=== PATIENT | male | born 1950 | race Caucasian/White ===

== ENCOUNTER 2016-12-06 10:41 | Inpatient (IN) | payer MEDICARE, BC, MEDICAID ==
[2016-12-06] VITALS (10 sets, daily range): BP systolic 138–175; BP diastolic 84–104; BMI 37.8
[~2016-12-06] VITALS: Ht 193 cm; Wt 109.8 kg
[~2016-12-06 10:41] MED LIST: BAYER ASPIRIN325 MG PO; BETAPACE 80 MG80 MG PO; CARDURA4 MG PO; COZAAR100 MG PO; ELAVIL25 MG PO; GABAPENTIN100 MG PO; HYDRALAZINE HCL50 MG PO; HYDROCODON-ACE1 EAC7 PO; LANTUS INSULIN10 ML SC; LISINOPRIL10 MG PO; NEPHRO-VITE RX1 TAB PO; NORVASC10 MG PO; NORVASC5 MG PO; OMEPRAZOLE20 M1 PO; PLAVIX75 MG PO; ROCALTROL0.25 MCG PO; SODIUM BICARBO650 MG PO; SYNTHROID100 MCG PO; TRADJENTA5 MG PO; TUMS500 MG PO; ULTRAM50 MG PO
[2016-12-06 11:26] LABS: BASOPHILS 0.2 % (0.0-2.0); EOSINOPHILS 3.8 % (0-7); HEMATOCRIT 31.2 % (42.0-54.0); HEMOGLOBIN 10.2 g/dL (13.5-17.5); IMMATURE GRANULOCYTES 0.1 % (0-5); LYMPHOCYTES 8.9 % (15-50); MCH 31.6 pg (26.0-34.0); MCHC 32.7 g/dL (31.0-37.0); MCV 96.6 fL (80.0-100.0); MEAN PLATELET VOLUME 11.1 fL (7.4-10.4); MONOCYTES 7.7 % (2-11); NEUTROPHILS 79.3 % (40-80); PLATELET COUNT 191 10x3/uL (130-400); RBC 3.23 10x6/uL (4.20-6.10); WBC 8.8 10x3/uL (4.8-10.8)
[2016-12-06 11:52] LABS: ALBUMIN 3.7 g/dL (3.4-5.0); BILIRUBIN - TOTAL 0.41 mg/dL (0.2-1.3); CALCIUM 8.3 mg/dL (8.5-10.1); CARBON DIOXIDE 21.9 mmol/L (21.0-32.0); PROTEIN - SERUM 7.7 g/dL (6.4-8.2)
[2016-12-06 12:10] LABS: ANION GAP 22.2 mmol/L (8-16); POTASSIUM - SERUM 7.1 mmol/L (3.5-5.1); TROPONIN-I 0.017 ng/mL (0.000-0.060)
[2016-12-06 16:40] LABS: ANION GAP 22.6 mmol/L (8-16); CALCIUM 8.1 mg/dL (8.5-10.1); CARBON DIOXIDE 19.4 mmol/L (21.0-32.0); CREATININE - SERUM 13.3 mg/dL (0.6-1.3)
--- NOTE | 2016-12-06 18:08 | NUR ---
1445-RECIEED FROM ER-SOB--STATED DIDNOT GO TO DIALYSIS ON WEDNESDAY WAS NOT FEELING WELL-DIALYSIS SERVICES AWARE OF ADMIT-PT STATED DROVE SELF TO HOSPITAL-SECURITY NOTIFIED OF CAR AND LOCATION-SPOKE WITH PT 1515-DIALYSIS SET UP IN PROGRESS-BMP DRAWN ORDERED 1630-DIALYSIS IN PROGRESS-CONVERSING EASILY-[facility] 1730-DIALYSIS REMAINS IN PROGRESS- 1805-DIALYSIS COMPLETING-SR ON MONITOR-[facility]
--- NOTE | 2016-12-06 23:30 | NUR ---
1929- REPORT RECVD. CARE ASSUMED. INITIAL ASSMNT COMPLETED. SEE FLOWSHEET FOR ALL FINDINGS. AWAKW AND ALERT AND ORIENTED X4. RESP SHALLOW. LUNGS CTA WITH DIM BASES PER AUSC. SPO2 95% ON O2 AT 4 LPM NC. SR ON THE MONITOR. PULSES PALP. SCDS IN USE. AFEBRILE. LEFT AVF CDI POST BEDSIDE HD. MILD HTN NOTED. DENIES PAIN. AFEBRILE. ABD SOFT, BSA X4. ANURIC. BLADDER NON PALP. HOB UP. C/L IN REACH. CONT CURRENT POC. 2100- HS MEDS GIVEN. HS SNACK PROVIDED. VSS. DENIES NEEDS. C/L IN REACH. CONT CURRENT POC. 2329- REASSESSMENT COMPLETED. SEE FLOWSHEET FOR ALL FINDINGS. AWAKE AND ALERT AND ORIENTED X4. RESP SHALLOW. LUNGS CTA WITH DIM BASES PER AUSC. SPO2 95% ON O2 AT 4 LPM NC. SR ON THE MONITOR. PULSES PALP. SCDS IN USE. AFEBRILE. LEFT AVF CDI. ANURIC. DENIES PAIN. AFEBRILE. ABD SOFT, BSA X4. HOB UP. C/L IN REACH. CONT CURRENT POC.
[2016-12-07] VITALS (21 sets, daily range): BP systolic 130–196; BP diastolic 67–95; Ht 193 cm; Wt 109.8 kg
--- NOTE | 2016-12-07 01:30 | NUR ---
RESTING SIDE LYING WITH EYES CLOSED. NO NEEDS VOICED. HOB UP. C/L IN REACH. CONT CURRENT POC.
--- NOTE | 2016-12-07 03:30 | NUR ---
REASSESSMENT COMPLETED. SEE FLOWSHEET FOR ALL FINDINGS. AWAKE AND AOX4. RESP SHALLOW. LUNGS CTA WITH DIM BASES PER AUSC. SPO2 95% ON O2 AT 4 LPM NC. SR ON THE MONITOR. PULSES PALP. SCDS IN USE. AFEBRILE. LEFT AVF CDI. ANURIC. DENIES PAIN. AFEBRILE. ABD SOFT, BSA X4. HOB UP. C/L IN REACH. CONT CURRENT POC.
--- NOTE | 2016-12-07 05:03 | NUR ---
RESTING WITH EYES CLOSED. NO NEEDS VOICED. VSS. HOB UP. C/L IN REACH. CONT CURRENT POC.
[2016-12-07 06:57] LABS: BASOPHILS 0.4 % (0.0-2.0); EOSINOPHILS 4.4 % (0-7); HEMATOCRIT 28.9 % (42.0-54.0); HEMOGLOBIN 8.9 g/dL (13.5-17.5); IMMATURE GRANULOCYTES 0.2 % (0-5); MCH 30.2 pg (26.0-34.0); MCHC 30.8 g/dL (31.0-37.0); MEAN PLATELET VOLUME 11.5 fL (7.4-10.4); MONOCYTES 9.7 % (2-11); NEUTROPHILS 69.3 % (40-80); RBC 2.95 10x6/uL (4.20-6.10)
[2016-12-07 07:02] LABS: PLATELET COUNT 129 10x3/uL (130-400); WBC 5.7 10x3/uL (4.8-10.8)
[2016-12-07 07:37] LABS: CALCIUM 8.2 mg/dL (8.5-10.1); CREATININE - SERUM 11.1 mg/dL (0.6-1.3); PHOSPHOROUS 7.9 mg/dL (2.5-4.9)
[2016-12-07 07:41] LABS: ANION GAP 17.6 mmol/L (8-16); CARBON DIOXIDE 28.7 mmol/L (21.0-32.0); POTASSIUM - SERUM 6.3 mmol/L (3.5-5.1)
--- NOTE | 2016-12-07 14:22 | NUR ---
0700 PT AWAKE ALERT AND ORIENTED X4. ABLE TO OBEY COMMANDS AND ANSWER QUESTIONS WITH NO DEFICITS. DENIES PAIN AT THIS TIME. NORMAL SINUS ON MONITOR, S1 S2 NOTED. FISTULA PRESENT IN LEFT ARM, THRILL AND BRUIT PRESENT. PT SCHEDULED FOR DIALYSIS. VITAL SIGNS STABLE.
--- NOTE | 2016-12-07 14:25 | NUR ---
0900 PT SITTING UP IN BED EATING BREAKFAST INDEPENDENTLY. ABLE TO TAKE MORNING MEDS WITHOUT DIFFICULTY. NO FURTHER CHANGES.
--- NOTE | 2016-12-07 14:25 | NUR ---
1100 NO CHANGES IN STATUS FROM PREVIOUS ASSESSMENT. PT HAS NO COMPLAINTS
--- NOTE | 2016-12-07 14:27 | NUR ---
1300 PT GETTING SET UP FOR DIALYSIS. BP MEDS HELD. PT ATE LUNCH INDEPENDENTLY WITH NO ISSUE
--- NOTE | 2016-12-07 15:14 | NUR ---
1500 PT RESTING PEACEFULLY AT THIS TIME. VITAL SIGNS STABLE. NO FURTHER CHANGES.
--- NOTE | 2016-12-07 17:50 | NUR ---
1700 PT SITTING UP EATING DINNER. TRANSFER ORDERS IN COMPUTER. PT AND VITAL SIGNS STABLE. NO FURTHER CHANGES AT THIS TIME. WILL WAIT FOR ROOM ON FLOOR
--- NOTE | 2016-12-07 19:08 | NUR ---
REPORT RECIEVED, SHIFT ASSESSMENT COMPLETE, PT IS ALERT AND ORIENTED, ON RA WITH 97% O2 SAT. LUNGS CLEAR IN B/L UPPER LOBES, DIMINISHED IN B/L LOWER LOBES, S1S2, CM-NSR, PATENT RIGHT UPPER ARM PIV PATENT LEFT ARM FISTULA, BRUITT AND THRILL NOTED, ABDOMEN IS SOFT AND ROUND WITH ACTIVE BS, PT ANURIC, NO EDEMA NOTED, ALL PPP, VSS, WILL CON'T TO MONITOR
--- NOTE | 2016-12-07 21:38 | NUR ---
NEW TRANSFERE FROM ICU. RECEIVED IN BEDROOM. SITTING IN BED WITH STAFF AT HIS SIDE TAKING VITALS. CALM AND COOPERATIVE WITH CARE. IN GOOD SPIRITS. REQUEST SOMETHING TO EAT. DENIES PAIN AT THIS TIME. CALL LIGHT IN REACH
--- NOTE | 2016-12-07 22:48 | NUR ---
RESTING IN BED WITH EYES CLOSED. NO SIGNS OF DISTRESS. CALL LIGHT IN REACH
[2016-12-08] VITALS: BP 157/72
[2016-12-08 04:00] VITALS: BP 203/95
[2016-12-08 05:59] LABS: BASOPHILS 0.3 % (0.0-2.0); HEMATOCRIT 32.9 % (42.0-54.0); IMMATURE GRANULOCYTES 0.2 % (0-5); LYMPHOCYTES 18.8 % (15-50); MCH 31.3 pg (26.0-34.0); MCHC 32.5 g/dL (31.0-37.0); MCV 96.2 fL (80.0-100.0); MEAN PLATELET VOLUME 11.5 fL (7.4-10.4); MONOCYTES 10.3 % (2-11); NEUTROPHILS 66.4 % (40-80); RBC 3.42 10x6/uL (4.20-6.10); RDW 14.5 % (11.5-14.5); WBC 6.5 10x3/uL (4.8-10.8)
[2016-12-08 06:15] LABS: ANION GAP 14.3 mmol/L (8-16); CALCIUM 8.4 mg/dL (8.5-10.1); CARBON DIOXIDE 29.4 mmol/L (21.0-32.0); CREATININE - SERUM 9.3 mg/dL (0.6-1.3); PHOSPHOROUS 7.4 mg/dL (2.5-4.9); POTASSIUM - SERUM 4.7 mmol/L (3.5-5.1)
[2016-12-08 06:37] LABS: HEMOGLOBIN 10.7 g/dL (13.5-17.5); PLATELET COUNT 162 10x3/uL (130-400)
--- NOTE | 2016-12-08 07:00 | NUR ---
RECEIVED REPORT. ASSUMED CARE OF PATIENT. CALL LIGHT WITHIN REACH. ALERT/ORIENTED. STATING HE THINKS HE MAY GO HOME TODAY. STATES HE FEELS WELL AND WAS INFORMED BY [facility] NURSE THAT ALL HIS LAB LEVELS HAD RETURNED TO BASELINE. AWAITING FOR DR.MC JORDAN TO ROUND THIS AM. NO DISTRESS.
[2016-12-08 08:08] VITALS: BP 156/81
--- NOTE | 2016-12-08 08:15 | NUR ---
WRAPPED AND SECURED RIGHT ARM IV SITE SO PATIENT CAN SHOWER AT THIS TIME. NO DISTRESS.
[2016-12-08] MEDS ORDERED: SYNTHROID100 MCG PO (11:38)
[2016-12-08 11:41] VITALS: BP 159/92
--- NOTE | 2016-12-08 12:18 | NUR ---
EMAR IS NOT WORKING PROPERLY. 1500MG TUMS ADMINISTERED AT THIS TIME. EMAR SHUTS DOWN WHEN TRYING TO DOCUMENT MEDICATION ADMINISTERED. IT DEPARTMENT IS AWARE AND TRYING TO CORRECT THE PROBLEM.
--- NOTE | 2016-12-08 12:30 | NUR ---
22 GAUGE IV REMOVED FROM RIGHT WRIST. NO BLEEDING FROM SITE. CATHETER TIP INTACT. 2X2 GAUZE APPLIED AND SECURED WITH TAPE. TOLERATED IV REMOVAL WELL. NO DISTRESS.
--- NOTE | 2016-12-08 13:32 | NUR ---
DISCHARGE INSTRUCTIONS PROVIDED TO PATIENT AT THIS TIME. 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 PATIENT AMBULATED OFF UNIT WITH ALL PERSONAL BELONGINGS. PATIENT DROVE HIMSELF TO THE HOSPITAL AND HAS HIS CAR. NO RESTRICTIONS PLACED ON DRIVING UPON DISCHARGE. PATIENT LEFT UNIT IN NO DISTRESS.
--- NOTE | 2016-12-08 13:37 | NUR ---
Patient Name: LEO LEUNG Admission Status: ER Accout number: [id number] Admission Date: 12-06-2016 : 1950 Admission Diagnosis:SHORTNESS OF BREATH Attending: JACQUELYN Current LOS: 2 Anticipated DC Date: 12-08-2016 Planned Disposition: Home Primary Insurance: MEDICARE A & B Discharge Planning Comments: * Is the patient Alert and Oriented? Yes 0 * How many steps to enter\exit or inside your home? 5 0 * PCP DR. HANNA PEREZ 0 * Pharmacy [facility] 0 * Preadmission Environment Home Alone 0 * ADLs Independent 0 * Equipment Glucometer Rolling Walker 0 * Other Equipment NO MEDICAL EQUIPMENT PROVIDER PREFERENCE 0 * List name and contact numbers for known caregivers / representatives who currently or will assist patient after discharge: NONE 0 * Community resources currently utilized Other 0 * Please name any agencies selected above. OUTPATIENT DIALYSIS, [facility], [id number], PT DRIVES SELF 0 * Additional services required to return to the preadmission environment? No 0 * Can the patient safely return to the preadmission environment? Yes 0 * Has this patient been hospitalized within the prior 30 days at any hospital? Yes 0 CM MET WITH PT IN ROOM TO DISCUSS DISCHARGE PLANNING AND NEEDS. PT REPORTS LIVING AT HOME INDEPENDENTLY AND ALONE. PT HAS GLUCOMETER AND ROLLING WALKER WITH NO MEDICAL EQUIPMENT PROVIDER PREFERENCE. PT HAS NO OUTSIDE SERVICES ASSISTING IN THE HOME. CM DISCUSSED AVAILABILITY OF HOME HEALTH, REHAB SERVICES AND MEDICAL EQUIPMENT. PT DENIES DISCHARGE NEEDS, REPORTS HE IS DRIVING HIMSELF HOME TODAY. PT REPORTS HE WILL GO TO ALL SCHEDULED DIALYSIS TREATMENTS. IMPORTANT MESSAGE FROM MEDICARE PROVIDED AND EXPLAINED. Showroom Sales Assistant: Goyo Saleh
== END 2016-12-08 13:36 | disposition home or self-care (01) | DRG 640 ==
LOC: D.ER 10:41 → D.M2 13:44 → D.ICU 13:44 → D.M2 12-07 20:59
PROVIDERS: Family Medicine; Internal Medicine Nephrology; ADMIT Internal Medicine Nephrology
PROC: 5A1D60Z (ICD-10-PCS; principal; 2016-12-06)
DX: E87.5 Hyperkalemia (principal); N18.6 End stage renal disease; I12.0 Hypertensive chronic kidney disease with stage 5 chronic kidney disease or end stage renal disease; I69.954 Hemiplegia and hemiparesis following unspecified cerebrovascular disease affecting left non-dominant side; E11.22 Type 2 diabetes mellitus with diabetic chronic kidney disease; Z99.2 Dependence on renal dialysis; Z91.15 Patient's noncompliance with renal dialysis; E11.40 Type 2 diabetes mellitus with diabetic neuropathy, unspecified; I25.10 Atherosclerotic heart disease of native coronary artery without angina pectoris; E03.9 Hypothyroidism, unspecified; I48.91 Unspecified atrial fibrillation; E83.39 Other disorders of phosphorus metabolism; Z95.5 Presence of coronary angioplasty implant and graft; R19.7 Diarrhea, unspecified

== ENCOUNTER → 2017-03-08 11:03 | Outpatient (CLI) | payer MEDICARE, BC, MEDICAID ==
[2016-12-07 10:28] VITALS: BMI 37.7
== END | disposition home or self-care (01) ==
LOC: D.LABREF 11:03
PROVIDERS: Internal Medicine Nephrology
DX: R19.7 Diarrhea, unspecified (principal)

== ENCOUNTER 2017-06-03 11:22 | Day surgery (SDC) | payer MEDICARE, BC, MEDICAID ==
[~2017-06-03] VITALS: Ht 193 cm; Wt 113.6 kg
[2017-06-03 12:11] LABS: BASOPHILS 0.6 % (0-2); EOSINOPHILS 5.3 % (0-7); HEMATOCRIT 32.4 % (42.0-54.0); IMMATURE GRANULOCYTES 0.1 % (0-5); LYMPHOCYTES 18.1 % (15-50); MCH 34.2 pg (26.0-34.0); MCV 100.6 fL (80.0-100.0); MEAN PLATELET VOLUME 11.2 fL (7.4-10.4); MONOCYTES 10.4 % (2-11); NEUTROPHILS 65.5 % (40-80); PLATELET COUNT 194 10x3/uL (130-400); RBC 3.22 10x6/uL (4.20-6.10); RDW 14.9 % (11.5-14.5); WBC 6.8 10x3/uL (4.8-10.8)
[2017-06-03 12:26] LABS: ANION GAP 20.4 mmol/L (8-16); CALCIUM 7.6 mg/dL (8.5-10.1); CARBON DIOXIDE 26.3 mmol/L (21.0-32.0); CREATININE - SERUM 9.2 mg/dL (0.6-1.3); POTASSIUM - SERUM 4.7 mmol/L (3.5-5.1)
[2017-06-03 12:36] LABS: APTT 32.7 SECONDS (22.8-39.4); INR 1.12 (0.85-1.17); PROTIME 14.2 SECONDS (11.6-15.0)
[2017-06-03 12:45] VITALS: BP 154/80; Ht 193 cm; Wt 113.6 kg
--- NOTE | 2017-06-03 15:52 | NUR ---
1545 IV DC WITH CATHER TIP INTACT W/O REDNESS
--- NOTE | 2017-06-07 15:50 | OP ---
PATIENT NAME: LEO LEUNG MEDICAL RECORD: [id number] :52 LOCATION:[facility] ADMISSION DATE: SURGEON: YOANA COPELAND DO DATE OF OPERATION: 06/03/2017 PROCEDURE: EGD with biopsies. INDICATIONS FOR PROCEDURE: Heartburn and diarrhea. SCOPE: [employer] video gastroscope. MEDICATIONS: Propofol 150 mg IV per anesthesia. ESTIMATED BLOOD LOSS: Minimal. COMPLICATIONS: None. FINDINGS: Informed consent was given. The patient was made comfortable with the above medication. After reaching an adequate level of sedation by slow IV push, the patient was placed on his left side. The endoscope was then advanced under direct visualization through the mouth to the second portion of duodenum. The upper, middle, and lower thirds of the esophagus appeared normal. 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 A single biopsy was taken at the squamocolumnar junction to confirm this diagnosis or rule out. The endoscope was then advanced beyond the GE junction into the stomach and retroflexed to view the cardia and fundus which appeared normal. In the stomach, the rugae were enlarged, but did not appear abnormal. The endoscope was advanced down to the antrum and prepyloric region, which also appeared normal. It was advanced beyond the pylorus into the duodenum where there was some erythema and granularity consistent duodenitis. The scope was then withdrawn back into the stomach and random biopsies were taken to submit for histology and to rule out H. pylori. The endoscope was then withdrawn from the patient. The patient tolerated the procedure well and there were no complications. IMPRESSIONS: 1. Reflux esophagitis grade B. 2. 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 3. Erythema and granularity in the duodenum consistent with duodenitis. PLAN AND RECOMMENDATIONS: 1. Discharge home when recovery parameters are met. 2. Follow up biopsy specimen results. 3. Continue current diet and current medications. 4. If biopsies indicate presence of H. pylori, treatment will be given. 5. If biopsies indicate Nicholson esophagus is present, surveillance endoscopies will be arranged. 6. Proceed with colonoscopy as scheduled for biopsies of the colon and collection of stool to rule out infectious cause of diarrhea. TRANSINT:[id number] Voice Confirmation ID: [id number] DOCUMENT ID: [id number] OPERATIVE REPORT [id number] LEO LEUNG YOAAN COPELAND DO at 1550 CC: [id number] DICTATION DATE: 06/03/17 1452 LINE AND FRAME POLER: 06/03/17 2321 [facility] 06/03/17 [id number] [place] [address]
== END 2017-06-03 15:57 | disposition home or self-care (01) ==
LOC: D.OPS 11:22
PROVIDERS: Anesthesiology
DX: K21.0 Gastro-esophageal reflux disease with esophagitis (principal); R19.7 Diarrhea, unspecified; F17.200 Nicotine dependence, unspecified, uncomplicated; I25.10 Atherosclerotic heart disease of native coronary artery without angina pectoris; E03.9 Hypothyroidism, unspecified; E11.22 Type 2 diabetes mellitus with diabetic chronic kidney disease; I12.0 Hypertensive chronic kidney disease with stage 5 chronic kidney disease or end stage renal disease; N18.6 End stage renal disease; Z99.2 Dependence on renal dialysis; Z95.5 Presence of coronary angioplasty implant and graft; Z01.812 Encounter for preprocedural laboratory examination

== ENCOUNTER 2017-06-10 10:13 | Day surgery (SDC) | payer MEDICARE, BC, MEDICAID | END 2017-06-10 15:40 | disposition home or self-care (01) | LOC: D.OPS 10:13 | DX: D12.4 Benign neoplasm of descending colon (principal); K63.5 Polyp of colon; K57.30 Diverticulosis of large intestine without perforation or abscess without bleeding; F17.200 Nicotine dependence, unspecified, uncomplicated; I25.10 Atherosclerotic heart disease of native coronary artery without angina pectoris; E03.9 Hypothyroidism, unspecified; Z01.812 Encounter for preprocedural laboratory examination; J44.9 Chronic obstructive pulmonary disease, unspecified; N18.6 End stage renal disease; Z99.2 Dependence on renal dialysis ==

== ENCOUNTER 2017-11-17 11:38 | Outpatient (CLI) | payer MEDICARE, BC, MEDICAID ==
[~2017-11-17] VITALS: Ht 193 cm; Wt 116.6 kg
--- NOTE | ~2017-11-17 | OP ---
PATIENT NAME: LEO LEUNG MEDICAL RECORD: [id number] :52 LOCATION:[facility] ADMISSION DATE:11/17/17 SURGEON: VIRY NOLAN MD DATE OF OPERATION: 11/18/2017 PROCEDURES: 1. PTCA stent LAD. 2. Left heart catheterization. 3. Selective coronary angiography. 4. Left ventriculogram. 5. Intravascular ultrasound. INDICATION: Unstable angina. PROCEDURE IN DETAIL: After informed consent was obtained about the risks, benefits as well as alternative therapies, the patient elected to proceed with angiogram and angioplasty. The right femoral area was prepped and draped in normal sterile fashion. The right femoral artery was cannulated via modified Seldinger technique with placement of 6-Hungarian sheath. All catheters exchanged through this sheath. FINDINGS: The left ventriculogram was performed in standard 30-degree ARCOS view, reveals decreased, ejection fraction of 30% to 35%. SELECTIVE CORONARY ANGIOGRAPHY: 1. Left main is with no significant angiographic disease. 2. Left anterior descending has a long area of 80% to 90% stenosis in the mid distal vessel. 3. Left circumflex has mild irregularities, but no flow-limiting stenosis. Intravascular ultrasound of the left circumflex reveals no significant stenosis of the circumflex. 4. Right coronary is severely diffusely diseased, multiple areas of heavy calcification and tortuosity and a subtotal stenosis. This is not amenable to transcatheter revascularization. PTCA STENT OF THE LAD: The stent used was a 2.5 x 26 and 2.25 x 18 both Integrity stents. Result was 0% residual stenosis. OVERALL IMPRESSION: Successful percutaneous transluminal coronary angioplasty stent of the left anterior descending going from 80% to 90% initial stenosis to 0% residual stenosis, very significant disease of the diffusely diseased RCA that has to be treated medically. TRANSINT:[id number] Voice Confirmation ID: [id number] DOCUMENT ID: [id number] VIRY NOLAN MD at 1148 CC: [id number] DICTATION DATE: 11/18/17 1322 COMMUNICABLE DISEASE SPECIALIST: 11/18/17 1331 DIS IN 11/18/17 [facility] [address] [place] [address]
--- NOTE | ~2017-11-17 | DS ---
PATIENT:LEO PEREZ :52 MEDICAL RECORD: [id number] DISCHARGE SUMMARY ADMISSION DATE: 11/17/17 DISCHARGE DATE: 11/18/17 DISCHARGE DIAGNOSES: 1. Unstable angina. 2. Coronary artery disease. 3. Hypertension. 4. Hyperlipidemia. HOSPITAL COURSE: Mr. Perez presents with unstable anginal symptomatology, found to have 2-vessel disease to the LAD and RCA. The RCA is not amenable to transcatheter revascularization due to the diffuse severe nature of the disease. The LAD was amenable, underwent successful PTCA stent of the LAD. Discharged home with the addition of Plavix and aspirin to his medical regimen. He will follow up with [facility] in 1 month. TRANSINT:[id number] Voice Confirmation ID: [id number] DOCUMENT ID: [id number] VIRY NOLAN MD at 1148 CC: [id number] DICTATION DATE: 11/18/17 1320 TONG CARRIER: 11/18/17 1513 DIS IN 11/18/17 [facility] [address] [place] [address]
--- NOTE | ~2017-11-17 | HEMODYNAMI ---
PATIENT:LEO LEUNG MEDICAL RECORD: [id number] : 52 LOCATION[facility] [facility] [id number] ADMISSION DATE: 11/17/17 Generatedon:11/18/201713:24 Patient name: LEO LEUNG Patient #: [id number] SSN: : Date of study: 11/18/2017 Page: Of Hemodynamic Procedure Report Patient Data Patient Demographics Procedure consent was obtained First Name: LEO Gender: Male Last Name: XOCHITL : 1950 [facility] Initial: D Age: 67 year(s) Patient #: [id number] Race: Additional ID: [id number] Contact details Address: [address] [place] [address] ROAD State: [place] City: [place] Zip code: [facility] Past Medical History Allergies Allergen Reaction Date Comments Reported Other allergy 12/24/2015 ultram Other allergy 07/04/2016 Tramadol Admission Admission Data Admission Date: 11/17/2017 Admission Time: 16:52 Room #: .2124 Procedure Procedure Types Cath Procedure Diagnostic Procedure [facility] w/Coronaries FFR/IVUS Intra-Coronary IVUS Initial PCI Procedure Coronary Stent Coronary Stent Initial Miscellaneous Procedures Moderate Sedation up to 15 minutes Procedure Description Procedure Date Procedure Date: 11/18/2017 Procedure Start Time: 13:02 Procedure End Time: 13:24 Procedure Staff Name Function Jose D Mojica MD Performing Physician Nancy Cotton RT Monitor Mauro Melara RT Scrub Johann Tse RN Nurse Procedure Data Cath Procedure Fluoroscopy Diagnostic fluoroscopy Total fluoroscopy Time: 4.7 time: 4.7 min min Diagnostic fluoroscopy Total fluoroscopy dose: dose: 1644 mGy 1644 mGy Contrast Material Contrast Material Type Amount (ml) Isovue 300 113 Entry Location Entry Primary Successful Side Size Upsize Upsize Entry Closure Succes sful Closure Location (Fr) 1 (Fr) 2 (Fr) Remarks Device Remarks Femoral Right 5 Fr 6 Fr Exoseal artery Short Estimated blood loss: 10 ml Diagnostic catheters Device Type Used For End Catheter Placement MULTIPACK Pigtail 5 Fr LV Angiography catheter MULTIPACK JL 4.0 5Fr Left Coronary catheter Angiography MULTIPACK 3DRC 5Fr Right Coronary catheter Angiography Procedure Complications No complications Procedure Medications Medication Administration Route Dosage 0.9% NaCl I.V. 100 ml/hr Oxygen NC 2 l/min Heparin Flush Bag added to field 2 bags (1000units/500ml NS) Lidocaine 2% added to field 20 Versed I.V. 2 mg Fentanyl I.V. 100 mcg Fentanyl I.V. 50 mcg Versed I.V. 1 mg Heparin Bolus I.V. 4000 units Integrilin (Bolus I.V. 10.2 ml 2mg/ml) Integrilin (Bolus wasted 9.8 ml 2mg/ml) Plavix P.O. 600 mg Hemodynamics Rest Heart Rate: 63 (bpm) Snapshots Pre Cath Intra NCS Post Cath Vital Signs Time Heart Resp SPO2 etCO2 NIBP (mmHg) Rhythm Pain Sedation Rate (ipm) (%) (mmHg) Status Level (bpm) 12:53:23 61 14 98 0 162/90(130) NSR 0 (11) 10(A) , No pain 12:58:11 62 13 98 0 153/88(131) NSR 0 (11) 10(A) , No pain 13:02:56 59 17 96 0 116/67(93) NSR 0 (11) 10(A) , No pain 13:08:20 71 14 90 0 118/78(103) NSR 0 (11) 10(A) , No pain 13:13:04 64 17 97 0 126/66(101) NSR 0 (11) 10(A) , No pain 13:17:49 62 15 98 0 123/71(96) NSR 0 (11) 10(A) , No pain 13:22:34 65 10 97 0 122/71(94) NSR 0 (11) 10(A) , No pain Medications Time Medication Route Dose Verified Delivered Reason Notes Effectiveness by by 12:57:04 0.9% NaCl I.V. 100 Johann Johann Per physician ml/hr Dedrick Tse RN RN 12:57:18 Oxygen NC 2 Johann Johann Per physician l/min Dedrick Tse RN RN 12:57:29 Heparin Flush added 2 Johann Johann used for Bag to bags Lorigan Lorigan procedure (1000units/500ml field RN RN NS) 12:57:40 Lidocaine 2% added 20ml Johann Johann for local to vial Dedrick Tse anesthetic RN RN 12:58:20 Versed I.V. 2 mg Johann Johann for sedation Dedrick Tse RN RN 12:58:29 Fentanyl I.V. 100 Johann Johann for sedation mcg Dedrick Tse RN RN 13:01:40 Fentanyl I.V. 50 Johann Johann for sedation mcg Dedrick Tse RN RN 13:01:47 Versed I.V. 1 mg Johann Johann for sedation Dedrick Tse RN RN 13:11:06 Heparin Bolus I.V. 4000 Johann Johann for units Dedrick Tse anticoagulation RN RN 13:11:28 Integrilin I.V. 10.2 Johann Johann for (Bolus 2mg/ml) ml Dedrick Tse antiplatelet RN RN therapy 13:11:45 Integrilin wasted 9.8 Johann Johann to sharp's (Bolus 2mg/ml) ml Dedrick Tse RN RN 13:19:17 Plavix P.O. 600 Johann Johann for mg Dedrick Tse antiplatelet RN RN therapy Procedure Log Time Note 12:26:42 Mauro Melara RT(R) (CV) sent for patient. Start room use. 12:43:50 Time tracking: Regular hours 12:43:53 Plan of Care:Hemodynamics will remain stable., Cardiac rhythm will remain stable., Comfort level will be maintained., Respiratory function will remain adequate., Patient/ family verbilizes understanding of procedure., Procedure tolerated without complication., Recovers from procedure without complications.. 12:46:47 Patient received from PCU to CCL 1 Alert and oriented. Tansferred to table in Supine position. 12:46:48 Warm blankets applied, and yani hugger turned on for patient comfort. 12:46:48 Correct patient and procedure confirmed by team. 12:46:49 Signed procedure consent form obtained from patient. 12:46:50 ECG and BP/O2 sat monitors applied to patient. 12:46:51 Full Disclosure recording started 12:52:24 Vital chart was started 12:52:33 Rhythm: sinus rhythm 12:52:41 H&P Date Dictated: 11/17/2017 Within 30 days and on chart., H&P Addendum completed by physician on day of procedure. (MUST COMPLETE FOR ALL OUTPATIENTS). 12:52:43 Pre-procedure instructions explained to patient. 12:52:43 Pre-op teaching completed and patient verbalized understanding. 12:52:45 Family in waiting room. 12:52:46 Patient NPO since Midnight. 12:52:54 Is the patient allergic to Iodine/contrast media? No. 12:52:57 Is patient on blood thinner?No 12:53:43 Patient diabetic? No. 12:53:45 Previous problem with sedation/anesthesia? No ? 12:53:46 Snore? Yes 12:53:47 Sleep apnea? Yes 12:53:48 Deviated septum? No 12:53:48 Opens mouth fully? Yes 12:53:49 Sticks out tongue? Yes 12:53:51 Airway obstruction? No ? 12:53:52 Dentures? Yes in 12:53:54 Pre procedure: right dorsailis pedis pulse 2+ Normal; easily identifiable; not easily obliterated 12:54:05 Patient pain scale 0/10 ?. 12:54:12 IV patent on arrival in right wrist with 0.9% NaCl at O. 12:54:16 Lab results completed and on chart. 12:54:20 Right groin area was prepped with chlora-prep and draped in sterile fashion 12:54:21 Alarms reviewed by R. N. 12:54:21 Sharps counted by scrub and verified by R.N. 12:54:24 Use device set Femoral Dx 12:54:25 ACIST Syringe (27439) opened to sterile field. 12:54:26 Bag Decanter (2002S) opened to sterile field. 12:54:26 Medline Cath Pack ([id number]) opened to sterile field. 12:54:26 SHEATH 5FR Mcdavid (FTH239) opened to sterile field. 12:54:28 DIAGNOSTIC WIRE .035 260cm J wire (884827) opened to sterile field. 12:54:29 ACIST Hand Control (66577) opened to sterile field. 12:54:30 ACIST Manifold (12416) opened to sterile field. 12:54:30 DIAGNOSTIC Multipack 5Fr catheter set ([id number]) opened to sterile field. 12:54:30 Tegaderm 4 x 4 (1626W) opened to sterile field. 12:54:31 PERCUTANEOUS ENTRY 19GA needle opened to sterile field. 12:57:04 0.9% NaCl 100 ml/hr I.V. was administered by Johann Tse RN; Per physician; 12:57:18 Oxygen 2 l/min NC was administered by Johann sTe RN; Per physician; 12:57:29 Heparin Flush Bag (1000units/500ml NS) 2 bags added to field was administered by Johann Tse RN; used for procedure; 12:57:40 Lidocaine 2% 20ml vial added to field was administered by Johann Tse RN; for local anesthetic; 12:57:59 Final Timeout: patient, procedure, and site verified with staff and physician. All members of the team are in agreement. 12:58:00 Right groin site verified by team. 12:58:02 Physical assessment completed. ASA score P 2 - A patient with mild systemic disease as per Jose D Mojica MD. 12:58:05 Sedation plan: IV Moderate Sedation Medication:Versed, Fentanyl 12:58:08 Baseline sample Acquired. 12:58:20 Versed 2 mg I.V. was administered by Johann Tse RN; for sedation; 12:58:29 Fentanyl 100 mcg I.V. was administered by Johann Tse RN; for sedation; 13:01:40 Fentanyl 50 mcg I.V. was administered by Johann Tse RN; for sedation; 13:01:47 Versed 1 mg I.V. was administered by Johann Tse RN; for sedation; 13:02:12 Procedure started. 13:02:13 Zero performed for pressure channel P1 13:02:18 Local anesthetic to right femoral artery with Lidocaine 2% by Jose D Mojica MD.INITIAL ACCESS ONLY 13:02:30 A 5 Fr sheath was inserted into the Right Femoral artery 13:02:52 A MULTIPACK Pigtail 5 Fr catheter was advanced over the wire and used for LV Angiography. 13:03:35 LV gram done using ARCOS 13:03:39 EF : 35 % 13:03:40 LV hemodynamics recorded. 13:03:42 Injector settings: Ml/sec: 10, Volume: 20, 13:03:44 Catheter removed. 13:04:17 A MULTIPACK JL 4.0 5Fr catheter was advanced over the wire and used for Left Coronary Angiography. 13:04:56 Catheter removed. 13:05:29 A MULTIPACK 3DRC 5Fr catheter was advanced over the wire and used for Right Coronary Angiography. 13:06:35 Catheter removed. 13:07:17 [place] IVUS Catheter (09886V) opened to sterile field. 13:07:20 Use device set TAUTH PCI 13:07:24 INFLATOR Merit BasixCompak (OM5714) opened to sterile field. 13:07:24 SHEATH 6FR Mcdavid (WZY319) opened to sterile field. 13:07:30 CHOICE PT Extra Support 182cm wire ([id number]) opened to sterile field. 13:07:35 GUIDE 6FR XBLAD 4.0 catheter ([id number]) opened to sterile field. 13:08:19 Sheath upsized to a 6 Fr Short. 13:09:14 6 Fr XBLAD 4.0 guide catheter was inserted over the wire 13:09:27 Choice PT ES wire advanced. 13:09:47 IVUS catheter advanced over wire. 13:11:06 Heparin Bolus 4000 units I.V. was administered by Johann Tse RN; for anticoagulation; 13:11:27 IVUS pass to Circ lesion performed. 13:11:28 Integrilin (Bolus 2mg/ml) 10.2 ml I.V. was administered by Johann Tse RN; for antiplatelet therapy; 13:11:34 Wire redirected to LAD. 13:11:45 Integrilin (Bolus 2mg/ml) 9.8 ml wasted was administered by Johann Tse RN; to sharp's; 13:14:42 Inflation Number: 1 A INTEGRITY RX 2.5 x 26 stent ([id number]) was prepped and advanced across the Dist LAD. The stent was deployed at 15 DEANA for 0:10 (min:sec). 13:15:06 Stent catheter was removed intact over wire. 13:16:17 Inflation Number: 2 A INTEGRITY RX 2.25 x 18 stent ([id number]) was prepped and advanced across the Dist LAD. The stent was deployed at 13 DEANA for 0:09 (min:sec). 13:16:32 Stent catheter was removed intact over wire. 13:16:33 Wire removed. 13:16:35 Guide catheter removed. 13:16:49 Sheath removed intact; hemostasis achieved with Exoseal to the Right Femoral artery. 13:16:51 Procedure ended.(Physican Out) 13:17:48 Fluoroscopy time 04.70 minutes. 13:17:52 Fluoroscopy dose: 1644 mGy 13:17:52 Flurop Dose total: 1644 13:17:56 Contrast amount:Isovue 300 113ml. 13:17:57 Sharps counted by scrub and verified by R.N. 13:17:59 Insertion/operative site no bleeding no hematoma. 13:18:03 Post-op/insertion site Right Femoral artery dressed using a 4 x 4 and Tegaderm. 13:18:06 Post right femoral artery:stable, clean and dry 13:18:08 Post Procedure Pulses reassessed and unchanged 13:18:11 Post-procedure physical assessment completed. ASA score P 2 - A patient with mild systemic disease as per Jose D Mojica MD. 13:18:17 Post procedure rhythm: unchanged. 13:18:19 Estimated blood loss: 10 ml 13:18:21 Post procedure instruction explained to patient.Patient verbalizes understanding. 13:18:21 Patient needs reinforcement of post procedure teaching. 13:18:37 Procedure type changed to Cath procedure, Diagnostic procedure, LHC, LHC w/Coronaries, FFR/IVUS, Intra-Coronary IVUS Initial, PCI procedure, Coronary Stent, Coronary Stent Initial, Miscellaneous Procedures, Moderate Sedation up to 15 minutes 13:19:09 Procedure Complication : No complications 13:19:12 See physician's report for complete and final results. 13:19:17 Plavix 600 mg P.O. was administered by Johann Tse RN; for antiplatelet therapy; 13:20:24 EXOSEAL 6Fr (EX600) opened to sterile field. 13:21:13 Procedure and supply charges have been captured, reviewed, submitted and are correct. 13:24:00 Vital chart was stopped 13:24:02 Report given to PCU. 13:24:05 Patient transfered to PCU with Stretcher. 13:24:13 Procedure ended. 13:24:13 Full Disclosure recording stopped 13:24:16 End room use (Document Last) Intervention Summary Intervention Notes Time ActionType Lesion and Equipment Action# Pressure Duration Attributes Used 13:14:42 Place stent Dist LAD INTEGRITY RX 1 15 00:10 2.5 x 26 stent ([id number]) 13:16:17 Place stent Dist LAD INTEGRITY RX 2 13 00:09 2.25 x 18 stent ([id number]) Device Usage Item Name Manufacture Quantity Catalog Number Hospital Part Current Mini mal Lot# / Charge Number Stock Stock Serial# Code ACIST Acist 1 10874 702318 527583 227034 20 Syringe Medical (34877) Systems Inc Bag Decanter Microtek 1 2001S 007028 10731 008462 5 (2001S) Medical Inc. Medline Cath Cardinal 1 [id number] 765368 08190 596529 5 Pack Health ([id number]) SHEATH 5FR Terumo 1 NQD164 778874 397909 181006 40 Mcdavid (SQD607) DIAGNOSTIC St Chalino 1 707335 362627 176496 363536 30 WIRE .035 260cm J wire (522056) ACIST Hand Acist 1 86982 655426 967520 566904 5 Control Medical (41572) Systems Inc ACIST Acist 1 95474 177377 214117 301054 5 Manifold Medical (79718) Systems Inc DIAGNOSTIC Cardinal 1 NG5701 206891 43084 347170 30 MultipRPost 5Fr catheter set (NO0673) Tegaderm 4 x 3M 1 1626W 736830 120416 676253 5 4 (1626W) PERCUTANEOUS Cook Medical 1 G54365 884183 605264 5 ENTRY 19GA needle MULTIPACK Cardinal 1 803248 5 Pigtail 5 Fr Health catheter MULTIPACK JL Cardinal 1 830590 5 4.0 5Fr Health catheter MULTIPACK Cardinal 1 068356 5 3DRC 5Fr Health catheter Burke Burke 1 34944H 689068 409507 603782 8 [place] IVUS Catheter (04872M) INFLATOR Merit 1 YU4501 477292 338741 044494 15 Zerista Medical BasixCompak (FV3241) SHEATH 6FR Terumo 1 MWF248 420647 540842 328150 40 Mcdavid (IBQ352) CHOICE PT [place] 1 [id number] 965102 020222 860603 5 Extra Scientific Support 182cm wire (3424989X8) GUIDE 6FR Cardinal 1 43077449 996987 577418 975175 3 XBLAD 4.0 Health catheter (35054514) INTEGRITY RX Medtronic 1 [id number] 245793 906499 024926 5 [id number] 2.5 x 26 stent ([id number]) INTEGRITY RX Medtronic 1 [id number] 411055 129104 428827 5 [id number] 2.25 x 18 stent ([id number]) EXOSEAL 6Fr Cardinal 1 EX600 734561 604060 428859 10 (EX600) Health Signature Audit [place] Stage Time Signature Unsigned Intra-Procedure 11/18/2017 Nancy 1:24:31 PM Counts RT(R) Signatures Monitor : Nancy Signature : Counts RT Date : Time : [address] [address]
--- NOTE | ~2017-11-17 | CN ---
PATIENT NAME:LEO PEREZ MEDICAL RECORD: [id number] : 52 LOCATION:. D.2124 ADMIT DATE: 11/17/17 ACCOUNT: [id number] CONSULTING PHYSICIAN: VIRY NOLAN MD REFERRING PHYSICIAN: VIRY NOLAN MD DATE OF CONSULTATION: 11/17/2017 Cardiology Consult DIAGNOSES: 1. Angina. 2. Shortness of breath, dyspnea on exertion. 3. Coronary artery disease. 4. Hypertension. 5. Hyperlipidemia. 6. End-stage renal failure, on dialysis. HISTORY OF PRESENT ILLNESS: Mr. Perez had an episode of chest pain today with dialysis, but is associated with hypotension, near the end of dialysis. He has been having problems with hypotension, near the end of dialysis recently; however, he continues to have this, this is the first time he has had chest pain, does have a history of cardiac stents, last being a year ago. His EKG is normal. Troponin is normal. PHYSICAL EXAMINATION: GENERAL APPEARANCE: Well-nourished, well-developed, appears stated age. Level of distress, comfortable. PSYCHIATRIC: Mental status, alert, normal affect. Orientation, oriented to time, place and person. EYES: Lids and conjunctiva, noninjected. No discharge, no pallor. ENT: Lips, teeth, gums, normal dentition. Oropharynx, no cyanosis, no pallor. NECK: Carotid arteries, bilateral normal upstroke, no bruits, no thrills. JUGULAR VEINS: No jugular venous pressure or distention. CERVICAL LYMPH NODES: Nontender, nonenlarged. THYROID: Not enlarged. Nontender. No nodules. LUNGS: Respiratory effort, unlabored. CHEST: Normal curvature. No thoracic deformity. No chest wall tenderness. Percussion, resonant. Auscultation, clear. No wheezes, no rales, no rhonchi. CARDIOVASCULAR: Precordial exam, nondisplaced. No heaves or pericardial thrills. Rate and rhythm, regular. Heart sounds, normal S1, normal S2. No S3, no gallop, no rub. Systolic murmur, not heard. Diastolic murmur, not heard. EXTREMITIES: No cyanosis, no edema. Peripheral pulses, full and equal in all extremities, except as noted. No bruits appreciated. ABDOMEN: Soft, nondistended. Normal aorta. No bruit. Nontender. No masses. Liver, nontender, no hepatomegaly. Spleen, nontender, no splenomegaly. MUSCULOSKELETAL: No joint tenderness. No joint swelling. No erythema. NEUROLOGICAL: Normal gait, normal strength, normal tone. SKIN: Warm and dry. OVERALL IMPRESSION: At this time, most likely secondary to the hypotension from and physiological demand from the dialysis. We will get another troponin. If this is normal, we can discharge him with follow up with Dr. Roberts within the next 2 weeks. TRANSINT:[id number] Voice Confirmation ID: [id number] DOCUMENT ID: [id number] CONSULT REPORT [id number] LEO PEREZ, VIRY CASTELLON at 1322 CC: [id number] DICTATION DATE: 11/17/17 1328 PYROTECHNICS PRESS TENDER: 11/17/17 1424 ADM IN [facility] [address] [place] [address]
[2017-11-17 12:03] LABS: BASOPHILS 0.3 % (0-2); EOSINOPHILS 5.2 % (0-7); HEMATOCRIT 36.3 % (42.0-54.0); HEMOGLOBIN 12.3 g/dL (13.5-17.5); IMMATURE GRANULOCYTES 0.2 % (0-5); LYMPHOCYTES 24.5 % (15-50); MCH 34.5 pg (26.0-34.0); MCHC 33.9 g/dL (31.0-37.0); MCV 101.7 fL (80.0-100.0); MEAN PLATELET VOLUME 11.1 fL (7.4-10.4); MONOCYTES 8.7 % (2-11); NEUTROPHILS 61.1 % (40-80); PLATELET COUNT 194 10x3/uL (130-400); RBC 3.57 10x6/uL (4.20-6.10); RDW 14.1 % (11.5-14.5)
[2017-11-17 12:18] LABS: ALBUMIN 3.9 g/dL (3.4-5.0); ALKALINE PHOSPHATASE 91 U/L (46-116); ALT (SGPT) 18 U/L (10-68); BILIRUBIN - TOTAL 0.36 mg/dL (0.2-1.3); CALC OSMOLALITY 282 mosm/kg (275-300); CALCIUM 8.6 mg/dL (8.5-10.1); CARBON DIOXIDE 27.9 mmol/L (21.0-32.0); CHLORIDE - SERUM 97 mmol/L (98-107); CREATININE - SERUM 6.6 mg/dL (0.6-1.3); GLUCOSE 120 mg/dL (74-106); POTASSIUM - SERUM 4.3 mmol/L (3.5-5.1); PROTEIN - SERUM 8.8 g/dL (6.4-8.2); SODIUM 138 mmol/L (136-145); UREA NITROGEN 30 mg/dL (7-18); eGFR NON AFRICAN AMERICAN 9 mL/min (90-120)
[2017-11-17 12:26] LABS: CHOL - HDL RATIO 4.5 ratio (2.3-4.9); CHOLESTEROL, TOTAL 165 mg/dL (0-200); CKMB 2.3 U/L (0.0-3.6); CREATINE KINASE 116 UL (21-232); HDL CHOLESTEROL 37 mg/dL (32-96); LDL CHOLESTEROL 103 mg/dL (0-100); LDL-HDL RATIO 2.8 ratio (1.5-3.5); TRIGLYCERIDE 125 mg/dL (30-200)
[2017-11-17 12:30] LABS: TROPONIN-I < 0.017 ng/mL (0.000-0.060)
[2017-11-17 19:00] VITALS: BP 145/77
[2017-11-17] MEDS ORDERED: HYDROCODON-ACE1 EAC7 PO (20:49)
[2017-11-18 02:21] VITALS: Ht 193 cm; Wt 116.6 kg
[2017-11-18 04:00] VITALS: BP 140/81
[2017-11-18 07:44] VITALS: BP 141/83
[2017-11-18 12:13] VITALS: BP 145/85
[2017-11-18] MEDS ORDERED: PLAVIX75 MG PO (14:15)
== END 2017-11-18 18:00 | disposition home or self-care (01) ==
LOC: OBSVTIME → D.OPS 11:38 → D.ER 11:38 → D.EDHOLD 16:52 → OBSVTIME 16:52 → D.M2 16:52 → D.EDHOLD 16:52 → D.M2 18:38 → D.EDHOLD 18:38 → EDSTATUS 11-18 12:15 → D.CLR 11-18 13:40 → D.M2 11-18 13:40 → D.CLR 11-18 18:00 → D.OPS 11-18 18:00
PROVIDERS: Emergency Medicine
DX: I25.110 Atherosclerotic heart disease of native coronary artery with unstable angina pectoris (principal); I12.0 Hypertensive chronic kidney disease with stage 5 chronic kidney disease or end stage renal disease; N18.6 End stage renal disease; Z99.2 Dependence on renal dialysis; E78.5 Hyperlipidemia, unspecified; Z01.812 Encounter for preprocedural laboratory examination

== ENCOUNTER 2017-11-19 08:16 | Emergency (ER) | payer MEDICARE, BC, MEDICAID ==
[2017-11-19 08:46] LABS: BASOPHILS 0.1 % (0-2); EOSINOPHILS 5.5 % (0-7); HEMATOCRIT 35.4 % (42.0-54.0); IMMATURE GRANULOCYTES 0.1 % (0-5); MCH 34.5 pg (26.0-34.0); MCHC 33.9 g/dL (31.0-37.0); MCV 101.7 fL (80.0-100.0); MEAN PLATELET VOLUME 11.4 fL (7.4-10.4); MONOCYTES 7.3 % (2-11); PLATELET COUNT 173 10x3/uL (130-400); RBC 3.48 10x6/uL (4.20-6.10); RDW 14.1 % (11.5-14.5); WBC 7.2 10x3/uL (4.8-10.8)
[2017-11-19 08:59] LABS: ALBUMIN 3.6 g/dL (3.4-5.0); ALKALINE PHOSPHATASE 79 U/L (46-116); BILIRUBIN - TOTAL 0.36 mg/dL (0.2-1.3); CALCIUM 8.1 mg/dL (8.5-10.1); CARBON DIOXIDE 24.7 mmol/L (21.0-32.0); CHLORIDE - SERUM 97 mmol/L (98-107); GLUCOSE 140 mg/dL (74-106); PROTEIN - SERUM 7.8 g/dL (6.4-8.2); SODIUM 135 mmol/L (136-145)
[2017-11-19 09:00] LABS: ALT (SGPT) 26 U/L (10-68); CALC OSMOLALITY 284 mosm/kg (275-300); CREATININE - SERUM 9.4 mg/dL (0.6-1.3); UREA NITROGEN 48 mg/dL (7-18); eGFR NON AFRICAN AMERICAN 6 mL/min (90-120)
[2017-11-19 09:10] LABS: CHOL - HDL RATIO 5.5 ratio (2.3-4.9); CHOLESTEROL, TOTAL 153 mg/dL (0-200); CKMB 13.4 U/L (0.0-3.6); CREATINE KINASE 230 UL (21-232); HDL CHOLESTEROL 28 mg/dL (32-96); LDL CHOLESTEROL 105 mg/dL (0-100); LDL-HDL RATIO 3.8 ratio (1.5-3.5); TRIGLYCERIDE 104 mg/dL (30-200)
[2017-11-19 09:15] LABS: TROPONIN-I 11.625 ng/mL (0.000-0.060)
== END 2017-11-19 09:42 | disposition home or self-care (01) ==
LOC: D.ER 08:16
PROVIDERS: Emergency Medicine
DX: R07.9 Chest pain, unspecified (principal)

== ENCOUNTER → 2017-12-28 09:38 | Outpatient (CLI) | payer MEDICARE, BC, MEDICAID ==
[~2017-12-28 09:38] MED LIST changes: +ENTRESTO 24 MG1 EACH PO; +LEVOXYL100 MCG PO; +RENA-VITE TABL0.8 MG PO
== END | disposition home or self-care (01) ==
LOC: D.RAD 09:38
DX: R06.02 Shortness of breath (principal)

== ENCOUNTER 2018-02-21 09:41 | Emergency (ER) | payer MEDICARE, BC, MEDICAID ==
[~2018-02-21 09:41] MED LIST changes: -ENTRESTO 24 MG1 EACH PO; -LEVOXYL100 MCG PO; -RENA-VITE TABL0.8 MG PO
[2018-02-21 10:36] LABS: BASOPHILS 0.4 % (0-2); EOSINOPHILS 4.9 % (0-7); HEMOGLOBIN 9.2 g/dL (13.5-17.5); IMMATURE GRANULOCYTES 0.2 % (0-5); LYMPHOCYTES 18.2 % (15-50); MCH 34.1 pg (26.0-34.0); MCHC 34.1 g/dL (31.0-37.0); MEAN PLATELET VOLUME 10.9 fL (7.4-10.4); MONOCYTES 9.2 % (2-11); NEUTROPHILS 67.1 % (40-80); PLATELET COUNT 165 10x3/uL (130-400); RDW 13.8 % (11.5-14.5); WBC 5.1 10x3/uL (4.8-10.8)
[2018-02-21 10:47] LABS: ALBUMIN 3.1 g/dL (3.4-5.0); ALKALINE PHOSPHATASE 70 U/L (46-116); ALT (SGPT) 13 U/L (10-68); CALC OSMOLALITY 285 mosm/kg (275-300); CARBON DIOXIDE 30.7 mmol/L (21.0-32.0); CHLORIDE - SERUM 100 mmol/L (98-107); CREATININE - SERUM 7.2 mg/dL (0.6-1.3); GLUCOSE 119 mg/dL (74-106); POTASSIUM - SERUM 3.9 mmol/L (3.5-5.1); PROTEIN - SERUM 7.1 g/dL (6.4-8.2); SODIUM 138 mmol/L (136-145); UREA NITROGEN 39 mg/dL (7-18); eGFR NON AFRICAN AMERICAN 8 mL/min (90-120)
[2018-02-21 10:51] LABS: CREATINE KINASE 62 UL (21-232); TROPONIN-I < 0.017 ng/mL (0.000-0.060)
== END 2018-02-21 11:24 | disposition home or self-care (01) ==
LOC: D.ER 09:41
PROVIDERS: Emergency Medicine
DX: R00.1 Bradycardia, unspecified (principal); I12.9 Hypertensive chronic kidney disease with stage 1 through stage 4 chronic kidney disease, or unspecified chronic kidney disease; N18.9 Chronic kidney disease, unspecified; J44.9 Chronic obstructive pulmonary disease, unspecified

== ENCOUNTER 2018-02-25 12:31 | Inpatient (IN) | payer MEDICARE, BC, MEDICAID ==
[2018-02-25] VITALS (8 sets, daily range): BP systolic 116–156; BP diastolic 56–91; BMI 31.0
[~2018-02-25] VITALS: Ht 193 cm; Wt 114.5 kg
--- NOTE | ~2018-02-25 | CN ---
PATIENT NAME:LEO PEREZ MEDICAL RECORD: [id number] : 52 LOCATION:D. D.2112 ADMIT DATE: 02/25/18 ACCOUNT: [id number] CONSULTING PHYSICIAN: VIRY NOLAN MD REFERRING PHYSICIAN: RHETT HAZEL MD DATE OF CONSULTATION: 02/25/2018 Cardiology Consultation DIAGNOSES: 1. Angina. 2. Abnormal ECG. 3. Coronary artery disease. 4. Previous percutaneous transluminal coronary angioplasty stent. 5. Anemia. 6. Gastrointestinal bleed. 7. End-stage renal failure, on dialysis. HISTORY OF PRESENT ILLNESS: Mr. Perez presents with chest discomfort after dialysis. His EKG has definite ST-T changes laterally and anteriorly. He is status post PTCA stent of the LAD in October. He was doing well until a week ago after a colonoscopy and endoscopy. He began having black tarry stools and he has not felt well, since then his hemoglobin is 6.2. PHYSICAL EXAMINATION: GENERAL APPEARANCE: Well-nourished, well-developed, appears stated age. Level of distress, comfortable. PSYCHIATRIC: Mental status, alert, normal affect. Orientation, oriented to time, place and person. EYES: Lids and conjunctiva, noninjected. No discharge, no pallor. ENT: Lips, teeth, gums, normal dentition. Oropharynx, no cyanosis, no pallor. NECK: Carotid arteries, bilateral normal upstroke, no bruits, no thrills. JUGULAR VEINS: No jugular venous pressure or distention. CERVICAL LYMPH NODES: Nontender, nonenlarged. THYROID: Not enlarged. Nontender. No nodules. LUNGS: Respiratory effort, unlabored. CHEST: Normal curvature. No thoracic deformity. No chest wall tenderness. Percussion, resonant. Auscultation, clear. No wheezes, no rales, no rhonchi. CARDIOVASCULAR: Precordial exam, nondisplaced. No heaves or pericardial thrills. Rate and rhythm, regular. Heart sounds, normal S1, normal S2. No S3, no gallop, no rub. Systolic murmur, not heard. Diastolic murmur, not heard. EXTREMITIES: No cyanosis, no edema. Peripheral pulses, full and equal in all extremities, except as noted. No bruits appreciated. ABDOMEN: Soft, nondistended. Normal aorta. No bruit. Nontender. No masses. Liver, nontender, no hepatomegaly. Spleen, nontender, no splenomegaly. MUSCULOSKELETAL: No joint tenderness. No joint swelling. No erythema. NEUROLOGICAL: Normal gait, normal strength, normal tone. SKIN: Warm and dry. OVERALL IMPRESSION: Anginal symptomatology, but in conjunction with the anemia. At this time, we do not need to perform cardiac catheterization, only replace blood. From a standpoint of dual antiplatelet therapy, we can discontinue the aspirin as well as the Plavix as he received bare metal stents in October. We will restart the aspirin when stable from GI and bleeding standpoint. CONSULT REPORT [id number] LEO PEREZ TRANSINT:[id number] Voice Confirmation ID: [id number] DOCUMENT ID: [id number] VIRY NOLAN MD at 1403 CC: [id number] DICTATION DATE: 02/25/18 1512 RUBBER MOLDER: 02/25/18 1542 ADM IN [facility] [address] [place] [address]
[2018-02-25 12:51] LABS: BASOPHILS 0.4 % (0-2); EOSINOPHILS 3.1 % (0-7); IMMATURE GRANULOCYTES 0.2 % (0-5); LYMPHOCYTES 23.5 % (15-50); MCHC 35.8 g/dL (31.0-37.0); MCV 100.6 fL (80.0-100.0); MEAN PLATELET VOLUME 10.4 fL (7.4-10.4); MONOCYTES 10.1 % (2-11); NEUTROPHILS 62.7 % (40-80); PLATELET COUNT 172 10x3/uL (130-400); WBC 5.5 10x3/uL (4.8-10.8)
[2018-02-25 12:54] LABS: HEMATOCRIT 17.6 % (42.0-54.0); HEMOGLOBIN 6.3 g/dL (13.5-17.5); RBC 1.75 10x6/uL (4.20-6.10)
[2018-02-25 13:14] LABS: ALBUMIN 2.9 g/dL (3.4-5.0); ALKALINE PHOSPHATASE 54 U/L (46-116); ALT (SGPT) 11 U/L (10-68); BILIRUBIN - TOTAL 0.21 mg/dL (0.2-1.3); CALC OSMOLALITY 285 mosm/kg (275-300); CALCIUM 7.9 mg/dL (8.5-10.1); CARBON DIOXIDE 30.1 mmol/L (21.0-32.0); CHLORIDE - SERUM 98 mmol/L (98-107); CREATININE - SERUM 4.4 mg/dL (0.6-1.3); GLUCOSE 136 mg/dL (74-106); POTASSIUM - SERUM 3.3 mmol/L (3.5-5.1); PROTEIN - SERUM 6.3 g/dL (6.4-8.2); SODIUM 138 mmol/L (136-145); UREA NITROGEN 34 mg/dL (7-18); eGFR NON AFRICAN AMERICAN 14 mL/min (90-120)
[2018-02-25 13:29] LABS: CHOL - HDL RATIO 4.8 ratio (2.3-4.9); CHOLESTEROL, TOTAL 116 mg/dL (0-200); CKMB 1.6 U/L (0.0-3.6); CREATINE KINASE 65 UL (21-232); HDL CHOLESTEROL 24 mg/dL (32-96); LDL CHOLESTEROL 51 mg/dL (0-100); LDL-HDL RATIO 2.1 ratio (1.5-3.5); MAGNESIUM - SERUM 1.7 mg/dL (1.8-2.4); TRIGLYCERIDE 209 mg/dL (30-200); TROPONIN-I 0.045 ng/mL (0.000-0.060)
[2018-02-25 13:34] LABS: PRO BNP 35885 pg/mL (0-125)
[2018-02-25 15:34] LABS: TROPONIN-I 0.036 ng/mL (0.000-0.060)
[2018-02-25] MEDS ORDERED: COZAAR100 MG PO (17:58)
[2018-02-25] MEDS ORDERED: LEVOXYL112 MC1 PO (18:00)
[2018-02-25] MEDS ORDERED: ENTRESTO 24 MG1 EACH PO (18:05)
[2018-02-25] MEDS ORDERED: RENA-VITE TABL0.8 MG PO (18:08)
[2018-02-25 21:54] LABS: HEMOGLOBIN 6.7 g/dL (13.5-17.5)
[2018-02-25 21:55] LABS: HEMATOCRIT 19.8 % (42.0-54.0)
[2018-02-25 22:14] LABS: CKMB 1.5 U/L (0.0-3.6); CREATINE KINASE 58 UL (21-232); TROPONIN-I 0.059 ng/mL (0.000-0.060)
[2018-02-26] VITALS (13 sets, daily range): BP systolic 123–163; BP diastolic 54–88; BMI 31.2
[2018-02-26 03:14] LABS: BASOPHILS 0.3 % (0-2); EOSINOPHILS 3.3 % (0-7); HEMATOCRIT 22.6 % (42.0-54.0); HEMOGLOBIN 7.6 g/dL (13.5-17.5); IMMATURE GRANULOCYTES 0.2 % (0-5); LYMPHOCYTES 27.6 % (15-50); MCH 32.8 pg (26.0-34.0); MCHC 33.6 g/dL (31.0-37.0); MCV 97.4 fL (80.0-100.0); MEAN PLATELET VOLUME 11.1 fL (7.4-10.4); MONOCYTES 7.3 % (2-11); NEUTROPHILS 61.3 % (40-80); PLATELET COUNT 171 10x3/uL (130-400); RBC 2.32 10x6/uL (4.20-6.10); RDW 16.3 % (11.5-14.5); WBC 9.1 10x3/uL (4.8-10.8)
[2018-02-26 03:31] LABS: INR 1.1 (0.85-1.17); PROTIME 13.8 SECONDS (11.6-15.0)
[2018-02-26 03:43] LABS: ALKALINE PHOSPHATASE 55 U/L (46-116); BILIRUBIN - TOTAL 0.28 mg/dL (0.2-1.3); CALCIUM 7.8 mg/dL (8.5-10.1); CHLORIDE - SERUM 98 mmol/L (98-107); CKMB 1.5 U/L (0.0-3.6); CREATINE KINASE 66 UL (21-232); GLUCOSE 106 mg/dL (74-106); PROTEIN - SERUM 6.1 g/dL (6.4-8.2); SODIUM 138 mmol/L (136-145)
[2018-02-26 03:45] LABS: ALT (SGPT) 14 U/L (10-68); CALC OSMOLALITY 289 mosm/kg (275-300); TROPONIN-I 0.083 ng/mL (0.000-0.060); UREA NITROGEN 51 mg/dL (7-18); eGFR NON AFRICAN AMERICAN 10 mL/min (90-120)
[2018-02-26 12:36] LABS: HEMATOCRIT 21.8 % (42.0-54.0); HEMOGLOBIN 7.6 g/dL (13.5-17.5)
[2018-02-26 23:05] LABS: HEMATOCRIT 21.9 % (42.0-54.0); HEMOGLOBIN 7.9 g/dL (13.5-17.5)
[2018-02-27] VITALS (10 sets, daily range): BP systolic 137–177; BP diastolic 65–93
[2018-02-27 04:56] LABS: BASOPHILS 0.2 % (0-2); EOSINOPHILS 4.4 % (0-7); HEMATOCRIT 25.5 % (42.0-54.0); HEMOGLOBIN 8.8 g/dL (13.5-17.5); IMMATURE GRANULOCYTES 0.2 % (0-5); LYMPHOCYTES 21.4 % (15-50); MCH 32.2 pg (26.0-34.0); MCHC 34.5 g/dL (31.0-37.0); MEAN PLATELET VOLUME 10.6 fL (7.4-10.4); NEUTROPHILS 65.8 % (40-80); PLATELET COUNT 168 10x3/uL (130-400); RBC 2.73 10x6/uL (4.20-6.10); RDW 16.4 % (11.5-14.5); WBC 8.1 10x3/uL (4.8-10.8)
[2018-02-27 05:01] LABS: MCV 93.4 fL (80.0-100.0)
[2018-02-27 05:13] LABS: ANION GAP 17.6 mmol/L (8-16); CARBON DIOXIDE 25.6 mmol/L (21.0-32.0); POTASSIUM - SERUM 4.2 mmol/L (3.5-5.1)
[2018-02-27 05:14] LABS: CREATININE - SERUM 8.1 mg/dL (0.6-1.3)
[2018-02-28 06:50] LABS: BASOPHILS 0.1 % (0-2); EOSINOPHILS 3.1 % (0-7); HEMATOCRIT 22.6 % (42.0-54.0); HEMOGLOBIN 7.8 g/dL (13.5-17.5); IMMATURE GRANULOCYTES 0.2 % (0-5); LYMPHOCYTES 7.6 % (15-50); MCH 32.4 pg (26.0-34.0); MCHC 34.5 g/dL (31.0-37.0); MCV 93.8 fL (80.0-100.0); MEAN PLATELET VOLUME 10.2 fL (7.4-10.4); MONOCYTES 7.1 % (2-11); NEUTROPHILS 81.9 % (40-80); PLATELET COUNT 173 10x3/uL (130-400); RBC 2.41 10x6/uL (4.20-6.10); WBC 9.4 10x3/uL (4.8-10.8)
[2018-02-28 07:18] LABS: ALBUMIN 2.8 g/dL (3.4-5.0); BILIRUBIN - TOTAL 0.43 mg/dL (0.2-1.3); CALCIUM 7.9 mg/dL (8.5-10.1); CARBON DIOXIDE 24.7 mmol/L (21.0-32.0); PHOSPHOROUS 4.5 mg/dL (2.5-4.9); POTASSIUM - SERUM 4.7 mmol/L (3.5-5.1); PROTEIN - SERUM 6.3 g/dL (6.4-8.2)
[2018-02-28 07:25] LABS: CREATININE - SERUM 10.3 mg/dL (0.6-1.3)
[2018-02-28 08:53] VITALS: BP 157/96
[2018-02-28 11:45] VITALS: BP 175/89
[2018-02-28 20:00] VITALS: BP 153/80
[2018-03-01] VITALS: BP 147/68
[2018-03-01 04:00] VITALS: BP 140/66
[2018-03-01 05:29] LABS: BASOPHILS 0.2 % (0-2); EOSINOPHILS 3.9 % (0-7); HEMATOCRIT 20.2 % (42.0-54.0); IMMATURE GRANULOCYTES 0.2 % (0-5); LYMPHOCYTES 20.5 % (15-50); MCH 32.4 pg (26.0-34.0); MCHC 35.1 g/dL (31.0-37.0); MCV 92.2 fL (80.0-100.0); MEAN PLATELET VOLUME 11.2 fL (7.4-10.4); MONOCYTES 9.5 % (2-11); NEUTROPHILS 65.7 % (40-80); PLATELET COUNT 180 10x3/uL (130-400); RBC 2.19 10x6/uL (4.20-6.10); RDW 16.7 % (11.5-14.5)
[2018-03-01 05:35] LABS: WBC 6.2 10x3/uL (4.8-10.8)
[2018-03-01 05:37] LABS: HEMOGLOBIN 7.1 g/dL (13.5-17.5)
[2018-03-01 05:48] LABS: ANION GAP 15.3 mmol/L (8-16); CALCIUM 7.5 mg/dL (8.5-10.1); CARBON DIOXIDE 28.3 mmol/L (21.0-32.0); CREATININE - SERUM 8.2 mg/dL (0.6-1.3)
[2018-03-01 05:55] LABS: POTASSIUM - SERUM 3.6 mmol/L (3.5-5.1)
[2018-03-01 07:59] VITALS: BP 125/59
[2018-03-01 08:06] LABS: % SATURATION 22 % (15-55); IRON 35 ug/dl (35-150); TOTAL IRON BIND CAPACITY 157 ug/dl (260-445); UNSAT IRON BIND CAPACITY 122 ug/dl (150-375)
[2018-03-01 08:24] LABS: INR 1.2 (0.85-1.17); PROTIME 14.8 SECONDS (11.6-15.0)
[2018-03-01 11:19] LABS: HEPATITIS C ANTIBODY <0.1 (0.0-0.9)
[2018-03-01 11:48] VITALS: BP 102/49
[2018-03-01 15:46] VITALS: BP 115/53
[2018-03-01 19:29] LABS: HEMATOCRIT 19.4 % (42.0-54.0); HEMOGLOBIN 6.8 g/dL (13.5-17.5)
[2018-03-01 20:28] VITALS: BP 107/56
[2018-03-02 01:30] VITALS: BP 121/65
[2018-03-02 07:44] VITALS: BP 137/81
[2018-03-02 10:15] LABS: HEMATOCRIT 21.3 % (42.0-54.0)
[2018-03-02 10:27] LABS: HEMOGLOBIN 7.3 g/dL (13.5-17.5)
[2018-03-02 19:25] LABS: HEMATOCRIT 24.7 % (42.0-54.0); HEMOGLOBIN 8.4 g/dL (13.5-17.5)
[2018-03-02 20:00] VITALS: BP 128/67
[2018-03-03 00:54] VITALS: BP 135/83
[2018-03-03 04:00] VITALS: BP 151/67
[2018-03-03 06:39] LABS: BASOPHILS 0.2 % (0-2); HEMATOCRIT 26.9 % (42.0-54.0); HEMOGLOBIN 9.2 g/dL (13.5-17.5); IMMATURE GRANULOCYTES 0.2 % (0-5); LYMPHOCYTES 13.8 % (15-50); MCH 30.6 pg (26.0-34.0); MCHC 34.2 g/dL (31.0-37.0); MCV 89.4 fL (80.0-100.0); MEAN PLATELET VOLUME 10.3 fL (7.4-10.4); MONOCYTES 10.6 % (2-11); NEUTROPHILS 70.2 % (40-80); RBC 3.01 10x6/uL (4.20-6.10); RDW 17.6 % (11.5-14.5); WBC 6.2 10x3/uL (4.8-10.8)
[2018-03-03 06:49] LABS: ANION GAP 14.7 mmol/L (8-16); CALCIUM 8.1 mg/dL (8.5-10.1); CARBON DIOXIDE 28.4 mmol/L (21.0-32.0); CREATININE - SERUM 7.6 mg/dL (0.6-1.3); PHOSPHOROUS 4.8 mg/dL (2.5-4.9); POTASSIUM - SERUM 4.1 mmol/L (3.5-5.1)
[2018-03-03 06:54] LABS: PLATELET COUNT 127 10x3/uL (130-400)
[2018-03-03 08:59] VITALS: BP 171/82
[2018-03-03 12:13] VITALS: BP 179/99
[2018-03-03 14:31] LABS: HEMATOCRIT 25.8 % (42.0-54.0); HEMOGLOBIN 8.7 g/dL (13.5-17.5)
[2018-03-03 15:43] VITALS: BP 156/68
[2018-03-03 21:08] VITALS: BP 156/98
[2018-03-03 22:49] LABS: HEMATOCRIT 25.1 % (42.0-54.0); HEMOGLOBIN 8.7 g/dL (13.5-17.5)
[2018-03-04 01:39] VITALS: BP 141/86
[2018-03-04 05:49] LABS: BASOPHILS 0.3 % (0-2); EOSINOPHILS 5.7 % (0-7); HEMATOCRIT 26.9 % (42.0-54.0); IMMATURE GRANULOCYTES 0.1 % (0-5); LYMPHOCYTES 13.6 % (15-50); MCH 30.2 pg (26.0-34.0); MCHC 33.5 g/dL (31.0-37.0); MCV 90.3 fL (80.0-100.0); MEAN PLATELET VOLUME 11.3 fL (7.4-10.4); MONOCYTES 8.9 % (2-11); NEUTROPHILS 71.4 % (40-80); PLATELET COUNT 150 10x3/uL (130-400); RBC 2.98 10x6/uL (4.20-6.10); RDW 17.1 % (11.5-14.5)
[2018-03-04 06:09] LABS: ANION GAP 19.7 mmol/L (8-16); CALCIUM 8.1 mg/dL (8.5-10.1); CARBON DIOXIDE 23.8 mmol/L (21.0-32.0); PHOSPHOROUS 5.4 mg/dL (2.5-4.9); POTASSIUM - SERUM 4.5 mmol/L (3.5-5.1)
[2018-03-04 06:14] VITALS: BP 125/83
[2018-03-04 08:51] VITALS: BP 173/99
[2018-03-04 16:22] VITALS: BP 150/53
[2018-03-04 22:02] VITALS: BP 160/85
[2018-03-05 01:02] VITALS: BP 157/89
[2018-03-05 05:39] VITALS: BP 164/96
[2018-03-05 07:03] LABS: BASOPHILS 0.2 % (0-2); EOSINOPHILS 5.1 % (0-7); HEMATOCRIT 24.9 % (42.0-54.0); HEMOGLOBIN 8.5 g/dL (13.5-17.5); IMMATURE GRANULOCYTES 0.2 % (0-5); LYMPHOCYTES 14.7 % (15-50); MCH 30.6 pg (26.0-34.0); MCHC 34.1 g/dL (31.0-37.0); MCV 89.6 fL (80.0-100.0); MEAN PLATELET VOLUME 11.4 fL (7.4-10.4); MONOCYTES 10.1 % (2-11); NEUTROPHILS 69.7 % (40-80); PLATELET COUNT 128 10x3/uL (130-400); RBC 2.78 10x6/uL (4.20-6.10); RDW 16.9 % (11.5-14.5); WBC 6.5 10x3/uL (4.8-10.8)
[2018-03-05 07:39] LABS: ANION GAP 21.6 mmol/L (8-16); CARBON DIOXIDE 21.7 mmol/L (21.0-32.0); CREATININE - SERUM 11.1 mg/dL (0.6-1.3); POTASSIUM - SERUM 4.3 mmol/L (3.5-5.1)
[2018-03-05 08:13] VITALS: BP 156/81
[2018-03-05 12:46] VITALS: BP 152/75
[2018-03-05 21:25] VITALS: BP 155/83
[2018-03-06 01:43] VITALS: BP 143/80
[2018-03-06 05:38] VITALS: BP 139/75
[2018-03-06 06:58] LABS: BASOPHILS 0.3 % (0-2); EOSINOPHILS 4.8 % (0-7); HEMATOCRIT 20.8 % (42.0-54.0); IMMATURE GRANULOCYTES 0.3 % (0-5); LYMPHOCYTES 14.2 % (15-50); MCH 30.9 pg (26.0-34.0); MCHC 34.1 g/dL (31.0-37.0); MCV 90.4 fL (80.0-100.0); MEAN PLATELET VOLUME 11.1 fL (7.4-10.4); MONOCYTES 7.6 % (2-11); NEUTROPHILS 72.8 % (40-80); PLATELET COUNT 134 10x3/uL (130-400); RDW 17.2 % (11.5-14.5); WBC 6.8 10x3/uL (4.8-10.8)
[2018-03-06 07:09] LABS: HEMOGLOBIN 7.1 g/dL (13.5-17.5)
[2018-03-06 07:24] LABS: ANION GAP 22.2 mmol/L (8-16); CARBON DIOXIDE 21.7 mmol/L (21.0-32.0); POTASSIUM - SERUM 4.9 mmol/L (3.5-5.1)
[2018-03-06 08:45] VITALS: BP 157/87
[2018-03-06 12:41] VITALS: BP 142/80
[2018-03-06 16:00] VITALS: BP 162/84
[2018-03-06 20:30] VITALS: BP 169/90
[2018-03-07 00:30] VITALS: BP 175/90
[2018-03-07 04:30] VITALS: BP 171/82
[2018-03-07 06:13] LABS: BASOPHILS 0.3 % (0-2); EOSINOPHILS 3.5 % (0-7); HEMATOCRIT 23.7 % (42.0-54.0); HEMOGLOBIN 8.1 g/dL (13.5-17.5); IMMATURE GRANULOCYTES 0.1 % (0-5); LYMPHOCYTES 14.5 % (15-50); MCH 30.2 pg (26.0-34.0); MCHC 34.2 g/dL (31.0-37.0); MEAN PLATELET VOLUME 11.7 fL (7.4-10.4); MONOCYTES 11.1 % (2-11); NEUTROPHILS 70.5 % (40-80); PLATELET COUNT 155 10x3/uL (130-400); RBC 2.68 10x6/uL (4.20-6.10); RDW 17.1 % (11.5-14.5); WBC 7.9 10x3/uL (4.8-10.8)
[2018-03-07 06:16] LABS: MCV 88.4 fL (80.0-100.0)
[2018-03-07 06:48] LABS: CALCIUM 8.1 mg/dL (8.5-10.1); CARBON DIOXIDE 24.5 mmol/L (21.0-32.0); POTASSIUM - SERUM 4.5 mmol/L (3.5-5.1)
[2018-03-07 07:59] VITALS: BP 165/84
[2018-03-07 11:38] VITALS: Ht 193 cm; Wt 114.5 kg
[2018-03-07 15:32] VITALS: BP 145/75
[2018-03-07 20:00] VITALS: BP 137/82
[2018-03-08 04:00] VITALS: BP 167/92
[2018-03-08 04:25] LABS: BASOPHILS 0.2 % (0-2); EOSINOPHILS 4.5 % (0-7); HEMATOCRIT 22.8 % (42.0-54.0); HEMOGLOBIN 7.7 g/dL (13.5-17.5); IMMATURE GRANULOCYTES 0.2 % (0-5); MCH 30.3 pg (26.0-34.0); MCHC 33.8 g/dL (31.0-37.0); MCV 89.8 fL (80.0-100.0); MEAN PLATELET VOLUME 11.2 fL (7.4-10.4); MONOCYTES 9.9 % (2-11); NEUTROPHILS 63.2 % (40-80); PLATELET COUNT 144 10x3/uL (130-400); RBC 2.54 10x6/uL (4.20-6.10); RDW 17.2 % (11.5-14.5); WBC 6.3 10x3/uL (4.8-10.8)
[2018-03-08 04:40] LABS: ANION GAP 21.8 mmol/L (8-16); CALCIUM 7.6 mg/dL (8.5-10.1); CARBON DIOXIDE 23.9 mmol/L (21.0-32.0); CREATININE - SERUM 12.9 mg/dL (0.6-1.3); PHOSPHOROUS 5.7 mg/dL (2.5-4.9); POTASSIUM - SERUM 4.7 mmol/L (3.5-5.1)
[2018-03-08 08:08] VITALS: BP 164/86
[2018-03-08 15:18] VITALS: BP 138/79
[2018-03-08 16:10] LABS: HEMATOCRIT 23.6 % (42.0-54.0); HEMOGLOBIN 8.1 g/dL (13.5-17.5)
[2018-03-08 21:05] VITALS: BP 159/82
[2018-03-09 00:45] LABS: HEMATOCRIT 23.5 % (42.0-54.0); HEMOGLOBIN 7.9 g/dL (13.5-17.5)
[2018-03-09 04:00] VITALS: BP 155/85
[2018-03-09] MEDS ORDERED: PEPCID40 MG PO (07:28)
[2018-03-09] MEDS ORDERED: CARAFATE1 G PO (07:31)
[2018-03-09] MEDS ORDERED: PHOSLO667 MG PO (07:32)
[2018-03-09 07:51] VITALS: BP 189/90
== END 2018-03-09 09:41 | disposition home or self-care (01) | DRG 377 ==
LOC: D.ER 12:31 → D.M2 14:14 → D.SDCHOLD 03-01 16:28 → D.M2 03-01 16:28
PROVIDERS: Emergency Medicine; Family Medicine; Internal Medicine; Internal Medicine Gastroenterology; Internal Medicine Nephrology
PROC: 3E0G8GC Introduction of Other Therapeutic Substance into Upper GI, Via Natural or Artificial Opening Endoscopic (ICD-10-PCS; 2018-02-26)
PROC: 3E0G8TZ Introduction of Destructive Agent into Upper GI, Via Natural or Artificial Opening Endoscopic (ICD-10-PCS; 2018-02-26)
PROC: 0W3P8ZZ Control Bleeding in Gastrointestinal Tract, Via Natural or Artificial Opening Endoscopic (ICD-10-PCS; principal; 2018-02-26 08:30)
PROC: 0W3P8ZZ Control Bleeding in Gastrointestinal Tract, Via Natural or Artificial Opening Endoscopic (ICD-10-PCS; 2018-03-02)
PROC: 3E0G8GC Introduction of Other Therapeutic Substance into Upper GI, Via Natural or Artificial Opening Endoscopic (ICD-10-PCS; 2018-03-02)
PROC: 3E0G8TZ Introduction of Destructive Agent into Upper GI, Via Natural or Artificial Opening Endoscopic (ICD-10-PCS; 2018-03-02)
PROC: 3E0G8TZ Introduction of Destructive Agent into Upper GI, Via Natural or Artificial Opening Endoscopic (ICD-10-PCS; 2018-03-02)
PROC: 3E0G8GC Introduction of Other Therapeutic Substance into Upper GI, Via Natural or Artificial Opening Endoscopic (ICD-10-PCS; 2018-03-06)
PROC: 0W3P8ZZ Control Bleeding in Gastrointestinal Tract, Via Natural or Artificial Opening Endoscopic (ICD-10-PCS; 2018-03-06)
PROC: 3E0G8TZ Introduction of Destructive Agent into Upper GI, Via Natural or Artificial Opening Endoscopic (ICD-10-PCS; 2018-03-06)
DX: K31.82 Dieulafoy lesion (hemorrhagic) of stomach and duodenum (principal); N18.6 End stage renal disease; I50.23 Acute on chronic systolic (congestive) heart failure; D62 Acute posthemorrhagic anemia; I13.2 Hypertensive heart and chronic kidney disease with heart failure and with stage 5 chronic kidney disease, or end stage renal disease; I69.954 Hemiplegia and hemiparesis following unspecified cerebrovascular disease affecting left non-dominant side; K44.9 Diaphragmatic hernia without obstruction or gangrene; K22.70 Barrett's esophagus without dysplasia; K29.70 Gastritis, unspecified, without bleeding; K29.80 Duodenitis without bleeding; K57.90 Diverticulosis of intestine, part unspecified, without perforation or abscess without bleeding; D63.1 Anemia in chronic kidney disease; E03.9 Hypothyroidism, unspecified; Z99.2 Dependence on renal dialysis; J44.9 Chronic obstructive pulmonary disease, unspecified; E78.5 Hyperlipidemia, unspecified; I25.10 Atherosclerotic heart disease of native coronary artery without angina pectoris; Z86.010 Personal history of colon polyps; Z95.5 Presence of coronary angioplasty implant and graft

== ENCOUNTER 2018-03-16 10:25 | Outpatient (CLI) | payer MEDICARE, BC, MEDICAID ==
[~2018-03-16] VITALS: Ht 193 cm; Wt 113.6 kg
[~2018-03-16 10:25] MED LIST changes: +CARAFATE1 G PO; +ENTRESTO 24 MG1 EACH PO; +LEVOXYL112 MC1 PO; +PEPCID40 MG PO; +PHOSLO667 MG PO; +RENA-VITE TABL0.8 MG PO
[2018-03-16 13:51] VITALS: BP 147/74; Ht 193 cm; Wt 113.6 kg
== END 2018-03-16 16:20 | disposition home or self-care (01) ==
LOC: D.OPS 10:25 → D.LABREF 10:25 → D.OPS 16:20
DX: D64.9 Anemia, unspecified (principal)

== ENCOUNTER 2018-03-21 11:17 | Day surgery (SDC) | payer MEDICARE, BC, MEDICAID ==
[~2018-03-21] VITALS: Ht 193 cm; Wt 113.6 kg
[2018-03-21 12:36] LABS: BASOPHILS 0.4 % (0-2); EOSINOPHILS 5.6 % (0-7); HEMATOCRIT 24.1 % (42.0-54.0); HEMOGLOBIN 7.8 g/dL (13.5-17.5); LYMPHOCYTES 24.9 % (15-50); MCH 31.8 pg (26.0-34.0); MCHC 32.4 g/dL (31.0-37.0); MCV 98.4 fL (80.0-100.0); MEAN PLATELET VOLUME 11.1 fL (7.4-10.4); MONOCYTES 8.3 % (2-11); NEUTROPHILS 60.8 % (40-80); PLATELET COUNT 160 10x3/uL (130-400); RBC 2.45 10x6/uL (4.20-6.10); WBC 5.3 10x3/uL (4.8-10.8)
[2018-03-21 12:45] LABS: ANION GAP 9.3 mmol/L (8-16); CALCIUM 7.8 mg/dL (8.5-10.1); CARBON DIOXIDE 33.1 mmol/L (21.0-32.0); CREATININE - SERUM 4.8 mg/dL (0.6-1.3); POTASSIUM - SERUM 3.4 mmol/L (3.5-5.1)
[2018-03-21 12:54] LABS: INR 1.13 (0.85-1.17); PROTIME 14.1 SECONDS (11.6-15.0)
[2018-03-21] MEDS ORDERED: PLAVIX75 MG PO (13:13)
[2018-03-21] MEDS ORDERED: BAYER CHEWABLE81 MG PO (13:14)
[2018-03-21 13:21] VITALS: BP 148/81; Ht 193 cm; Wt 113.6 kg
== END 2018-03-21 17:38 | disposition home or self-care (01) ==
LOC: D.OPS 11:17
PROVIDERS: Anesthesiology
DX: D50.0 Iron deficiency anemia secondary to blood loss (chronic) (principal); K92.1 Melena; K31.9 Disease of stomach and duodenum, unspecified; I25.10 Atherosclerotic heart disease of native coronary artery without angina pectoris; I12.0 Hypertensive chronic kidney disease with stage 5 chronic kidney disease or end stage renal disease; E11.22 Type 2 diabetes mellitus with diabetic chronic kidney disease; N18.6 End stage renal disease; Z01.812 Encounter for preprocedural laboratory examination

== ENCOUNTER 2018-03-28 05:55 | Inpatient (IN) | payer MEDICARE, BC, MEDICAID ==
[~2018-03-28] VITALS: Ht 193 cm; Wt 108.8 kg
[2018-03-28] VITALS (15 sets, daily range): BP systolic 153–179; BP diastolic 82–116
--- NOTE | ~2018-03-28 | OP ---
PATIENT NAME: LEO LEUNG MEDICAL RECORD: [id number] :52 LOCATION:[facility] D.2310 ADMISSION DATE:03/28/18 SURGEON: SPEEDY LLAMAS MD DATE OF OPERATION: 04/05/2018 PREOPERATIVE DIAGNOSIS: Bleeding Dieulafoy's lesion. POSTOPERATIVE DIAGNOSIS: Bleeding Dieulafoy's lesion. PROCEDURE: Please see Dr. Vergara's note. This includes exploratory laparotomy, gastrotomy with oversewing of the Dieulafoy's lesion. This is an classroom assistant's note. I assisted Dr. Vergara with the procedure. DESCRIPTION OF PROCEDURE: I entered the operating theater once the laparotomy incision had been made and Dr. Vergara was taking down some of the lesser omental vessels. My portion of the operation included some dissection with the suction device as well as with my hand, retraction of tissues, application of clips. Some blunt mobilization of the EG junction. Tying down the sutures, some assistance was performance with the gastrotomy. Retraction of the stomach while Dr. Vergara oversewed the lesions internally. Assistance with placement of the TA 60 stapling device. I then scrubbed out as Dr. Vergara was closing the laparotomy incision. TRANSINT:[id number] Voice Confirmation ID: [id number] DOCUMENT ID: [id number] SPEEDY LLAMAS MD at 1840 CC: WILBERT VERGARA and HECTOR GAVIRIA [id number] DICTATION DATE: 04/05/18 1609 MUSCULOSKELETAL PHYSICIAN: 04/05/18 2103 ADM IN [facility] [address] [place] [address]
--- NOTE | ~2018-03-28 | HEMODYNAMI ---
PATIENT:LEO LEUNG MEDICAL RECORD: [id number] : 52 LOCATION:[facility] D.E09[facility]# [id number] ADMISSION DATE: 03/28/18 Generatedon:03/29/201812:06 Patient name: LEO LEUNG Patient #: [id number] SSN: : Date of study: 03/29/2018 Page: Of Hemodynamic Procedure Report Patient Data Patient Demographics Procedure consent was obtained First Name: LEO Gender: Male Last Name: XOCHITL : 1950 [facility] Initial: D Age: 67 year(s) Patient #: [id number] Race: Additional ID: [id number] Contact details Address: [address] [place] [address] State: [place] City: [place] Zip code: [facility] Past Medical History Allergies Allergen Reaction Date Comments Reported Other allergy 12/24/2015 ultram Other allergy 07/04/2016 Tramadol Admission Admission Data Admission Date: 03/28/2018 Admission Time: 8:21 Room #: D.E09 Height (in.): 76 BSA: 2.44 (m2) Height (cm.): 193.04 BMI: 30.43 (kg/m2) Weight (lbs.): 250 Weight (kg.): 113.4 Procedure Procedure Types Cath Procedure Peripheral Cath Diagnostic Procedure Cath Peripheral Abd/Extremity Visceral/Mesenteric Mesenteric Arteriogram (Abd Artery) Procedure Description Procedure Date Procedure Date: 03/29/2018 Procedure Start Time: 9:32 Procedure Staff Name Function Feng Hook MD Performing Physician Audrey Rangel RT Quality Assurance Supervisor Chassis Mariangel Casas RN Nurse José Luis Huerta RT Scrub Procedure Data Cath Procedure Fluoroscopy Diagnostic fluoroscopy Total fluoroscopy Time: 34 time: 34 min min Diagnostic fluoroscopy Total fluoroscopy dose: dose: 7338 mGy 7338 mGy Contrast Material Contrast Material Type Amount (ml) Isovue 300 183 Diagnostic catheters Device Type Used For End Catheter Placement Merit Impress 5Fr SIM 1 Catheter ([id number]) Angiodynamics SOS OMNI 2 NON B 5FR 65CM catheter ([id number]) Merit ULTRA BOLUS FLUSH 5Fr 65CM catheter ([id number]) Procedure Medications Medication Administration Route Dosage Fentanyl I.V. 50 mcg Versed I.V. 1 mg Heparin Flush Bag added to field 3 bags (1000units/500ml NS) Lidocaine 1% added to field 20 Versed I.V. 1 mg Fentanyl I.V. 50 mcg Fentanyl I.V. 50 mcg Hemodynamics Rest BSA: 2.44 (m2) O2 Consumption: Estimated: 286.55 (ml/min) O2 Consumption indexed : Estimated:117.44 (ml/min/m) Heart Rate: 73 (bpm) Snapshots Pre Cath Intra NCS Post Cath Vital Signs Time Heart Resp SPO2 etCO2 NIBP (mmHg) Rhythm Pain Sedation Rate (ipm) (%) (mmHg) Status Level (bpm) 8:39:55 73 15 99 10.5 Measuring NSR 0 (11) 10(A) , No pain 8:41:13 73 21 100 19.5 209/127(183) NSR 0 (11) 10(A) , No pain 8:46:12 72 13 100 9.7 214/125(184) NSR 0 (11) 10(A) , No pain 8:51:11 72 17 100 24.7 200/124(180) NSR 0 (11) 10(A) , No pain 8:55:56 72 16 98 0 Aborted NSR 0 (11) 10(A) , No pain 8:59:47 72 20 98 0 Aborted NSR 0 (11) 10(A) , No pain 9:03:28 72 16 99 26.2 Aborted NSR 0 (11) 10(A) , No pain 9:07:28 72 18 99 24.7 No Cuff NSR 0 (11) 10(A) , No pain 9:11:27 70 17 99 24.7 No Cuff NSR 0 (11) 10(A) , No pain 9:15:07 71 17 99 24 Aborted NSR 0 (11) 10(A) , No pain 9:19:00 71 20 99 25.5 Aborted NSR 0 (11) 10(A) , No pain 9:22:31 71 17 99 21.7 Aborted NSR 0 (11) 10(A) , No pain 9:26:31 72 17 99 24 No Cuff NSR 0 (11) 10(A) , No pain 9:30:02 72 22 99 24.7 Aborted NSR 0 (11) 10(A) , No pain 9:32:17 71 17 98 24.7 204/115(150) NSR 0 (11) 10(A) , No pain 9:36:43 73 18 96 24 195/114(163) NSR 0 (11) 10(A) , No pain 9:41:05 69 17 98 24 191/113(139) NSR 0 (11) 10(A) , No pain 9:46:05 71 15 97 0 Measuring NSR 0 (11) 10(A) , No pain 9:46:25 71 17 97 24 186/109(154) NSR 0 (11) 10(A) , No pain 9:50:45 70 15 98 0 190/99(158) NSR 0 (11) 8(A) , No pain 9:55:07 71 16 97 6 190/104(153) NSR 0 (11) 8(A) , No pain 9:59:29 69 13 99 19.5 187/94(167) NSR 0 (11) 8(A) , No pain 10:03:50 69 17 98 23.2 184/99(145) NSR 0 (11) 8(A) , No pain 10:08:08 71 18 97 20.2 180/112(152) NSR 0 (11) 8(A) , No pain 10:12:26 69 19 98 15 186/111(142) NSR 0 (11) 8(A) , No pain 10:16:46 67 14 99 12.7 183/110(154) NSR 0 (11) 8(A) , No pain 10:21:06 69 16 98 9.7 192/101(160) NSR 0 (11) 8(A) , No pain 10:25:28 69 17 96 0 191/95(150) NSR 0 (11) 8(A) , No pain 10:29:48 68 16 98 0 187/108(159) NSR 0 (11) 8(A) , No pain 10:34:11 65 12 98 0 189/92(163) NSR 0 (11) 8(A) , No pain 10:38:30 69 17 98 23.2 183/101(152) NSR 0 (11) 8(A) , No pain 10:42:49 66 17 98 24 184/109(155) NSR 0 (11) 8(A) , No pain 10:47:07 67 11 98 24.7 191/105(164) NSR 0 (11) 8(A) , No pain 10:51:29 66 17 96 24 180/114(147) NSR 0 (11) 8(A) , No pain 10:55:45 70 18 97 20.2 184/109(153) NSR 0 (11) 8(A) , No pain 11:00:05 67 18 98 21.7 179/106(142) NSR 0 (11) 8(A) , No pain 11:04:21 64 18 99 18.7 182/102(161) NSR 0 (11) 8(A) , No pain 11:08:39 66 16 99 24 187/104(157) NSR 0 (11) 8(A) , No pain 11:12:53 67 20 98 31.5 187/108(162) NSR 0 (11) 8(A) , No pain 11:17:13 65 12 100 0 182/106(140) NSR 0 (11) 8(A) , No pain 11:21:31 68 17 99 25.5 192/118(144) NSR 0 (11) 8(A) , No pain 11:25:54 68 17 98 3.7 190/104(145) NSR 0 (11) 8(A) , No pain 11:30:16 68 15 97 23.2 191/106(153) NSR 0 (11) 8(A) , No pain 11:34:38 70 18 94 20.2 187/110(155) NSR 0 (11) 8(A) , No pain 11:38:58 67 11 100 24.7 199/107(140) NSR 0 (11) 8(A) , No pain 11:43:22 68 17 98 0 193/109(164) NSR 0 (11) 8(A) , No pain 11:47:44 69 21 97 20.2 190/115(162) NSR 0 (11) 8(A) , No pain 11:52:05 69 2 0 192/110(158) NSR 0 (11) 8(A) , No pain 11:56:04 0 No Cuff NSR 0 (11) 8(A) , No pain Medications Time Medication Route Dose Verified Delivered Reason Notes Effec tiveness by by 9:32:37 Lidocaine 1% added 20ml Feng Toney used for to vial Monster Hook procedure field MD CASTELLON 9:33:31 Fentanyl I.V. 50 Feng August for mcg Monster Casas RN sedation 9:33:42 Versed I.V. 1 mg Feng August for Monster Casas RN sedation 9:37:24 Heparin Flush added 3 Feng Toney used for Bag to bags Monster Hook procedure (1000units/500ml field MD CASTELLON NS) 9:48:02 Versed I.V. 1 mg Feng Toney for Monster Hook sedation MD CASTELLON 9:48:09 Fentanyl I.V. 50 Feng Toney for mcg Monster Hook sedation MD CASTELLON 10:54:39 Fentanyl I.V. 50 Feng Toney for mcg Monster Hook sedation MD CASTELLON Procedure Log Time Note 8:16:59 Patient Height : 76 inches 8:17:04 Patient Weight : 250 lbs 8:17:31 Use device set IR Diagnostic 8:18:34 TUBING Contrast Injection High Pressure ([id number]) opened to sterile field. 8:18:35 SHEATH 5FR [place] (KTG080) opened to sterile field. 8:18:36 BENTSON 145cm wire (O91163) opened to sterile field. 8:18:37 Micropuncture VSI 4FR kit opened to sterile field. 8:18:38 Tegaderm 4 x 4 (1626W) opened to sterile field. 8:18:39 Sterile Angiographic Pack opened to sterile field. 8:18:40 Bag Decanter (2001S) opened to sterile field. 8:18:41 ACIST Manifold (18524) opened to sterile field. 8:18:42 ACIST Hand Control (67666) opened to sterile field. 8:18:43 ACIST Syringe (72637) opened to sterile field. 8:18:53 - 8:25:51 Time tracking: Regular hours (M-F 7:00 - 5:00) 8:26:06 Plan of Care:Hemodynamics will remain stable., Cardiac rhythm will remain stable., Comfort level will be maintained., Respiratory function will remain adequate., Patient/ family verbilizes understanding of procedure., Procedure tolerated without complication., Recovers from procedure without complications.. 8:26:17 Patient received from ED to IR Alert and oriented. Tansferred to table in Supine position. 8:26:19 Correct patient and procedure confirmed by team. 8:26:21 Signed procedure consent form obtained from patient. 8:26:26 H&P Date Dictated: 03/29/2018 Within 30 days and on chart.. 8:26:28 Pre-procedure instructions explained to patient. 8:26:29 Pre-op teaching completed and patient verbalized understanding. 8:26:32 Family unavailable. 8:26:35 Patient NPO since Midnight. 8:27:09 patient allergies: Ultram 8:27:13 Is the patient allergic to Iodine/contrast media? No. 8:27:17 Is patient on blood thinner?Yes, but has been off of plavix and asa for 1 month 8:27:45 Patient diabetic? No. 8:27:47 - 8:27:50 ----Pre-sedation anethsthesia assessment.---- 8:27:53 Previous problem with sedation/anesthesia? No ? 8:27:55 Snore? Yes 8:27:57 Sleep apnea? No 8:27:59 Deviated septum? No 8:28:01 Opens mouth fully? Yes 8:28:03 Sticks out tongue? Yes 8:28:10 Airway obstruction? Yes copd 8:28:16 Dentures? Yes ? 8:28:49 IV patent on arrival in right wrist with D5/.45%NaCl at KVO. 8:28:57 Right groin area was prepped with chlora-prep and draped in sterile fashion 8:28:59 - 8:38:04 ECG and BP/O2 sat monitors applied to patient. 8:38:05 Vital chart was started 8:38:07 Baseline sample Acquired. 8:38:08 Full Disclosure recording started 8:38:11 - 8:38:31 A LearnBIG 5Fr SIM 1 Catheter ([id number]) was advanced over the wire and used for . 9:30:11 Physician arrived 9:30:20 --------ALL STOP TIME OUT------ 9:30:21 Final Timeout: patient, procedure, and site verified with staff and physician. All members of the team are in agreement. 9:31:38 Procedure started. 9:32:37 Lidocaine 1% 20ml vial added to field was administered by Feng bill MD; used for procedure; 9:32:55 Local anesthetic to right femoral artery with Lidocaine 1% by Feng Hook MD.INITIAL ACCESS ONLY 9:33:29 Arterial access obtained using ultrasound guidance. 9:33:31 Fentanyl 50 mcg I.V. was administered by Mariangel Casas RN; for sedation ; 9:33:42 Versed 1 mg I.V. was administered by Mariangel Casas RN; for sedation; 9:37:24 Heparin Flush Bag (1000units/500ml NS) 3 bags added to field was administered by Feng Hook MD; used for procedure; 9:43:38 A Angiodynamics SOS OMNI 2 NON B 5FR 65CM catheter ([id number]) was advanced over the wire and used for . 9:46:29 A GdeSlon ULTRA BOLUS FLUSH 5Fr 65CM catheter ([id number]) was advanced over the wire and used for . 9:48:02 Versed 1 mg I.V. was administered by Feng Hook MD; for sedation; 9:48:09 Fentanyl 50 mcg I.V. was administered by Feng Hook MD; for sedation; 9:48:47 Angiography was performed. 9:52:59 TORQUE DEVICE PLASTIC .038 ( TD01) opened to sterile field. 9:53:00 GLIDE WIRE ANGLE 180cm (AN7101) opened to sterile field. 9:55:44 BENTSON 260 wire (K53008) opened to sterile field. 9:59:05 INFLATOR BasixTOUCH (XE4137) opened to sterile field. 9:59:37 Inflate balloon Inflation number: 1 A Evercross 4 x 2 x 135 Balloon ([id number]) was prepped and advanced across the Undefined1, then inflated 10:23:25 RENEGADE HI-REYNOLD microcatheter ([id number]) opened to sterile field. 10:23:26 TRANSEND STEERABLE wire ([id number]) opened to sterile field. 10:23:27 COPILOT Valve Control (7218009) opened to sterile field. 10:44:27 GLIDE WIRE GT DOUBLE ANGLE .018 ([id number]) opened to sterile field. 10:54:39 Fentanyl 50 mcg I.V. was administered by Feng Hook MD; for sedation; 11:05:02 EXOSEAL 5Fr (EX500) opened to sterile field. 11:06:14 Procedure ended.(Physican Out) 11:10:17 Fluoroscopy time 34.00 minutes. 11:10:24 Fluoroscopy dose: 7338 mGy 11:10:24 Flurop Dose total: 7338 11:10:31 Contrast amount:Isovue 300 183ml. 11:10:33 Procedure and supply charges have been captured, reviewed, submitted an d are correct. 11:12:59 Report given to ED. 11:55:34 Vital chart was stopped 12:02:09 End room use (Document Last) 12:02:26 Patient transfered to Other with Stretcher. Intervention Summary Intervention Notes Time ActionType Lesion and Equipment Used Action# Pressure Duration Attributes 9:59:37 Inflate Undefined1 Evercross 4 x 2 1 0 00:00 balloon x 135 Balloon ([id number]) Device Usage Item Name Manufacture Quantity Catalog Number Hospital Part Current Minimal Lot# / Charge Number Stock Stock Serial# Code TUBING Contrast [facility] Medical 1 [id number] 346668 227074 5 Injection High Pressure ([id number]) SHEATH 5FR Terumo 1 HAU829 190472 001918 178304 40 [place] (CVK828) BENTSON 145cm Cook Medical 1 S62552 587529 814414 5 1770305 wire (O92444) Micropuncture VSI VASCULAR 1 7266V 645784 889263 5 VSI 4FR kit SOLUTIONS Tegaderm 4 x 4 3M 1 1626W 234484 233691 833613 5 (1626W) Sterile Cardinal 1 [id number] 924921 833177 5 Angiographic Health Pack Bag Decanter Microtek 1 2001S 797556 99265 448313 5 (2002S) Medical Inc. ACIST Manifold Acist Medical 1 88053 867557 549522 185401 5 (71422) Systems Inc ACIST Hand Acist Medical 1 13068 269355 037300 443271 5 Control (19699) Systems Inc ACIST Syringe Acist Medical 1 79531 720021 692612 844998 20 (10979) Systems Inc Merit Impress [facility] Medical 1 [id number] 039911 176042 694394 5 5Fr SIM 1 Catheter ([id number]) Angiodynamics Angiodynamics 1 [id number] 689425 25161 592744 5 SOS OMNI 2 NON B 5FR 65CM catheter (17278570) Merit ULTRA [facility] Medical 1 [id number] 040577 382064 5 BOLUS FLUSH 5Fr 65CM catheter ([id number]) TORQUE DEVICE [place] 1 TD01 475154 816279 386661 5 PLASTIC .038 ( Scientific TD01) GLIDE WIRE Terumo 1 FM6228 193206 606682 413731 5 ANGLE 180cm (KQ6616) BENTSON 260 Cook Medical 1 D95795 984914 572792 855665 5 wire (F56094) INFLATOR Merit Medical 1 RS6923 888039 234045 988863 5 BasixTOUCH (OS5658) Evercross 4 x 2 Medtronic 1 [id number] 368386 361843 558137 5 x 135 Balloon ([id number]) RENEGADE HI-REYNOLD [place]ensley 1 [id number] 025130 661029 5 microcatheter Scientific ([id number]) TRANSEND Hensley 1 [id number] 848817 330731 5 STEERABLE wire Scientific ([id number]) COPILOT Valve Briceno 1 4514946 225086 060795 881640 5 Control Vascular (4705124) GLIDE WIRE GT Terumo 1 [id number] 137620 892574 5 DOUBLE ANGLE .018 (RG*[id number]) EXOSEAL 5Fr Cardinal 1 EX500 596022 774791 325810 10 [id number] (EX500) Health Signature Audit [place] [facility] Time Signature Unsigned Intra-Procedure 03/29/2018 Audrey Rangel 12:06:04 PM RT(R) [facility] [address] [place] [address]
--- NOTE | ~2018-03-28 | OP ---
PATIENT NAME: LEO PEREZ MEDICAL RECORD: [id number] :52 LOCATION:D.M2 D.2111 ADMISSION DATE:03/28/18 SURGEON: WILBERT VERGARA MD DATE OF OPERATION: 04/05/2018 REFERRING PHYSICIAN: Speedy Natarajan MD PREOPERATIVE DIAGNOSIS: Chronic upper GI bleeding due to benign Dieulafoy vascular malformation in the gastric cardia. ADDITIONAL DIAGNOSES: End-stage renal disease, on chronic hemodialysis. Also hypertension, coronary artery disease, diabetes. POSTOPERATIVE DIAGNOSIS: Chronic upper GI bleeding due to benign Dieulafoy vascular malformation in the gastric cardia. OPERATIONS PERFORMED: EGD without biopsy followed by an open laparotomy with mobilization of the upper half of the stomach, gastric body, fundus, cardia, GE junction, and distal esophagus with open gastrotomy and oversewing of Dieulafoy lesion at the same time as removal of endoscopic clips placed by GI previously to stop bleeding. Also insertion of an 18-Pashto Leonela gastrostomy tube. SURGEON: Wilbert Vergara MD ANESTHESIA: General endotracheal per Dr. Rai and associated CRNAs. PREOPERATIVE NOTE: Mr. Perez is a 67-year-old white male patient well known to me from previous dialysis access procedures. He has now a problem with chronic upper GI bleeding and has required range of 20 or more units of blood in the last month. He has been shown to have benign Dieulafoy-type arterial malformations in the submucosa and the cardia of the stomach, very close to the GE junction. Attempts to stop the bleeding endoscopically have been unsuccessful. Interventional radiology was unable to visualize the lesion, so the patient has been referred for surgery. In the past, the optimal treatment for these lesions, that is prior to effective endoscopic techniques, the standard treatment was wedge resection and less frequently used and probably less effective treatment was oversewing of the lesion. The patient is to go to the operating room today. Hopefully, he will be able to have the lesion excised or oversewn assuming it could be located. PROCEDURE: With the patient under general anesthesia in supine position and with an epidural catheter in place, he was prepped and draped in sterile manner. I passed the Olympus gastroscope easily through the mouth and pharynx into the upper esophagus and advanced it through the esophagus to the stomach. There were no abnormalities of the esophagus seen. Within the stomach, there were clumps of old blood, although there was no active bleeding visible at this time. I did see at least 2 of the previously placed endoscopic clips and indeed these were very very close to the gastroesophageal junction. They appeared to be on the anterior wall and closer to the lesser curvature. The stomach was suctioned and then the scope was removed. The patient's abdomen was then prepped and draped in a sterile manner. A midline upper abdominal incision was made. Hemostasis was obtained with electrocautery. The left lobe of the liver was mobilized and a Bookwalter retractor was used for exposure. Sharp and blunt as well as Harmonic scalpel dissection was then used to mobilize OPERATIVE REPORT [id number] LEO PEREZ D the distal esophagus and define the anatomy of the esophageal hiatus. The esophagus was fully mobilized and retracted as needed and encircled with a Teachey drain. The cardia and fundus of the stomach were fully mobilized, dividing the vessels along the lesser and greater curvature. The stomach was mobilized from the splenocolic ligament. During this process, bleeding from larger arteries, possibly even the splenic artery, were controlled with suture ligatures of silk. Some fibrillar hydrostatic material was used to help him control oozing in this area. When fully mobilized, the stomach was opened on its anterior wall with electrocautery and retractor was utilized through this gastrotomy as needed. Contents of the stomach, mostly old clot, were removed and 4 of the previously placed clips were then easily seen in a row, extending radially out from the esophagogastric junction. I did not feel I could excise this lesion back close to the GE junction without risking more significant complications. I felt that it should be quite reasonable to try to oversew the vessel in line with these clips. The clips were removed one at a time as [id number] sutures of 2-0 silk were placed. During this process, there was no bleeding. I do think that I could feel some induration within the wall of the stomach along this line and I think that might correspond to thrombosed submucosal artery. The area was irrigated with saline and no active bleeding going on and no other lesions seen. The gastrotomy was closed with TA-60 stapling device with green santy and the stomach was decompressed with an orogastric tube passed by the anesthesiologist. He was unable to insert a nasogastric tube due to obstruction and bleeding from the nasal passages. I elected to insert a gastrostomy tube to assure adequate postop decompression. I chose an 18-gauge Bard silicone tube and placed it in through a stab incision in the left upper quadrant of the abdomen. It was placed into the stomach through 2 concentric pursestring sutures of 3-0 Vicryl. The balloon was inflated and the tube was pulled up against the anterior abdominal wall, where it was sutured with additional 3-0 Vicryl sutures. The abdominal incision was then closed with running looped PDS and skin was closed with santy and sterile dressings applied. The patient was left intubated on assisted mechanical ventilation and taken to the ICU. Plan is for the patient to be managed on the ventilator in ICU overnight. Hopefully, he will be extubated in the morning and perhaps even able to be transferred back to the floor tomorrow or the next day. We will use his epidural catheter for postoperative pain management and this will be managed by anesthesiology. Pulmonary medicine was consulted for ventilator management and general pulmonary care. Blood lost in the operation of about 150 cc was not specifically replaced, but the patient was given 2 units of packed red blood cells intraoperatively as his initial hematocrit prior to surgery was only 23. CBC is pending now postop. No drain was utilized. All sponges, instruments, and needles were accounted for. The rim of the gastrotomy, which was removed at the time of staple closure, was sent to pathology for H&E. No other tissue was sent for surgical pathology. PLAN: The patient will probably be in the hospital for 4-10 days and hopefully will be able to be discharged to home on his same renal diet and medications by that time. TRANSINT:[id number] Voice Confirmation ID: [id number] DOCUMENT ID: [id number] OPERATIVE REPORT [id number] LEO PEREZ JAMES MD at 0847 CC: SPEEDY NATARAJAN MD [id number] DICTATION DATE: 04/05/18 172 OFFICE NURSE: 04/05/18 1834 DIS IN 04/12/18 [facility] [address] [place] [address]
--- NOTE | ~2018-03-28 | CN ---
PATIENT NAME:LEO PEREZ MEDICAL RECORD: [id number] : 52 LOCATION:D. D.2111 ADMIT DATE: 03/28/18 ACCOUNT: [id number] CONSULTING PHYSICIAN: KIMMY MARI MD REFERRING PHYSICIAN: HECTOR GAVIRIA MD DATE OF CONSULTATION: 04/06/2018 REQUESTING PHYSICIAN: Dr. Bloom. REASON FOR CONSULTATION: Vent management. HISTORY OF PRESENT ILLNESS: Mr. Perez is a 68-year-old gentleman, now he is orally intubated and sedated. History was obtained from reviewing the patient's note. The patient underwent EGD under general anesthesia and there was a bleeding ulcer with Dieulafoy AVM in the cardia that was oversewed and specimens were taken for the biopsy. The patient was left on the ventilator last night. REVIEW OF SYSTEMS: As in history of present illness. PAST MEDICAL HISTORY: 1. COPD. 2. Recurrent gastrointestinal bleed. 3. End-stage renal disease. 4. Hypertension. 5. Coronary artery disease. 6. Atrial fibrillation. 7. History of pneumonia. PAST SURGICAL HISTORY: 1. Herniorrhaphy. 2. HemoSplit placement. 3. Peritoneal dialysis placement. ALLERGIES: He is allergic to TRAMADOL. PRESENT MEDICATIONS: On [employer] is reviewed. PERSONAL AND SOCIAL HISTORY: The detail is not obtainable. FAMILY HISTORY: Significant for cancers. PHYSICAL EXAMINATION: GENERAL: Now, the patient is orally intubated and sedated. VITAL SIGNS: The blood pressure is 113/71, pulse is 59, respirations 15, temperature 98.4, and SPO2 is 96% on assist control mechanical ventilation, 60% oxygen. HEENT: Conjunctivae are pink. Sclerae are not icteric. NECK: Supple, no JVD. CHEST: There is crackle. No wheezing. HEART: Rhythm regular, normal sound, no murmur. ABDOMEN: Soft. Bowel sounds are muffled. RECTAL: Deferred. EXTREMITIES: No cyanosis, no clubbing. There is 1+ pedal edema. CENTRAL NERVOUS SYSTEM: The patient is orally intubated and sedated, but the patient responding to verbal stimuli. CONSULT REPORT [id number] LEO PEREZ LABORATORY DATA: CBC: WBC 9.4, hemoglobin is 28.5, the platelet count 126. Chemistry: Sodium is 132, potassium 5.4, BUN is 67, creatinine 12.3. ABG: The pH is 7.34, pCO2 of 36.3, the pO2 is 75. IMPRESSION: 1. Acute respiratory failure post-procedure. 2. Anemia secondary to upper GI bleed. 3. Status post EGD, oversewing of bleeding ulcer. 4. COPD without exacerbation. 5. Fatbr-fc-xuhibmx anemia secondary to GI bleed and end-stage renal disease. RECOMMENDATION: 1. We will continue mechanical ventilation. I will add adjust the setting. We will start trying weaning him tomorrow. 2. Continue Protonix, continue empiric antibiotic. 3. Albuterol ipratropium nebulizer. 4. Hemodialysis per nephrology. 5. Blood transfusion with the hemodialysis. Follow up labs and chest radiograph. Thank you for involving me in the care of Mr. Perez. TRANSINT:[id number] Voice Confirmation ID: [id number] DOCUMENT ID: [id number] KIMMY MARI MD at 1110 CC: [id number] DICTATION DATE: 04/06/18 1541 ELECTRIC SPOT WELDER: 04/06/18 1618 DIS IN 04/12/18 [facility] [address] [place] [address]
[~2018-03-28 05:55] MED LIST changes: +BAYER CHEWABLE81 MG PO
[2018-03-28 07:09] LABS: BASOPHILS 0.4 % (0-2); EOSINOPHILS 3.3 % (0-7); HEMATOCRIT 23.5 % (42.0-54.0); LYMPHOCYTES 16.2 % (15-50); MCH 31.9 pg (26.0-34.0); MCHC 31.5 g/dL (31.0-37.0); MCV 101.3 fL (80.0-100.0); MEAN PLATELET VOLUME 11.7 fL (7.4-10.4); MONOCYTES 6.7 % (2-11); NEUTROPHILS 73.4 % (40-80); PLATELET COUNT 160 10x3/uL (130-400); RBC 2.32 10x6/uL (4.20-6.10); RDW 19.8 % (11.5-14.5); WBC 5.7 10x3/uL (4.8-10.8)
[2018-03-28 07:13] LABS: APTT 33.9 SECONDS (22.8-39.4); INR 1.31 (0.85-1.17); PROTIME 15.8 SECONDS (11.6-15.0)
[2018-03-28 07:14] LABS: HEMOGLOBIN 7.4 g/dL (13.5-17.5)
[2018-03-28 07:18] LABS: ANION GAP 18.1 mmol/L (8-16); BILIRUBIN - TOTAL 0.34 mg/dL (0.2-1.3); CALCIUM 8.3 mg/dL (8.5-10.1); CARBON DIOXIDE 26.4 mmol/L (21.0-32.0); CREATININE - SERUM 10.6 mg/dL (0.6-1.3); POTASSIUM - SERUM 4.5 mmol/L (3.5-5.1); PROTEIN - SERUM 6.1 g/dL (6.4-8.2)
[2018-03-29] VITALS (9 sets, daily range): BP systolic 135–182; BP diastolic 74–100; BMI 30.4; BMI 30.5
[2018-03-29 06:06] LABS: BASOPHILS 0.6 % (0-2); EOSINOPHILS 2.7 % (0-7); HEMATOCRIT 26.5 % (42.0-54.0); HEMOGLOBIN 8.6 g/dL (13.5-17.5); IMMATURE GRANULOCYTES 0.2 % (0-5); LYMPHOCYTES 15.4 % (15-50); MCH 31.9 pg (26.0-34.0); MCHC 32.5 g/dL (31.0-37.0); MEAN PLATELET VOLUME 11.4 fL (7.4-10.4); MONOCYTES 9.2 % (2-11); NEUTROPHILS 71.9 % (40-80); PLATELET COUNT 158 10x3/uL (130-400); WBC 6.4 10x3/uL (4.8-10.8)
[2018-03-29 06:08] LABS: MCV 98.1 fL (80.0-100.0)
[2018-03-29 06:18] LABS: APTT 34.4 SECONDS (22.8-39.4); INR 1.32 (0.85-1.17)
[2018-03-29 06:51] LABS: ANION GAP 20.3 mmol/L (8-16); CALCIUM 8.3 mg/dL (8.5-10.1); CARBON DIOXIDE 24.6 mmol/L (21.0-32.0); CREATININE - SERUM 11.9 mg/dL (0.6-1.3); POTASSIUM - SERUM 4.9 mmol/L (3.5-5.1)
[2018-03-30] VITALS: BP 158/84
[2018-03-30 04:00] VITALS: BP 157/87
[2018-03-30 07:05] LABS: BASOPHILS 0.4 % (0-2); EOSINOPHILS 2.7 % (0-7); HEMATOCRIT 26.3 % (42.0-54.0); HEMOGLOBIN 8.8 g/dL (13.5-17.5); IMMATURE GRANULOCYTES 0.2 % (0-5); LYMPHOCYTES 16.8 % (15-50); MCH 32.1 pg (26.0-34.0); MCHC 33.5 g/dL (31.0-37.0); MEAN PLATELET VOLUME 11.8 fL (7.4-10.4); NEUTROPHILS 70.9 % (40-80); PLATELET COUNT 138 10x3/uL (130-400); RBC 2.74 10x6/uL (4.20-6.10); RDW 21.1 % (11.5-14.5); WBC 5.5 10x3/uL (4.8-10.8)
[2018-03-30 07:22] LABS: ANION GAP 17.2 mmol/L (8-16); CALCIUM 8.5 mg/dL (8.5-10.1); CREATININE - SERUM 10.3 mg/dL (0.6-1.3); PHOSPHOROUS 5.3 mg/dL (2.5-4.9); POTASSIUM - SERUM 4.2 mmol/L (3.5-5.1)
[2018-03-30 09:06] VITALS: BP 158/83
[2018-03-30 13:26] VITALS: BP 147/78
[2018-03-30 17:31] VITALS: BP 156/89
[2018-03-30 21:05] VITALS: BP 148/66
[2018-03-31 01:36] VITALS: BP 134/70
[2018-03-31 06:09] VITALS: BP 140/74
[2018-03-31 06:29] LABS: BASOPHILS 0.2 % (0-2); EOSINOPHILS 3.4 % (0-7); HEMATOCRIT 27.3 % (42.0-54.0); HEMOGLOBIN 8.7 g/dL (13.5-17.5); IMMATURE GRANULOCYTES 0.2 % (0-5); LYMPHOCYTES 17.8 % (15-50); MCH 31.9 pg (26.0-34.0); MCHC 31.9 g/dL (31.0-37.0); MEAN PLATELET VOLUME 11.7 fL (7.4-10.4); MONOCYTES 10.6 % (2-11); NEUTROPHILS 67.8 % (40-80); PLATELET COUNT 137 10x3/uL (130-400); RBC 2.73 10x6/uL (4.20-6.10); RDW 20.9 % (11.5-14.5); WBC 5.9 10x3/uL (4.8-10.8)
[2018-03-31 07:00] LABS: ANION GAP 18.7 mmol/L (8-16); CALCIUM 7.9 mg/dL (8.5-10.1); CARBON DIOXIDE 24.5 mmol/L (21.0-32.0); CREATININE - SERUM 11.8 mg/dL (0.6-1.3); POTASSIUM - SERUM 4.2 mmol/L (3.5-5.1)
[2018-03-31 09:08] VITALS: BP 160/88
[2018-03-31 16:46] VITALS: BP 143/99
[2018-03-31 20:41] VITALS: BP 134/69
[2018-04-01 00:31] VITALS: BP 136/69
[2018-04-01 06:04] VITALS: BP 149/79
[2018-04-01 06:49] LABS: BASOPHILS 0.4 % (0-2); EOSINOPHILS 4.8 % (0-7); HEMATOCRIT 26.3 % (42.0-54.0); HEMOGLOBIN 8.7 g/dL (13.5-17.5); IMMATURE GRANULOCYTES 0.2 % (0-5); LYMPHOCYTES 24.7 % (15-50); MCH 32.5 pg (26.0-34.0); MCHC 33.1 g/dL (31.0-37.0); MCV 98.1 fL (80.0-100.0); MEAN PLATELET VOLUME 11.8 fL (7.4-10.4); MONOCYTES 7.7 % (2-11); NEUTROPHILS 62.2 % (40-80); PLATELET COUNT 114 10x3/uL (130-400); RBC 2.68 10x6/uL (4.20-6.10); WBC 5.4 10x3/uL (4.8-10.8)
[2018-04-01 07:16] LABS: ANION GAP 14.8 mmol/L (8-16); CALCIUM 7.7 mg/dL (8.5-10.1); PHOSPHOROUS 5.1 mg/dL (2.5-4.9); POTASSIUM - SERUM 3.8 mmol/L (3.5-5.1)
[2018-04-01 07:23] LABS: CREATININE - SERUM 8.6 mg/dL (0.6-1.3)
[2018-04-01 07:53] VITALS: BP 131/72
[2018-04-01 11:00] VITALS: BP 153/86
[2018-04-01 16:14] VITALS: BP 134/60
[2018-04-01 20:35] VITALS: BP 135/62
[2018-04-02 00:21] VITALS: BP 127/74
[2018-04-02 05:07] VITALS: BP 138/67
[2018-04-02 06:05] LABS: BASOPHILS 0.4 % (0-2); EOSINOPHILS 5.7 % (0-7); HEMATOCRIT 24.8 % (42.0-54.0); HEMOGLOBIN 8.2 g/dL (13.5-17.5); IMMATURE GRANULOCYTES 0.2 % (0-5); LYMPHOCYTES 13.8 % (15-50); MCH 32.3 pg (26.0-34.0); MCHC 33.1 g/dL (31.0-37.0); MCV 97.6 fL (80.0-100.0); MEAN PLATELET VOLUME 12.1 fL (7.4-10.4); MONOCYTES 10.1 % (2-11); NEUTROPHILS 69.8 % (40-80); PLATELET COUNT 111 10x3/uL (130-400); RBC 2.54 10x6/uL (4.20-6.10); RDW 19.5 % (11.5-14.5); WBC 5.4 10x3/uL (4.8-10.8)
[2018-04-02 06:32] LABS: ANION GAP 16.4 mmol/L (8-16); CALCIUM 7.8 mg/dL (8.5-10.1); CARBON DIOXIDE 24.7 mmol/L (21.0-32.0); CREATININE - SERUM 10.3 mg/dL (0.6-1.3); PHOSPHOROUS 5.4 mg/dL (2.5-4.9); POTASSIUM - SERUM 4.1 mmol/L (3.5-5.1)
[2018-04-02 08:45] VITALS: BP 150/78
[2018-04-02 15:54] VITALS: BP 140/80
[2018-04-02 21:43] VITALS: BP 132/65
[2018-04-03 03:03] VITALS: BP 138/62
[2018-04-03 06:01] VITALS: BP 154/66
[2018-04-03 07:31] LABS: BASOPHILS 0.2 % (0-2); EOSINOPHILS 4.7 % (0-7); HEMATOCRIT 23.7 % (42.0-54.0); HEMOGLOBIN 7.7 g/dL (13.5-17.5); IMMATURE GRANULOCYTES 0.2 % (0-5); LYMPHOCYTES 17.2 % (15-50); MCH 31.7 pg (26.0-34.0); MCHC 32.5 g/dL (31.0-37.0); MCV 97.5 fL (80.0-100.0); MEAN PLATELET VOLUME 11.8 fL (7.4-10.4); MONOCYTES 11.3 % (2-11); NEUTROPHILS 66.4 % (40-80); PLATELET COUNT 105 10x3/uL (130-400); RBC 2.43 10x6/uL (4.20-6.10); RDW 19.1 % (11.5-14.5); WBC 5.1 10x3/uL (4.8-10.8)
[2018-04-03 07:48] LABS: ANION GAP 11.8 mmol/L (8-16); CALCIUM 8.1 mg/dL (8.5-10.1); CARBON DIOXIDE 26.6 mmol/L (21.0-32.0); CREATININE - SERUM 8.1 mg/dL (0.6-1.3); PHOSPHOROUS 4.5 mg/dL (2.5-4.9); POTASSIUM - SERUM 4.4 mmol/L (3.5-5.1)
[2018-04-03 08:13] VITALS: BP 153/81
[2018-04-03 11:53] VITALS: BP 146/87
[2018-04-03 15:37] VITALS: BP 142/77
[2018-04-03 20:30] VITALS: BP 145/75
[2018-04-04 00:30] VITALS: BP 145/83
[2018-04-04 04:30] VITALS: BP 128/65
[2018-04-04 09:13] VITALS: BP 113/62
[2018-04-04 12:02] VITALS: BP 147/68
[2018-04-04 15:42] VITALS: BP 136/70
[2018-04-04 17:21] VITALS: Ht 193 cm; Wt 108.8 kg
[2018-04-05] VITALS (18 sets, daily range): BP systolic 101–177; BP diastolic 66–113
[2018-04-05 05:58] LABS: BASOPHILS 0.2 % (0-2); EOSINOPHILS 3.5 % (0-7); HEMATOCRIT 23.3 % (42.0-54.0); HEMOGLOBIN 7.6 g/dL (13.5-17.5); IMMATURE GRANULOCYTES 0.2 % (0-5); LYMPHOCYTES 16.2 % (15-50); MCH 32.2 pg (26.0-34.0); MCHC 32.6 g/dL (31.0-37.0); MCV 98.7 fL (80.0-100.0); MEAN PLATELET VOLUME 11.7 fL (7.4-10.4); NEUTROPHILS 68.9 % (40-80); PLATELET COUNT 110 10x3/uL (130-400); RBC 2.36 10x6/uL (4.20-6.10)
[2018-04-05 06:04] LABS: INR 1.17 (0.85-1.17); PROTIME 14.5 SECONDS (11.6-15.0)
[2018-04-05 06:24] LABS: ANION GAP 14.3 mmol/L (8-16); CALCIUM 8.1 mg/dL (8.5-10.1); CARBON DIOXIDE 25.8 mmol/L (21.0-32.0); POTASSIUM - SERUM 4.1 mmol/L (3.5-5.1)
[2018-04-05 06:26] LABS: CREATININE - SERUM 11.2 mg/dL (0.6-1.3)
[2018-04-05 17:16] LABS: BASOPHILS 0.3 % (0-2); EOSINOPHILS 1.5 % (0-7); IMMATURE GRANULOCYTES 0.3 % (0-5); MCHC 33.1 g/dL (31.0-37.0); MEAN PLATELET VOLUME 12.1 fL (7.4-10.4); MONOCYTES 6.2 % (2-11); NEUTROPHILS 84.7 % (40-80); PLATELET COUNT 124 10x3/uL (130-400); RDW 18.2 % (11.5-14.5); WBC 7.3 10x3/uL (4.8-10.8)
[2018-04-05 17:17] LABS: HEMATOCRIT 28.4 % (42.0-54.0); HEMOGLOBIN 9.4 g/dL (13.5-17.5); MCV 96.6 fL (80.0-100.0); RBC 2.94 10x6/uL (4.20-6.10)
[2018-04-05 17:31] LABS: INR 1.2 (0.85-1.17); PROTIME 14.8 SECONDS (11.6-15.0)
[2018-04-05 18:09] LABS: ANION GAP 17.4 mmol/L (8-16); CALCIUM 7.3 mg/dL (8.5-10.1); CARBON DIOXIDE 22.4 mmol/L (21.0-32.0); CREATININE - SERUM 11.3 mg/dL (0.6-1.3)
[2018-04-05 18:18] LABS: POTASSIUM - SERUM 4.8 mmol/L (3.5-5.1)
[2018-04-06] VITALS (25 sets, daily range): BP systolic 87–145; BP diastolic 53–80
[2018-04-06 05:08] LABS: BASOPHILS 0 % (0-2); EOSINOPHILS 0.1 % (0-7); HEMATOCRIT 28.5 % (42.0-54.0); HEMOGLOBIN 9.6 g/dL (13.5-17.5); IMMATURE GRANULOCYTES 0.3 % (0-5); LYMPHOCYTES 5.3 % (15-50); MCH 32.2 pg (26.0-34.0); MCHC 33.7 g/dL (31.0-37.0); MCV 95.6 fL (80.0-100.0); MEAN PLATELET VOLUME 11.9 fL (7.4-10.4); NEUTROPHILS 90.3 % (40-80); PLATELET COUNT 126 10x3/uL (130-400); RBC 2.98 10x6/uL (4.20-6.10); RDW 18.6 % (11.5-14.5)
[2018-04-06 05:09] LABS: WBC 9.4 10x3/uL (4.8-10.8)
[2018-04-06 05:22] LABS: ALBUMIN 2.5 g/dL (3.4-5.0); ANION GAP 18.5 mmol/L (8-16); BILIRUBIN - TOTAL 0.54 mg/dL (0.2-1.3); CALCIUM 7.3 mg/dL (8.5-10.1); CARBON DIOXIDE 20.9 mmol/L (21.0-32.0); CREATININE - SERUM 12.3 mg/dL (0.6-1.3); POTASSIUM - SERUM 5.4 mmol/L (3.5-5.1); PROTEIN - SERUM 5.5 g/dL (6.4-8.2)
[2018-04-07] VITALS (24 sets, daily range): BP systolic 101–141; BP diastolic 61–84
[2018-04-07 05:04] LABS: BASOPHILS 0.1 % (0-2); EOSINOPHILS 0.6 % (0-7); HEMOGLOBIN 9.5 g/dL (13.5-17.5); IMMATURE GRANULOCYTES 0.2 % (0-5); LYMPHOCYTES 7.6 % (15-50); MCH 32.1 pg (26.0-34.0); MCHC 33.9 g/dL (31.0-37.0); MCV 94.6 fL (80.0-100.0); MEAN PLATELET VOLUME 12.3 fL (7.4-10.4); NEUTROPHILS 81.5 % (40-80); PLATELET COUNT 119 10x3/uL (130-400); RBC 2.96 10x6/uL (4.20-6.10); RDW 19.2 % (11.5-14.5); WBC 8.4 10x3/uL (4.8-10.8)
[2018-04-07 05:27] LABS: ANION GAP 13.5 mmol/L (8-16); CALCIUM 7.4 mg/dL (8.5-10.1); CARBON DIOXIDE 25.9 mmol/L (21.0-32.0); CREATININE - SERUM 10.3 mg/dL (0.6-1.3); PHOSPHOROUS 6.9 mg/dL (2.5-4.9)
[2018-04-07 05:40] LABS: POTASSIUM - SERUM 4.4 mmol/L (3.5-5.1)
[2018-04-08] VITALS (17 sets, daily range): BP systolic 138–177; BP diastolic 76–112
[2018-04-08 03:45] LABS: BASOPHILS 0 % (0-2); EOSINOPHILS 0.5 % (0-7); HEMATOCRIT 27.2 % (42.0-54.0); HEMOGLOBIN 9.1 g/dL (13.5-17.5); IMMATURE GRANULOCYTES 0.2 % (0-5); LYMPHOCYTES 8.2 % (15-50); MCH 31.8 pg (26.0-34.0); MCHC 33.5 g/dL (31.0-37.0); MCV 95.1 fL (80.0-100.0); MEAN PLATELET VOLUME 11.3 fL (7.4-10.4); MONOCYTES 6.6 % (2-11); NEUTROPHILS 84.5 % (40-80); PLATELET COUNT 135 10x3/uL (130-400); RBC 2.86 10x6/uL (4.20-6.10); RDW 18.1 % (11.5-14.5); WBC 9.8 10x3/uL (4.8-10.8)
[2018-04-08 04:00] LABS: ANION GAP 17.5 mmol/L (8-16); CALCIUM 7.6 mg/dL (8.5-10.1); CARBON DIOXIDE 22.7 mmol/L (21.0-32.0); PHOSPHOROUS 7.6 mg/dL (2.5-4.9); POTASSIUM - SERUM 4.2 mmol/L (3.5-5.1)
[2018-04-09] VITALS (23 sets, daily range): BP systolic 129–178; BP diastolic 64–113
[2018-04-09 04:29] LABS: BASOPHILS 0.2 % (0-2); EOSINOPHILS 2.2 % (0-7); HEMATOCRIT 28.2 % (42.0-54.0); HEMOGLOBIN 9.5 g/dL (13.5-17.5); IMMATURE GRANULOCYTES 0.2 % (0-5); LYMPHOCYTES 3.4 % (15-50); MCH 32.3 pg (26.0-34.0); MCHC 33.7 g/dL (31.0-37.0); MCV 95.9 fL (80.0-100.0); MEAN PLATELET VOLUME 11.3 fL (7.4-10.4); MONOCYTES 11.3 % (2-11); NEUTROPHILS 82.7 % (40-80); PLATELET COUNT 154 10x3/uL (130-400); RBC 2.94 10x6/uL (4.20-6.10); RDW 17.8 % (11.5-14.5); WBC 10.7 10x3/uL (4.8-10.8)
[2018-04-09 04:42] LABS: ANION GAP 12.3 mmol/L (8-16); CALCIUM 8.1 mg/dL (8.5-10.1); CARBON DIOXIDE 27.4 mmol/L (21.0-32.0); CREATININE - SERUM 10.1 mg/dL (0.6-1.3); MAGNESIUM - SERUM 2.1 mg/dL (1.8-2.4); PHOSPHOROUS 5.9 mg/dL (2.5-4.9); POTASSIUM - SERUM 3.7 mmol/L (3.5-5.1)
[2018-04-10] VITALS (24 sets, daily range): BP systolic 128–170; BP diastolic 60–101
[2018-04-10 04:52] LABS: BASOPHILS 0.1 % (0-2); EOSINOPHILS 3.8 % (0-7); HEMATOCRIT 26.9 % (42.0-54.0); HEMOGLOBIN 9.2 g/dL (13.5-17.5); IMMATURE GRANULOCYTES 0.1 % (0-5); LYMPHOCYTES 4.3 % (15-50); MCH 32.6 pg (26.0-34.0); MCHC 34.2 g/dL (31.0-37.0); MCV 95.4 fL (80.0-100.0); MEAN PLATELET VOLUME 10.4 fL (7.4-10.4); MONOCYTES 12.8 % (2-11); NEUTROPHILS 78.9 % (40-80); PLATELET COUNT 144 10x3/uL (130-400); RBC 2.82 10x6/uL (4.20-6.10); RDW 17.3 % (11.5-14.5); WBC 9.7 10x3/uL (4.8-10.8)
[2018-04-10 05:05] LABS: ANION GAP 17.1 mmol/L (8-16); CARBON DIOXIDE 24.5 mmol/L (21.0-32.0); POTASSIUM - SERUM 3.6 mmol/L (3.5-5.1)
[2018-04-11] VITALS (16 sets, daily range): BP systolic 138–176; BP diastolic 78–101
[2018-04-11 06:11] LABS: BASOPHILS 0.1 % (0-2); EOSINOPHILS 4.4 % (0-7); HEMATOCRIT 25.8 % (42.0-54.0); HEMOGLOBIN 8.6 g/dL (13.5-17.5); IMMATURE GRANULOCYTES 0.2 % (0-5); LYMPHOCYTES 6.1 % (15-50); MCH 31.7 pg (26.0-34.0); MCHC 33.3 g/dL (31.0-37.0); MCV 95.2 fL (80.0-100.0); MONOCYTES 11.2 % (2-11); PLATELET COUNT 152 10x3/uL (130-400); RBC 2.71 10x6/uL (4.20-6.10); RDW 17.1 % (11.5-14.5); WBC 9.5 10x3/uL (4.8-10.8)
[2018-04-11 06:30] LABS: ANION GAP 18.6 mmol/L (8-16); CALCIUM 8.2 mg/dL (8.5-10.1); CARBON DIOXIDE 23.3 mmol/L (21.0-32.0); CREATININE - SERUM 12.1 mg/dL (0.6-1.3); POTASSIUM - SERUM 3.9 mmol/L (3.5-5.1)
[2018-04-12] VITALS: BP 155/82
[2018-04-12 04:00] VITALS: BP 165/89
[2018-04-12 06:14] LABS: BASOPHILS 0.1 % (0-2); HEMATOCRIT 26.9 % (42.0-54.0); IMMATURE GRANULOCYTES 0.2 % (0-5); LYMPHOCYTES 7.8 % (15-50); MCH 31.4 pg (26.0-34.0); MCHC 33.5 g/dL (31.0-37.0); MCV 93.7 fL (80.0-100.0); MEAN PLATELET VOLUME 10.9 fL (7.4-10.4); MONOCYTES 5.6 % (2-11); NEUTROPHILS 82.3 % (40-80); RBC 2.87 10x6/uL (4.20-6.10); WBC 9.9 10x3/uL (4.8-10.8)
[2018-04-12 06:25] LABS: ANION GAP 21.1 mmol/L (8-16); CALCIUM 8.6 mg/dL (8.5-10.1); CREATININE - SERUM 10.6 mg/dL (0.6-1.3); PHOSPHOROUS 4.6 mg/dL (2.5-4.9); POTASSIUM - SERUM 4.1 mmol/L (3.5-5.1)
[2018-04-12 06:44] LABS: PLATELET COUNT 185 10x3/uL (130-400)
[2018-04-12 06:45] LABS: THYROID STIMULATING HORMONE 18.39 uIU/mL (0.36-3.74)
[2018-04-12 08:21] VITALS: BP 168/88
[2018-04-12 11:47] VITALS: BP 138/67
[2018-04-12] MEDS ORDERED: LEVAQUIN750 MG PO (12:43)
== END 2018-04-12 16:34 | disposition home or self-care (01) | DRG 326 ==
LOC: D.ER 05:55 → D.EDHOLD 08:21 → D.M2 08:21 → D.ICU 08:21 → D.M2 03-29 15:57 → D.ICU 04-05 13:49 → D.M2 04-11 22:52
PROVIDERS: Family Medicine; Internal Medicine Nephrology; Internal Medicine Pulmonary Disease; Radiology Diagnostic Radiology; Surgery
PROC: 5A1D70Z Performance of Urinary Filtration, Intermittent, Less than 6 Hours Per Day (ICD-10-PCS; 2018-03-29)
PROC: B4151ZZ Fluoroscopy of Inferior Mesenteric Artery using Low Osmolar Contrast (ICD-10-PCS; principal; 2018-03-29 08:25)
PROC: 0DQ60ZZ Repair Stomach, Open Approach (ICD-10-PCS; 2018-04-05)
PROC: 0DH60UZ Insertion of Feeding Device into Stomach, Open Approach (ICD-10-PCS; 2018-04-05)
PROC: B4141ZZ Fluoroscopy of Superior Mesenteric Artery using Low Osmolar Contrast (ICD-10-PCS; 2018-04-05)
PROC: 0DJ08ZZ Inspection of Upper Intestinal Tract, Via Natural or Artificial Opening Endoscopic (ICD-10-PCS; 2018-04-05)
PROC: 0DC60ZZ Extirpation of Matter from Stomach, Open Approach (ICD-10-PCS; 2018-04-05 13:15)
PROC: 0DP Gastrointestinal System, Removal (ICD-10-PCS; 2018-04-05 13:15)
DX: K31.82 Dieulafoy lesion (hemorrhagic) of stomach and duodenum (principal); N18.6 End stage renal disease; J96.00 Acute respiratory failure, unspecified whether with hypoxia or hypercapnia; I13.2 Hypertensive heart and chronic kidney disease with heart failure and with stage 5 chronic kidney disease, or end stage renal disease; E87.1 Hypo-osmolality and hyponatremia; E11.22 Type 2 diabetes mellitus with diabetic chronic kidney disease; E11.65 Type 2 diabetes mellitus with hyperglycemia; I25.10 Atherosclerotic heart disease of native coronary artery without angina pectoris; D63.1 Anemia in chronic kidney disease; I48.91 Unspecified atrial fibrillation; Z86.73 Personal history of transient ischemic attack (TIA), and cerebral infarction without residual deficits; I50.9 Heart failure, unspecified; Z99.2 Dependence on renal dialysis; E83.39 Other disorders of phosphorus metabolism; E03.9 Hypothyroidism, unspecified

== ENCOUNTER → 2018-07-14 09:30 | Outpatient (CLI) | payer MEDICARE, BC, MEDICAID ==
[2018-04-04 17:21] VITALS: BMI 30.5
[~2018-07-14 09:30] MED LIST changes: +LEVAQUIN750 MG PO
== END | disposition home or self-care (01) ==
LOC: D.RT 09:30
DX: J44.1 Chronic obstructive pulmonary disease with (acute) exacerbation (principal)

== ENCOUNTER 2019-01-16 11:26 | Emergency (ER) | payer MEDICARE, BC, MEDICAID ==
[~2019-01-16] VITALS: Ht 193 cm; Wt 111.8 kg
--- NOTE | ~2019-01-16 | CN ---
PATIENT NAME:LEO PEREZ MEDICAL RECORD: [id number] : 52 LOCATION:D.ER ADMIT DATE: ACCOUNT: [id number] CONSULTING PHYSICIAN: VIRY NOLAN MD REFERRING PHYSICIAN: MINERVA TITUS MD DATE OF CONSULTATION: 01/16/2019 DIAGNOSES: 1. Angina. 2. Coronary artery disease. 3. Previous percutaneous transluminal coronary angioplasty stent. 4. End-stage renal failure, on dialysis. 5. Hypertension. 6. Hyperlipidemia. HISTORY OF PRESENT ILLNESS: Mr. Perez has been having episodes of chest discomfort since Wednesday. He has taken nitro. That have resolved them. He presents to the Emergency Room due to continued episodes of pain. His EKG is with no acute ST-T abnormalities. He is pain free now. PHYSICAL EXAMINATION: GENERAL APPEARANCE: Well-nourished, well-developed, appears stated age. Level of distress, comfortable. PSYCHIATRIC: Mental status, alert, normal affect. Orientation, oriented to time, place and person. EYES: Lids and conjunctiva, noninjected. No discharge, no pallor. ENT: Lips, teeth, gums, normal dentition. Oropharynx, no cyanosis, no pallor. NECK: Carotid arteries, bilateral normal upstroke, no bruits, no thrills. JUGULAR VEINS: No jugular venous pressure or distention. CERVICAL LYMPH NODES: Nontender, nonenlarged. THYROID: Not enlarged. Nontender. No nodules. LUNGS: Respiratory effort, unlabored. CHEST: Normal curvature. No thoracic deformity. No chest wall tenderness. Percussion, resonant. Auscultation, clear. No wheezes, no rales, no rhonchi. CARDIOVASCULAR: Precordial exam, nondisplaced. No heaves or pericardial thrills. Rate and rhythm, regular. Heart sounds, normal S1, normal S2. No S3, no gallop, no rub. Systolic murmur, not heard. Diastolic murmur, not heard. EXTREMITIES: No cyanosis, no edema. Peripheral pulses, full and equal in all extremities, except as noted. No bruits appreciated. ABDOMEN: Soft, nondistended. Normal aorta. No bruit. Nontender. No masses. Liver, nontender, no hepatomegaly. Spleen, nontender, no splenomegaly. MUSCULOSKELETAL: No joint tenderness. No joint swelling. No erythema. NEUROLOGICAL: Normal gait, normal strength, normal tone. SKIN: Warm and dry. OVERALL IMPRESSION: Most likely he does have recurrent hemodynamically significant coronary artery disease. He has got issues that he needs to attend to today, but he is willing to come back tomorrow for cardiac catheterization. Further care depends upon the findings of the catheterization. TRANSINT:[id number] Voice Confirmation ID: [id number] DOCUMENT ID: [id number] CONSULT REPORT [id number] LEO PEREZ JEFFREY MD CC: [id number] DICTATION DATE: 01/16/19 1328 [place] PACKING: 01/16/19 1431 [facility] [address] [place] [place] [id number]
[2019-01-16 11:30] VITALS: Ht 193 cm; Wt 111.8 kg
[2019-01-16] MEDS ORDERED: ASPIRIN325 MG PO (11:35)
[2019-01-16] MEDS ORDERED: ATARAX 25 MG TA25 MG PO (11:36)
[2019-01-16] MEDS ORDERED: FEXOFENADINE H180 MG PO (11:36)
[2019-01-16] MEDS ORDERED: NEPHRO-VITE RX1 TAB PO (11:36)
[2019-01-16] MEDS ORDERED: ENTRESTO 49 MG1 EACH PO (11:40)
[2019-01-16] MEDS ORDERED: PHOSLO667 MG PO (11:41)
[2019-01-16] MEDS ORDERED: ZOLOFT100 MG PO (11:41)
[2019-01-16 12:11] LABS: BASOPHILS 0.3 % (0-2); EOSINOPHILS 1.1 % (0-7); HEMATOCRIT 32.4 % (42.0-54.0); IMMATURE GRANULOCYTES 0.3 % (0-5); LYMPHOCYTES 14.6 % (15-50); MCH 35.3 pg (26.0-34.0); MCV 103.8 fL (80.0-100.0); MEAN PLATELET VOLUME 11.7 fL (7.4-10.4); MONOCYTES 9.7 % (2-11); RBC 3.12 10x6/uL (4.20-6.10); RDW 16.6 % (11.5-14.5); WBC 7.5 10x3/uL (4.8-10.8)
[2019-01-16 12:12] LABS: PLATELET COUNT 138 10x3/uL (130-400)
[2019-01-16 12:26] LABS: ALBUMIN 3.2 g/dL (3.4-5.0); ALKALINE PHOSPHATASE 69 U/L (46-116); ALT (SGPT) 20 U/L (10-68); BILIRUBIN - TOTAL 0.72 mg/dL (0.2-1.3); CALC OSMOLALITY 284 mosm/kg (275-300); CALCIUM 8.8 mg/dL (8.5-10.1); CARBON DIOXIDE 31.3 mmol/L (21.0-32.0); CHLORIDE - SERUM 99 mmol/L (98-107); CREATININE - SERUM 4.6 mg/dL (0.6-1.3); GLUCOSE 159 mg/dL (74-106); POTASSIUM - SERUM 3.4 mmol/L (3.5-5.1); PROTEIN - SERUM 7.5 g/dL (6.4-8.2); SODIUM 139 mmol/L (136-145); UREA NITROGEN 23 mg/dL (7-18); eGFR NON AFRICAN AMERICAN 14 mL/min (90-120)
[2019-01-16 12:40] LABS: CKMB 1.3 U/L (0.0-3.6); CREATINE KINASE 32 UL (21-232); TROPONIN-I 0.021 ng/mL (0.000-0.060)
[2019-01-16 19:27] VITALS: BP 165/99
[2019-01-17] MEDS ORDERED: NITROSTAT0.4 MG SL (08:07)
[2019-01-17] MEDS ORDERED: HYDROCODON-ACE1 EAC7 PO (08:08)
[2019-01-17] MEDS ORDERED: PLAVIX75 MG PO (10:40)
[2019-01-17] MEDS ORDERED: BAYER CHEWABLE81 MG PO (10:40)
== END 2019-01-16 13:48 | disposition home or self-care (01) ==
LOC: D.ER 11:26
PROVIDERS: Family Medicine
DX: R07.9 Chest pain, unspecified (principal); F17.200 Nicotine dependence, unspecified, uncomplicated; I12.0 Hypertensive chronic kidney disease with stage 5 chronic kidney disease or end stage renal disease; N18.6 End stage renal disease; Z99.2 Dependence on renal dialysis

== ENCOUNTER 2019-01-17 07:17 | Outpatient (CLI) | payer MEDICARE, BC, MEDICAID ==
[~2019-01-17] VITALS: Ht 193 cm; Wt 109.1 kg
--- NOTE | ~2019-01-17 | HEMODYNAMI ---
PATIENT:LEO LEUNG MEDICAL RECORD: [id number] : 52 LOCATION:[facility] ADMISSION DATE: 01/17/19 Generatedon:01/17/201910:31 Patient name: LEO LEUNG Patient #: [id number] SSN: : Date of study: 01/17/2019 Page: Of Hemodynamic Procedure Report Patient Data Patient Demographics Procedure consent was obtained First Name: LEO Gender: Male Last Name: XOCHITL : 1950 Middle Initial: D Age: 68 year(s) Patient #: [id number] Race: Additional ID: [id number] Contact details [address]: [address] [place] [address] State: [place] City: [place] Zip code: [address] Past Medical History Allergies Allergen Reaction Date Comments Reported Other allergy 12/24/2015 ultram Other allergy 07/04/2016 Tramadol Other allergy 01/17/2019 Ultram Admission Admission Data Admission Date: 01/17/2019 Admission Time: 7:17 Lab Results Lab Result Date: 01/17/2019 Lab Result Time: 8:20 Biochemistry Name Units Result Min Max BUN mg/dl 37 --(----)-* 7 18 Creatinine mg/dl 6.8 --(----)-* 0.6 1.3 CBC Name Units Result Min Max Hematocrit % 35.3 *-(----)-- 42 54 Hemoglobin g/dl 11.8 *-(----)-- 13.5 17.5 Procedure Procedure Types Cath Procedure Diagnostic Procedure LHC LHC w/Coronaries Sedation Charges Moderate Sedation up to 15 minutes PCI Procedure Coronary Stent Coronary Stent Initial x2 Procedure Description Procedure Date Procedure Date: 01/17/2019 Procedure Start Time: 10:12 Procedure End Time: 10:29 Procedure Staff Name Function Jose D Mojica MD Performing Physician Lizandro Figueroa RT Monitor Lizette López RT Scrub Johann Tse RN Nurse Tosin Mcgrath RN Pinion And Wheel Truer Favian Ivey RN Pinion And Wheel Truer Procedure Data Cath Procedure Fluoroscopy Diagnostic fluoroscopy Total fluoroscopy Time: 4.7 time: 4.7 min min Diagnostic fluoroscopy Total fluoroscopy dose: dose: 1655 mGy 1655 mGy Contrast Material Contrast Material Type Amount (ml) Isovue 300 110 Entry Location Entry Primary Successful Side Size (Fr) Upsize Upsize Entry Closure S uccessful Closure Location 1 (Fr) 2 (Fr) Remarks Device Remarks Femoral Right 6 Fr 6 Fr Exoseal artery Mid-Length Short Estimated blood loss: 10 ml Diagnostic catheters Device Type Used For End Catheter Placement MULTIPACK Pigtail 5 Fr Procedure catheter MULTIPACK JL 4.0 5Fr Procedure catheter MULTIPACK 3DRC 5Fr Procedure catheter Procedure Complications No complications Procedure Medications Medication Administration Route Dosage 0.9% NaCl I.V. 10 ml/hr Oxygen etCO2 Nasal cannula 2 l/min Heparin Flush Bag added to field 2 bags (1000units/500ml NS) Lidocaine 2% added to field Zofran I.V. 4 mg Versed I.V. 1 mg Fentanyl I.V. 50 mcg Heparin Bolus I.V. 4000 units Plavix P.O. 75 mg Hemodynamics Rest Heart Rate: 79 (bpm) Gradients Valve Time Site Site Mean SEP/DFP Peak To Heart Use 1 2 (mmHg) (sec/min) Peak Rate (mmHg) (bpm) Aortic 10:13 LV AO Snapshots Pre Cath Intra NCS Post Cath Vital Signs Time Heart Resp SPO2 etCO2 NIBP (mmHg) Rhythm Pain Sedation Rate (ipm) (%) (mmHg) Status Level (bpm) 10:06:21 79 15 96 0 159/103(142) NSR 0 (11) 10(A) , No pain 10:10:35 80 22 96 24 152/113(137) NSR 0 (11) 10(A) , No pain 10:14:45 79 21 96 29.3 154/107(139) NSR 0 (11) 9(A) , No pain 10:18:57 78 21 100 0 169/102(145) NSR 0 (11) 9(A) , No pain 10:23:13 77 17 100 0 171/106(146) NSR 0 (11) 10(A) , No pain 10:27:31 77 13 94 0 166/102(141) NSR 0 (11) 10(A) , No pain Medications Time Medication Route Dose Verified Delivered Reason Notes Effectiveness by by 10:04:13 0.9% NaCl I.V. 10 Johann Johann Per physician ml/hr Dedrick Tse RN RN 10:04:24 Oxygen etCO2 2 Johann Johann for low 02 sats Nasal l/min Dedrick Tse cannula RN RN 10:04:35 Heparin Flush added 2 Johann Johann used for Bag to bags Dedrick Tse procedure (1000units/500ml field RN RN NS) 10:04:45 Lidocaine 2% added Johann Johann for local to Dedrick Tse anesthetic field RN RN 10:05:08 Zofran I.V. 4 mg Johann Johann for nausea Dedrick Tse RN RN 10:12:10 Versed I.V. 1 mg Johann Johann for sedation Dedrick Tse RN RN 10:12:19 Fentanyl I.V. 50 Johann Johann for sedation mcg Dedrick Tse RN RN 10:19:47 Heparin Bolus I.V. 4000 Johann Johann for units Dedrick Tse anticoagulation RN RN 10:25:39 Plavix P.O. 75 mg Johann Johann for Dedrick Tse antiplatelet RN RN therapy Procedure Log Time Note 9:22:15 Signed procedure consent form obtained from patient. 9:22:16 Diagnostic Cath status Elective 9:22:17 Time tracking: Regular hours (M-F 7:00 - 5:00) 9:22:19 Plan of Care:Hemodynamics will remain stable., Cardiac rhythm will remain stable., Comfort level will be maintained., Respiratory function will remain adequate., Patient/ family verbilizes understanding of procedure., Procedure tolerated without complication., Recovers from procedure without complications.. 9:49:13 Favian Ivey RN sent for patient. Start room use. 9:53:49 Patient received from Pre/Post Procedure Room to CCL 2 Alert and oriented. Tansferred to table in Supine position. 9:53:58 Warm blankets applied, and yani hugger turned on for patient comfort. 9:53:59 Correct patient and procedure confirmed by team. 9:54:01 ECG and BP/O2 sat monitors applied to patient. 9:58:43 H&P Date Dictated: 01/17/2019 New H&P dictated by physician.. 9:58:45 Pre-procedure instructions explained to patient. 9:58:45 Pre-op teaching completed and patient verbalized understanding. 9:58:46 Family in waiting room. 9:58:47 Patient NPO since Midnight. 9:58:56 Patient allergic to Other allergyUltram 9:58:58 Is the patient allergic to Iodine/contrast media? No. 9:58:59 Is patient on blood thinner?Yes 9:59:01 ACC The patient was administered the following blood thiners within the last 24 hours: ACCPlavix 9:59:03 Patient diabetic? No. 9:59:05 Previous problem with sedation/anesthesia? No ? 10:04:06 Snore? Yes 10:04:08 Sleep apnea? No 10:04:09 Deviated septum? No 10:04:10 Opens mouth fully? Yes 10:04:11 Sticks out tongue? Yes 10:04:13 0.9% NaCl 10 ml/hr I.V. was administered by Johann Tse RN; Per physician; 10:04:13 Airway obstruction? No ? 10:04:15 Dentures? No ? 10:04:19 If diabetic: On Metformin? No 10:04:23 Pre procedure: right dorsailis pedis pulse Doppler 10:04:24 Oxygen 2 l/min etCO2 Nasal cannula was administered by Johann Tse RN; for low 02 sats; 10:04:26 Patient pain scale 0/10 ?. 10:04:35 Heparin Flush Bag (1000units/500ml NS) 2 bags added to field was administered by Johann Tse RN; used for procedure; 10:04:41 IV patent on arrival in right forearm with 0.9% NaCl at [facility]. 10:04:45 Lidocaine 2% added to field was administered by Johann Tse RN; for local anesthetic; 10:05:08 Zofran 4 mg I.V. was administered by Johann Tse RN; for nausea; 10:05:14 Vital chart was started 10:06:32 Lab Result : Creatinine 6.8 mg/dl 10:06:32 Lab Result : BUN 37 mg/dl 10:06:32 Lab Result : Hemoglobin 11.8 g/dl 10:06:32 Lab Result : Hematocrit 35.3 % 10:06:34 Lab results completed and on chart. 10:06:36 Right groin area was prepped with chlora-prep and draped in sterile fashion 10:06:37 Alarms reviewed by R. N. 10:06:37 Sharps counted by scrub and verified by R.N. 10:06:39 Use device set Femoral Dx 10:06:40 ACIST Syringe (66574) opened to sterile field. 10:06:40 Bag Decanter (2002S) opened to sterile field. 10:06:41 Medline Cath Pack ([id number]) opened to sterile field. 10:06:42 ACIST Hand Control (54423) opened to sterile field. 10:06:42 ACIST Manifold (93608) opened to sterile field. 10:06:43 Tegaderm 4 x 4 (1626W) opened to sterile field. 10:06:44 SHEATH 5FR [place] (DXQ078) opened to sterile field. 10:06:44 DIAGNOSTIC Multipack 5Fr catheter set (CY5981) opened to sterile field. 10:06:47 DIAGNOSTIC WIRE .035 260cm J wire (451595) opened to sterile field. 10:07:39 Baseline sample Acquired. 10:09:45 Physician arrived 10:09:45 --------ALL STOP TIME OUT------ 10:09:45 Final Timeout: patient, procedure, and site verified with staff and physician. All members of the team are in agreement. 10:09:47 Right groin site verified by team. 10:11:53 Maximum allowable Isovue 300 dose 80ml. Physician notified. (300ml for normal creatinines. For patients with creatinine of 1.7 or higher multiply weight(kg) x 5 divided by creatinine.) 10:11:56 Fire Safety Assessment: A--An alcohol-based skin anteseptic being used preoperatively., C--Open oxygen or nitrous oxide is being used., D--An ESU, laser, or fiber-optic light is being used. 10:11:59 Physical assessment completed. ASA score P 2 - A patient with mild systemic disease as per Jose D Mojica MD. 10:12:02 Sedation plan: IV Moderate Sedation Medication:Versed, Fentanyl 10:12:05 Procedure started. 10:12:05 Full Disclosure recording started 10:12:08 Local anesthetic to right femoral artery with Lidocaine 2% by Jose D Mojica MD.INITIAL ACCESS ONLY 10:12:10 Versed 1 mg I.V. was administered by Johann Tse RN; for sedation; 10:12:16 SHEATH 6FR ARROW 45cm (CL-67151) opened to sterile field. 10:12:19 Fentanyl 50 mcg I.V. was administered by Johann Tse RN; for sedation; 10:12:22 SHEATH 6FR [place] (UZT246) opened to sterile field. 10:12:31 A 6 Fr Mid-Length sheath was inserted into the Right Femoral artery 10:12:36 A MULTIPACK Pigtail 5 Fr catheter was advanced over the wire and used for Procedure. 10:13:08 Catheter exchanged over wire. 10:13:13 A MULTIPACK JL 4.0 5Fr catheter was advanced over the wire and used for Procedure. 10:15:20 Catheter removed. unable to cannulate vessel. 10:15:26 GUIDE 6FR XBLAD 4.0 catheter ([id number]) opened to sterile field. 10:15:32 A MULTIPACK 3DRC 5Fr catheter was advanced over the wire and used for Procedure. 10:15:36 RCA angiography performed. 10:15:39 Catheter exchanged over wire. 10:15:49 6 Fr xblad 4 guide catheter was inserted over the wire 10:17:03 LCA angiography performed. 10:18:33 CHOICE PT Extra Support 182cm wire ([id number]) opened to sterile field. 10:18:34 INFLATOR Merit BasixCompak (VH5140) opened to sterile field. 10:19:17 choice pt es wire advanced. 10:19:38 Wire advanced across lesion. 10:19:47 Heparin Bolus 4000 units I.V. was administered by Johann Tse RN; for anticoagulation; 10:21:43 Place stent Inflation Number: 1 A INTEGRITY RX 2.5 x 22 stent ([id number]) was prepped and advanced across the Mid LAD. The stent was deployed at 19 DEANA for 0:10 (min:sec). 10:22:01 Stent catheter was removed intact over wire. 10:22:35 Wire redirected to cx. 10:23:37 Wire advanced across lesion. 10:24:01 Place stent Inflation Number: 1 A INTEGRITY RX 3.5 x 18 stent ([id number]) was prepped and advanced across the Prox CX. The stent was deployed at 15 DEANA for 0:10 (min:sec). 10:24:42 Stent catheter was removed intact over wire. 10:24:43 Wire removed. 10:24:43 Guide catheter removed. 10:24:51 Sheath upsized to a 6 Fr Short. 10:24:59 EXOSEAL 6Fr (EX600) opened to sterile field. 10:25:07 Sheath removed intact; hemostasis achieved with Exoseal to the Right Femoral artery. 10:25:09 Procedure ended.(Physican Out) 10:25:39 Plavix 75 mg P.O. was administered by Johann Tse RN; for antiplatelet therapy; 10::55 Fluoroscopy time 04.70 minutes. 10:27:01 Flurop Dose total: 1655 10:27:01 Fluoroscopy dose: 1655 mGy 10:27:04 Contrast amount:Isovue 300 110ml. 10:27:05 Sharps counted by scrub and verified by R.N. 10:27:06 Insertion/operative site no bleeding no hematoma. 10:27:08 Post-op/insertion site Right Femoral artery dressed using a 4 x 4 and Tegaderm. 10:27:19 Post right femoral artery:stable, soft, clean and dry 10:27:20 Post Procedure Pulses reassessed and unchanged 10:27:22 Post-procedure physical assessment completed. ASA score P 2 - A patient with mild systemic disease as per Jose D Mojica MD. 10:27:27 Post procedure rhythm: unchanged. 10:27:29 Estimated blood loss: 10 ml 10:27:30 Post procedure instruction explained to patient.Patient verbalizes understanding. 10:27:30 Patient needs reinforcement of post procedure teaching. 10:27:47 Procedure type changed to Cath procedure, Diagnostic procedure, LHC, LHC w/Coronaries, Sedation Charges, Moderate Sedation up to 15 minutes, PCI procedure, Coronary Stent, Coronary Stent Initial x2 10:29:26 Procedure and supply charges have been captured, reviewed, submitted and are correct. 10:29:29 Procedure Complication : No complications 10:29:31 Vital chart was stopped 10:29:32 See physician's report for complete and final results. 10:29:33 Report given to Pre/Post Procedure Room. 10:29:36 Patient transfered to Pre/Post Procedure Room with Stretcher. 10:29:37 Procedure ended. 10:29:37 Full Disclosure recording stopped 10:29:43 End room use (Document Last) Intervention Summary Intervention Notes Time ActionType Lesion and Equipment Action# Pressure Duration Attributes Used 10:21:43 Place stent Mid LAD INTEGRITY RX 1 19 00:10 2.5 x 22 stent ([id number]) 10:24:01 Place stent Prox CX INTEGRITY RX 1 15 00:10 3.5 x 18 stent ([id number]) Device Usage Item Name Manufacture Quantity Catalog Number Hospital Part Current Mini mal Lot# / Charge Number Stock Stock Serial# Code ACIST Acist 1 37743 254156 714029 217733 20 Syringe Medical (39582) Systems Inc Bag Decanter Microtek 1 2001S 058376 74861 931331 5 (2001S) Medical Inc. Medline Cath Medline 1 [id number] 242476 29109 572484 5 Pack ([id number]) ACIST Hand Acist 1 30472 474786 785679 891000 5 Control Medical (00765) Systems Inc ACIST Acist 1 21424 221069 034678 915812 5 Manifold Medical (94759) Systems Inc Tegaderm 4 x 3M 1 1626W 880602 350972 091435 5 4 (1626W) SHEATH 5FR Terumo 1 SXR879 118509 307799 348796 5 [place] (XBR136) DIAGNOSTIC Cardinal 1 OP0119 056325 50506 883558 30 Multipack Health 5Fr catheter set (JT4697) DIAGNOSTIC St [place] 1 522328 384761 232068 014758 30 WIRE .035 260cm J wire (457940) SHEATH 6FR Teleflex 1 CL-09058 789870 035496 951732 5 ARROW 45cm (CL-69071) SHEATH 6FR Terumo 1 SJS286 181174 521817 888263 40 [place] (EXD118) MULTIPACK Cardinal 1 765006 5 Pigtail 5 Fr Health catheter MULTIPACK JL Cardinal 1 022045 5 4.0 5Fr Health catheter GUIDE 6FR Cardinal 1 [id number] 283340 923146 827319 3 XBLAD 4.0 Health catheter ([id number]) MULTIPACK Cardinal 1 651163 5 3DRC 5Fr Health catheter CHOICE PT [place] 1 [id number] 869755 703772 658494 5 Extra Scientific Support 182cm wire ([id number]) INFLATOR Merit 1 RS7768 507145 699575 930138 15 Merit Medical BasixCompak (DT7759) INTEGRITY RX Medtronic 1 [id number] 840059 273110 168675 5 [id number] 2.5 x 22 stent ([id number]) INTEGRITY RX Medtronic 1 [id number] 130226 533525 352388 5 [id number] 3.5 x 18 stent ([id number]) EXOSEAL 6Fr Cardinal 1 EX600 178910 992262 675293 10 (EX600) Health Signature Audit [place] Stage Time Signature Unsigned Intra-Procedure 01/17/2019 Lizandro Figueroa 10:30:58 AM RT(R) Signatures Monitor : Lizandro Figueroa RT Signature : Date : Time : [address] [address]
--- NOTE | ~2019-01-17 | OP ---
PATIENT NAME: LEO LEUNG MEDICAL RECORD: [id number] :52 LOCATION:D.CAT ADMISSION DATE: SURGEON: VIRY NOLAN MD DATE OF OPERATION: 01/17/2019 PROCEDURES: 1. PTCA stent LAD. 2. PTCA stent left circumflex. 3. Left heart catheterization. 4. Selective coronary angiography. 5. Left ventriculogram. INDICATION: Angina and coronary artery disease. PROCEDURE IN DETAIL: After informed consent was obtained and after a detailed description of the risks, benefits as well as alternative therapies, the patient elected to proceed with angiogram and angioplasty. The right femoral area was prepped and draped in normal sterile fashion. Right femoral artery was cannulated via modified Seldinger technique with placement of 6-Austrian sheath. All catheters exchanged through this sheath. FINDINGS: Left ventriculogram was performed in standard 30-degree ARCOS view, reveals dilated cardiomyopathy, ejection fraction 15% to 20%. SELECTIVE CORONARY ANGIOGRAPHY: 1. Left main is with no significant angiographic disease. 2. Left anterior descending has 70% to 80% stenosis in the mid vessel. 3. Left circumflex had 80% stenosis in the proximal vessel. 4. Right coronary artery is chronically totally occluded. PTCA STENT OF THE LAD: The stent used was a 2.5 x 22 mm Integrity. Result was 0% residual stenosis. PTCA STENT OF THE LEFT CIRCUMFLEX: The stent used was a 3.5 x 18 mm Integrity. Result was 0% residual stenosis. OVERALL IMPRESSION: Successful PTCA stent of the LAD and circumflex, both going from 80% initial stenosis to 0% residual. TRANSINT:[id number] Voice Confirmation ID: [id number] DOCUMENT ID: [id number] VIRY NOLAN MD CC: [id number] DICTATION DATE: 01/17/19 1030 FISHING TACKLE REPAIRER: 01/17/19 1056 REG [facility] [address] [place] [address]
[~2019-01-17 07:17] MED LIST changes: +ASPIRIN325 MG PO; +ATARAX 25 MG TA25 MG PO; +ENTRESTO 49 MG1 EACH PO; +FEXOFENADINE H180 MG PO; +ZOLOFT100 MG PO
[2019-01-17] MEDS ORDERED: NITROSTAT0.4 MG SL (08:07)
[2019-01-17] MEDS ORDERED: HYDROCODON-ACE1 EAC7 PO (08:08)
[2019-01-17 08:19] VITALS: BP 156/97; Ht 193 cm; Wt 109.1 kg
[2019-01-17 08:43] LABS: BASOPHILS 0.3 % (0-2); EOSINOPHILS 2.4 % (0-7); HEMATOCRIT 35.3 % (42.0-54.0); HEMOGLOBIN 11.8 g/dL (13.5-17.5); IMMATURE GRANULOCYTES 0.3 % (0-5); MCH 35.1 pg (26.0-34.0); MCHC 33.4 g/dL (31.0-37.0); MCV 105.1 fL (80.0-100.0); MEAN PLATELET VOLUME 12.1 fL (7.4-10.4); MONOCYTES 7.8 % (2-11); NEUTROPHILS 79.2 % (40-80); PLATELET COUNT 164 10x3/uL (130-400); RBC 3.36 10x6/uL (4.20-6.10); RDW 16.4 % (11.5-14.5); WBC 7.9 10x3/uL (4.8-10.8)
[2019-01-17 08:57] LABS: ANION GAP 18.2 mmol/L (8-16); CALCIUM 9.6 mg/dL (8.5-10.1); CARBON DIOXIDE 29.9 mmol/L (21.0-32.0)
[2019-01-17 08:58] LABS: CREATININE - SERUM 6.8 mg/dL (0.6-1.3); POTASSIUM - SERUM 4.1 mmol/L (3.5-5.1)
[2019-01-17] MEDS ORDERED: PLAVIX75 MG PO (10:40)
[2019-01-17] MEDS ORDERED: BAYER CHEWABLE81 MG PO (10:40)
--- NOTE | 2019-01-17 10:47 | NUR ---
RECIEVED TO ROOM VIA STRETCHER FROM BRANCH MANAGER WITH 6 FR EXOSEAL R/GROIN CDI NO BLEEDING OR HEMATOMA NOTED. PATIENT CONNECTED TO MONITOR FOR OBSERVATINO WITH HR 77 BP 153/96. CHEST PAIN IS DENIED AND FAMILY IS AT BEDSIDE
--- NOTE | 2019-01-17 10:52 | NUR ---
6 FR EXOSEAL R/GROIN IS CDI WITH AREA SOFT TO PALPATE. R/FOOT IS WARM TO TOUCH WITH PULSES PALPABLE. PATIENT DENIED PAIN OR NEEDS CALL LIGHT IS IN REACH
--- NOTE | 2019-01-17 11:08 | NUR ---
PATIENT RESTING QUIETLY WITH RESPIRATIONS EVEN AND UNLABORED. VSS AND 6 FR EXOSEAL TO R/GROIN IS SOFT TO PALPATE.
--- NOTE | 2019-01-17 11:25 | NUR ---
PATIENT RESTING QUIETLY WITH NO DISTRESS. 6 FR EXOSEAL TO R/GROIN IS CDI NO BLEEDING OR HEMATOMA NOTED
--- NOTE | 2019-01-17 11:38 | NUR ---
PATIENT DENIED PAIN OR NEEDS. 6 FR EXOSEAL TO R/GROIN IS CDI INSTRUCTED PATIENT TO KEEP HEAD FLAT ON PILLOW WITH RLE STRAIGHT
--- NOTE | 2019-01-17 11:50 | NUR ---
PATIENT CONTINUES TO REST WITH NO DISTRESS NOTED. VSS AND 6 FR EXOSEAL TO R/GROIN IS CDI
--- NOTE | 2019-01-17 12:25 | NUR ---
PATIENT DENIED PAIN WITH 6 FR EXOSEAL TO R/GROIN CDI. TOLERATING SIPS OF WATER WITH NAUSEA DENIED
--- NOTE | 2019-01-17 13:00 | NUR ---
6 FR EXOSEAL TO R/GROIN IS CDI NO BLEEDING NOTED. PATIENT RESPONDS TO VERBAL WITH PAIN DENIED
--- NOTE | 2019-01-17 13:27 | NUR ---
PATIENT INTERMITTENTLY RESTING, VSS 2L NC. RIGHT GROIN DRESSING IS CDI, NO S/S OF BLEEDING OR HEMATOMA. NO C/O PAIN, NUMBNESS, OR TINGLING. PATIENT TOLERATING PO FLUIDS, NO N/V.
--- NOTE | 2019-01-17 13:35 | NUR ---
REPOSITIONED TO [facility] UP 30 FOR COMFORT,6 FR EXOSEAL R/GROIN IS CDI
--- NOTE | 2019-01-17 13:44 | NUR ---
HOB UP 45 DEGREES WITH 6 FR EXOSEAL R/GROIN CDI. PATIENT DENIED CHEST PAIN WITH VSS. SANDWICH AND SODA TO BEDSIDE
--- NOTE | 2019-01-17 14:07 | NUR ---
VERBAL AND WRITTEN DISCHARGE GONE OVER WITH PATIENT AND DAUGHTER. BOTH VERBALIZED UNDERSTANDING. PIV REMOVED WITH DRESSING APPLIED. 6 FR EXOSEAL TO R/GROIN REMAINS CDI PATIENT UP TO GET DRESSED FOR DISCHARGE HOME NO DISTRESS
--- NOTE | 2019-01-17 14:25 | NUR ---
PATIENT LEFT VIA WC TO [facility] FOR TRANSPORT HOME WITH DAUGHTER. NO DISTRESS AND 6 FR EXOSEAL R/GROIN IS CDI
== END 2019-01-17 14:26 | disposition home or self-care (01) ==
LOC: D.CATH 07:17
PROVIDERS: ATTEND Internal Medicine Interventional Cardiology
DX: I25.110 Atherosclerotic heart disease of native coronary artery with unstable angina pectoris (principal)

== ENCOUNTER 2019-01-19 04:20 | Inpatient (IN) | payer MEDICARE, BC, MEDICAID ==
[2019-01-19] VITALS (19 sets, daily range): BP systolic 106–195; BP diastolic 71–113; BMI 28.9; BMI 28.8
[~2019-01-19 04:20] MED LIST changes: +NITROSTAT0.4 MG SL
[2019-01-19] MEDS ORDERED: PEPCID40 MG PO (04:32)
[2019-01-19] MEDS ORDERED: ATARAX 25 MG TA25 MG PO (04:33)
[2019-01-19] MEDS ORDERED: IMODIUM2 MG PO (04:36)
[2019-01-19] MEDS ORDERED: FEXOFENADINE H180 MG PO (04:37)
[2019-01-19 04:56] LABS: HEMATOCRIT 38.1 % (42.0-54.0); HEMOGLOBIN 12.7 g/dL (13.5-17.5); MCH 34.6 pg (26.0-34.0); MCHC 33.3 g/dL (31.0-37.0); MCV 103.8 fL (80.0-100.0); MEAN PLATELET VOLUME 12.4 fL (7.4-10.4); PLATELET COUNT 165 10x3/uL (130-400); RBC 3.67 10x6/uL (4.20-6.10)
[2019-01-19 04:57] LABS: WBC 11.2 10x3/uL (4.8-10.8)
[2019-01-19 05:01] LABS: APTT 38.5 SECONDS (22.8-39.4); INR 2.75 (0.85-1.17); PROTIME 28.4 SECONDS (11.6-15.0)
[2019-01-19 05:28] LABS: ALBUMIN 3.5 g/dL (3.4-5.0); ALKALINE PHOSPHATASE 96 U/L (46-116); BILIRUBIN - TOTAL 2.62 mg/dL (0.2-1.3); CALCIUM 9.5 mg/dL (8.5-10.1); CHLORIDE - SERUM 96 mmol/L (98-107); CKMB 5.9 U/L (0.0-3.6); CREATINE KINASE 264 UL (21-232); MAGNESIUM - SERUM 2.1 mg/dL (1.8-2.4); PROTEIN - SERUM 7.2 g/dL (6.4-8.2); SODIUM 136 mmol/L (136-145)
[2019-01-19 05:38] LABS: ALT (SGPT) 4623 U/L (10-68); CALC OSMOLALITY 294 mosm/kg (275-300); CARBON DIOXIDE 21.9 mmol/L (21.0-32.0); CREATININE - SERUM 10.6 mg/dL (0.6-1.3); GLUCOSE 78 mg/dL (74-106); UREA NITROGEN 81 mg/dL (7-18); eGFR NON AFRICAN AMERICAN 5 mL/min (90-120)
[2019-01-19 05:46] LABS: POTASSIUM - SERUM 7.1 mmol/L (3.5-5.1)
[2019-01-19 05:47] LABS: TROPONIN-I 0.301 ng/mL (0.000-0.060)
--- NOTE | 2019-01-19 06:46 | NUR ---
ICU REFUSED REPORT AT THIS TIME STATED THEY WOULD HAVE TO CALL BACK .
--- NOTE | 2019-01-19 07:09 | NUR ---
VANC STOPPED RIGHT AFTER INFUSION STARTED D/T HOLD ORDER. ZOSYN 2.25MG IVPB STARTED.
--- NOTE | 2019-01-19 07:30 | NUR ---
RECEIVED PT FROM ER AT THIS TIME. HOOKED UP TO MONITOR. WILL CHECK FOR ORDERS
[2019-01-19 08:04] LABS: ANISOCYTOSIS OCC; LYMPHOCYTES 12 % (15-50); MONOCYTES 12 % (2-11); NEUTROPHILS 73 % (40-80); PLATELET ESTIMATE NORMAL
--- NOTE | 2019-01-19 08:20 | NUR ---
NOTIFIED [facility] OF CONSULT AND EKG.
--- NOTE | 2019-01-19 09:10 | NUR ---
SPOKE TO DR. NOLAN ABOUT PLAVIX DOSE, DOBUTAMINE ORDER, AND VIT K ORDER. WANTS TO GO AHEAD AND GIVE ALL OF THESE. ORDERED PROCARDIA XL 90 DAILY FOR BP
--- NOTE | 2019-01-19 09:35 | NUR ---
DIALYSIS NURSE BEGINNING DIALYSIS NOW. STARTED DOBUTAMINE DRIP AT 5MCG/KG/MIN ORDERED VIA LEFT HAND PIV. WILL CONTINUE TO MONITOR
--- NOTE | 2019-01-19 10:08 | NUR ---
STARTED NEW 20 GUAGE PIV TO RIGHT WRIST FOR VIT K INFUSION. DIALYSIS INITIATED. PT IS STABLE
--- NOTE | 2019-01-19 11:17 | NUR ---
ASSISTED TO BSC AND BACK FOR VOID. PT CLEANS SELF. APPLIED SCD'S AT THIS TIME. CALL LIGHT IN REACH. NO COMPLAINTS. VSS
[2019-01-19 11:26] LABS: CREATINE KINASE 289 UL (21-232)
--- NOTE | 2019-01-19 11:42 | NUR ---
SPOKE TO DR. GAVIRIA ABOUT BP AND DIET. ORDERS FOR RENAL DIET AND WAIT TILL AFTER DIALYSIS TO WORRY ABOUT BP. ALSO TALKED TO DR. NOLAN ABOUT INCREASED TROPONIN. STATED DONT WORRY AND TO CANCEL FUTURE CARDIAC ENZYMES
--- NOTE | 2019-01-19 12:31 | NUR ---
OBTAINED HISTORY FROM DAUGHTER. STILL RECEIVING DIALYSIS WITH VSS. CONTINUING TO MONITOR
--- NOTE | 2019-01-19 15:00 | NUR ---
PT RESTING IN BED WITH STABLE VS. CALL BHANDARI IN REACH.
--- NOTE | 2019-01-19 17:00 | NUR ---
CHANGED PATIENT LINENS AND PULLED UP IN BED. VSS. CALL BHANDARI IN REACH. NO COMPLAINTS
[2019-01-19 18:53] LABS: ALKALINE PHOSPHATASE 92 U/L (46-116); BILIRUBIN - TOTAL 2.43 mg/dL (0.2-1.3); CALCIUM 8.8 mg/dL (8.5-10.1); CARBON DIOXIDE 26.3 mmol/L (21.0-32.0); CHLORIDE - SERUM 97 mmol/L (98-107); CREATINE KINASE 243 UL (21-232); CREATININE - SERUM 8.2 mg/dL (0.6-1.3); GLUCOSE 97 mg/dL (74-106); PROTEIN - SERUM 6.5 g/dL (6.4-8.2); SODIUM 137 mmol/L (136-145); eGFR NON AFRICAN AMERICAN 7 mL/min (90-120)
[2019-01-19 18:54] LABS: ALT (SGPT) 4704 U/L (10-68); CALC OSMOLALITY 289 mosm/kg (275-300); POTASSIUM - SERUM 4.3 mmol/L (3.5-5.1); UREA NITROGEN 58 mg/dL (7-18)
--- NOTE | 2019-01-19 18:54 | MORECARE ---
CASE MANAGEMENT DISCHARGE SUMMARY PATIENT: LEO LEUNG UNIT: [id number] ADM DATE: 01/19/19 AGE: 68 : 51 SEX: M ROOM/BED: D.2314 AUTHOR: LISETTE BAZZI PHYSICIAN: REFERRING PHYSICIAN: HECTOR GAVIRIA MD DATE OF SERVICE: 01/19/19 Discharge Plan Patient Name: LEO LEUNG [facility] [facility] 1950 Planned Disposition: Home Anticipated Discharge Date: Discharge Date: Expected LOS: Initial Reviewer: [email or web address] Initial Review Date: 01/19/2019 Generated: 01/19/19 7:53 pm DCPIA - Discharge Planning Initial Assessment Updated by [email or web address]: Christina Chavis on 01/19/19 6:52 pm * Is the patient Alert and Oriented? Yes * How many steps to enter\exit or inside your home? * PCP ANA * [facility] * Preadmission Environment Home Alone * ADLs Independent * Other Equipment WALKER, CANE * List name and contact numbers for known caregivers / representatives who currently or will assist patient after discharge: PETE Rea [facility]- [phone] * Verbal permission to speak to the caregivers and representatives has been obtained from the patient. Yes * Community resources currently utilized None * Please name any agencies selected above. HEMODIALYSIS - MWF - [facility] * Additional services required to return to the preadmission environment? No * Can the patient safely return to the preadmission environment? Yes * Has this patient been hospitalized within the prior 30 days at any hospital? No Patient Name: LEO LEUNG Page [id number] at 1854 All edits/amendments must be made on the electronic document DICTATION DATE: 01/19/191852 ASSISTANT COACH: MORRIS 01/19/191852 RPT#: [id number] DC DATE: STATUS: ADM IN [facility] [address] [place] [address] END OF REPORT
--- NOTE | 2019-01-19 19:01 | MORECARE ---
CASE MANAGEMENT DISCHARGE SUMMARY PATIENT: LEO LEUNG UNIT: [id number] ADM DATE: 01/19/19 AGE: 68 : 51 SEX: M ROOM/BED: D.2314 AUTHOR: ROSE MARYDOC PHYSICIAN: REFERRING PHYSICIAN: HECTOR GAVIRIA MD DATE OF SERVICE: 01/19/19 Discharge Plan Patient Name: LEO LEUNG Facility: [facility]:[place] : 1950 Planned Disposition: Home Anticipated Discharge Date: Discharge Date: Expected LOS: Initial Reviewer: [email or web address] Initial Review Date: 01/19/2019 Generated: 01/19/19 8:01 pm Comments DCP- Discharge Planning Updated by [email or web address]: Christina Chavis on 01/19/19 5:[address] Patient Name: LEO LEUNG Admission Status: ER Accout number: [id number] Admission Date: 01-19-2019 : 1950 Admission Diagnosis:ACUTE AND SUBACUTE HEPATIC FAILURE WITHOUT COMA Attending: HECTOR GAVIRIA Current LOS: 1 Anticipated DC Date: Planned Disposition: Home Primary Insurance: MEDICARE A & B Discharge Planning Comments: CM met with patient at bedside. Patient states he lives at home alone. plans to return to their home upon discharge. Will need to monitor to see if this is a safe discharge home alone. Patient has hemodialysis MWF @ [facility] @ 0630. CM will continue to follow and assist as needed with discharge planning / needs. Clinical Radiologist: Christina Chavis DCPIA - Discharge Planning Initial Assessment Updated by [email or web address]: Christina Chavis on 01/19/19 6:52 pm * Is the patient Alert and Oriented? Yes * How many steps to enter\exit or inside your home? * PCP ANA * [facility]acy [facility] * Preadmission Environment Home Alone * ADLs Independent * Other Equipment WALKER, CANE * List name and contact numbers for known caregivers / representatives who currently or will assist patient after discharge: PETE ACOSTA - [facility]- [phone] * Verbal permission to speak to the caregivers and representatives has been obtained from the patient. Yes * Community resources currently utilized None * Please name any agencies selected above. HEMODIALYSIS - MWF - [facility] * Additional services required to return to the preadmission environment? No * Can the patient safely return to the preadmission environment? Yes * Has this patient been hospitalized within the prior 30 days at any hospital? No Last DP export: 01/19/19 5:53 p Patient Name: LEO LEUNG Page [phone] at 1901 All edits/amendments must be made on the electronic document DICTATION DATE: 01/19/191900 CLINICAL REHABILITATION SPECIALIST: MORRIS 01/19/191900 RPT#: [id number] DC DATE: STATUS: ADM IN [facility] [address] [place] [address] END OF REPORT
[2019-01-19 19:24] LABS: CKMB 6.7 U/L (0.0-3.6)
[2019-01-19 22:43] LABS: CKMB 5.8 U/L (0.0-3.6); CREATINE KINASE 213 UL (21-232); TROPONIN-I 0.323 ng/mL (0.000-0.060)
[2019-01-20] VITALS (26 sets, daily range): BP systolic 76–142; BP diastolic 52–81
--- NOTE | 2019-01-20 00:20 | NUR ---
PT RESTING IN BED. EYES CLOSED. NO SIGNS OF DISTRESS. BREATHING EVEN AND UNLABORED. CALL LIGHT IN REACH. BED LOWERED AND LOCKED. WILL COTNINUE PLAN OF CARE.
--- NOTE | 2019-01-20 03:36 | NUR ---
PT RESTING IN BED. EYES CLOSED. NO SIGNS OF DISTRESS. BREATHING EVEN AND UNLABORED. CALL LIGHT IN REACH. WILL CONTINUE PLAN OF CARE.
--- NOTE | 2019-01-20 04:34 | NUR ---
PT PULLED OUT IV. RESITED NEW IV TO LT FA ATTEMPTS X4. PT TOLERATED WELL. IV FLUIDS RESTARTED. WILL CONTINUE PLAN OF CARE.
[2019-01-20 07:21] LABS: BASOPHILS 0.1 % (0-2); EOSINOPHILS 1.9 % (0-7); HEMATOCRIT 35.1 % (42.0-54.0); HEMOGLOBIN 12.2 g/dL (13.5-17.5); IMMATURE GRANULOCYTES 0.3 % (0-5); LYMPHOCYTES 8.5 % (15-50); MCH 34.9 pg (26.0-34.0); MCHC 34.8 g/dL (31.0-37.0); MEAN PLATELET VOLUME 11.7 fL (7.4-10.4); MONOCYTES 3.8 % (2-11); NEUTROPHILS 85.4 % (40-80); RDW 15.3 % (11.5-14.5)
[2019-01-20 07:26] LABS: INR 2.33 (0.85-1.17); PROTIME 24.8 SECONDS (11.6-15.0)
[2019-01-20 07:30] LABS: ALBUMIN 2.8 g/dL (3.4-5.0); ANION GAP 17.8 mmol/L (8-16); BILIRUBIN - TOTAL 2.22 mg/dL (0.2-1.3); CALCIUM 8.7 mg/dL (8.5-10.1); CARBON DIOXIDE 26.5 mmol/L (21.0-32.0); CREATININE - SERUM 9.6 mg/dL (0.6-1.3); POTASSIUM - SERUM 4.3 mmol/L (3.5-5.1); PROTEIN - SERUM 6.2 g/dL (6.4-8.2)
[2019-01-20 07:39] LABS: MCV 100.3 fL (80.0-100.0); PLATELET COUNT 130 10x3/uL (130-400); WBC 7.3 10x3/uL (4.8-10.8)
--- NOTE | 2019-01-20 09:08 | NUR ---
PETE A FRIEND OF THE PATIENT IS IN THE ROOM VISITING. WILL GET H2O FOR OXYGEN. PATIENT CO WEARING THE OXYGEN. WCTM
--- NOTE | 2019-01-20 10:15 | NUR ---
PATIENT RESTING. REPLACED OXYGEN TUBING BACK ON PATIENT. [facility]
--- NOTE | 2019-01-20 11:59 | NUR ---
NUTRITION F/U DIET ADVANCED TO RENAL. NURSING REPORTS NO INTAKE BREAKFAST THIS AM. WILL PROVIDE DIET, MONITOR PO INTAKE. RD FOLLOWING
--- NOTE | 2019-01-20 12:00 | NUR ---
DAUGHTER CALLED TO CHECK IN. GAVE HER AN UPDATE ON HIS STATUS. TM
--- NOTE | 2019-01-20 13:30 | NUR ---
FAMILY IN ROOM. KEEPING AN EYE ON THE BP. HE WANTS TO GET UP OUT OF BED HOWEVER WITH THE JERKINESS AND INABILITY TO FEED HIMSELF I DO NOT FEEL THIS WOULD BE SAFE. SAYS HE WILL LEAVE O2 ON. GOWN HAS BEEN CHANGED. WCTM
--- NOTE | 2019-01-20 15:12 | NUR ---
PATIENT ASLEEP. SCD'S ON. NO FURTHER NEEDS AT THIS TIME
--- NOTE | 2019-01-20 17:45 | NUR ---
FAMILY FRIEND IN ROOM. PATIENT DENIES ANY NEEDS. WILL CONTINUE TO MONITOR
--- NOTE | 2019-01-20 19:00 | NUR ---
REPORT RECEIVED INITIAL ASSESSMENT COMPLETE. PT CONFUSED. CONFUSED ABOUT PLACE TIME AND SITUATION. RESP EVEN AND NONLABORED O2 OFF PER REPORT PT PULLS OFF CONSTANTLY WITH CONFUSION. CM READING SR WITH ALARMS ON AND AUDIBLE. ABD SOFT AND NONTENDER ABD SOFT. NO THEODORE PER REPORT PT ANURIC ESRD. LEFT ARM FISTULA WITH +T+B. SKIN W/D PPP. BED LOW BED ALARM ON SIDE RAILS UP TIMES 3 FOER SAFETY AND BED MOBILITY.
--- NOTE | 2019-01-20 22:00 | NUR ---
PT TRYING TO GET OOB YELLING I HAVE TO USE BATHROOM. INFORMED PT THAT HE WAS IN ICU AND SITUATION WITH B/P AND DIALYSIS IN PROCESS PLACED ON BED HAMPTON
--- NOTE | 2019-01-20 22:40 | NUR ---
PT HAS HAD GAS BUT NO BM SKIN INTACT NO REDNESS TO BOTTOM
--- NOTE | 2019-01-20 23:00 | NUR ---
REASSESSMENT MADE DIALYSIS IN PROGRESS.
[2019-01-21] VITALS (23 sets, daily range): BP systolic 96–132; BP diastolic 49–100
--- NOTE | 2019-01-21 | NUR ---
DIALYSIS COMPLETE 1 LITER REMOVED. PT C/O PAIN TO ALL OVER RESTLESS MEDICATED WITH PRN MED SEE EMAR. AT TIMES PT IS LETHARGIC AND THEN TIMES OF PULLING LEADS AND LINES OFF HAS NC OFF AT THIS TIME. REORIENTED AND NC BACK ON WITH O2 SAT 90-96% WHILE ON WHEN HE TAKES OFF HE IS [id number].
--- NOTE | 2019-01-21 00:30 | NUR ---
PT SLEEPING WELL SNORING VSS NOT RESTLESS PRN MED EFFECTIVE. BLOOD PRESSURE 90-120'S DOBUTAMINE CONTINUES AT RATE OF 5 MCG.
--- NOTE | 2019-01-21 03:00 | NUR ---
PT RESTING WITH EYES CLOSED SNORING REASSESSMENT MADE SEE FLOWSHEET.
--- NOTE | 2019-01-21 04:00 | NUR ---
BED ALARMING INTO ROOM PT HAS THROWN LEGS OVER SIDE RAILS AND BM RUNNING DOWN LEGS, COVERED BED AND ON SIDERAILS LIQUID LIGHT BLACK. BACK IN BED AND COMPLETE BATH LINEN CHANGE GIVEN. PT HAD PULLED EGG LEAD WIRES AND TORN WIRES IN HALF NEW EKG PADS AND NEW SCD WHICH WERE ALSO SOILED
--- NOTE | 2019-01-21 04:04 | NUR ---
PT HAS BEEN BELCHING BUT NOW STATES "I AM GONNA BE SICK" MEDICATED WITH PRN MED ONDANSETRON FOR NAUSEA.
--- NOTE | 2019-01-21 04:30 | NUR ---
LAB HERE FOR AM LABS. PT MUCH MORE ALERT AND ORIENTED STATES "WELL YOU CAN NOT DRAW FROM MY LEFT ARM I HAVE A FISTULA FOR DIALYSIS".
--- NOTE | 2019-01-21 04:45 | NUR ---
REASSESSMENT OF ONDANSETRON FOR NAUSEA DENIES FEELING SICK NOW MED EFFECTIVE
[2019-01-21 05:12] LABS: HEPATITIS C ANTIBODY <0.1 (0.0-0.9)
--- NOTE | 2019-01-21 05:30 | NUR ---
ANGELINE AYALA RENAL MINER HELPER HERE ROUNDING INFORMED PT DOES NOT HAVE LABS ORDERED THIS AM OTHER THAN A [employer] TEACHER HERE TO DRAW THAT SHE ORDERED ADDITIONAL LABS. PT PULLED AGAINST THE STICK SHE WAS ONLY ABLE TO GET A SMALL AMOUNT STATES SHE WILL COME BACK TO ATTEMPT AGAIN
[2019-01-21 05:47] LABS: ALBUMIN 2.7 g/dL (3.4-5.0); ANION GAP 17.7 mmol/L (8-16); BILIRUBIN - DIRECT 1.55 mg/dL (0.00-0.30); BILIRUBIN - INDIRECT 0.86 mg/dL (0.00-1.00); BILIRUBIN - TOTAL 2.41 mg/dL (0.2-1.3); CALCIUM 8.6 mg/dL (8.5-10.1); CARBON DIOXIDE 26.2 mmol/L (21.0-32.0); CREATININE - SERUM 8.2 mg/dL (0.6-1.3); POTASSIUM - SERUM 3.9 mmol/L (3.5-5.1); PROTEIN - SERUM 6.1 g/dL (6.4-8.2); VANCOMYCIN - RANDOM 8.4 ug/mL (10.0-20.0)
--- NOTE | 2019-01-21 07:00 | NUR ---
REC;ED REPORT FROM OUT GOING RN - PT RESTING WITH EYES CLOSED - EASITLY AWAKEND BY TACTILE STIMULI
--- NOTE | 2019-01-21 08:00 | NUR ---
ASSESSMENT COMPLETE - SEE FLOW SHEET - CPOC
[2019-01-21 08:46] LABS: BASOPHILS 0.1 % (0-2); EOSINOPHILS 2.5 % (0-7); HEMATOCRIT 35.5 % (42.0-54.0); HEMOGLOBIN 12.4 g/dL (13.5-17.5); IMMATURE GRANULOCYTES 0.4 % (0-5); LYMPHOCYTES 6.2 % (15-50); MCH 34.7 pg (26.0-34.0); MCHC 34.9 g/dL (31.0-37.0); MCV 99.4 fL (80.0-100.0); MEAN PLATELET VOLUME 11.3 fL (7.4-10.4); MONOCYTES 6.3 % (2-11); NEUTROPHILS 84.5 % (40-80); PLATELET COUNT 144 10x3/uL (130-400); RBC 3.57 10x6/uL (4.20-6.10); RDW 15.1 % (11.5-14.5); WBC 8.1 10x3/uL (4.8-10.8)
--- NOTE | 2019-01-21 09:00 | NUR ---
DR. LIU AND DR RADFORD AT BEDSIDE FOR ASSESSMENT
--- NOTE | 2019-01-21 10:45 | NUR ---
DISCUSSED PLAN OF CARE WITH DR. RADFORD - CPOC
--- NOTE | 2019-01-21 11:45 | NUR ---
PLACED PT ON BED HAMPTON - CPOC
--- NOTE | 2019-01-21 12:00 | NUR ---
STOOL SAMPLE TAKEN TO LAB PER ORDER - CPOC
--- NOTE | 2019-01-21 12:20 | NUR ---
PLACED PT ON BED HAMPTON - CPOC
--- NOTE | 2019-01-21 12:50 | NUR ---
TOOK PT OFF BED HAMPTON - NO STOOL - PT DECLINIED LUNCH TRAY - CPOC
--- NOTE | 2019-01-21 13:42 | NUR ---
PT RESTING WITH EYES CLOSED - RESPRIATIONS REG RATE AND RHYTHM - CPOC
--- NOTE | 2019-01-21 15:30 | NUR ---
PT PULLED ALL LINES OUT - INCLUDING IV - REMOVED IV WITH TIP IN TACT - REPLACED IN RIGHT HAND (4 STICKS). CPOC
--- NOTE | 2019-01-21 16:30 | NUR ---
FAMILY FRIEND AT BEDSIDE ANSWERED ALL QUESITONS TO HER SATISFACTION - PATIENT RESPONDED TO VISITOR APPROPIRATELY - CPOC
--- NOTE | 2019-01-21 18:20 | NUR ---
PLACED PT ON BED HAMPTON - PT NO STOOLS - CPOC
--- NOTE | 2019-01-21 18:46 | NUR ---
PLACED POX ON PT - PT CLEARER IN THINKING AT THIS TIME - CPOC
--- NOTE | 2019-01-21 19:00 | NUR ---
REPORT RECEIVED INITIAL ASSESSMENT COMPLETE PT ALERT NOT CONFUSED LAST PM SHIFT. HE IS ORIENTED TO PERSON PLACE LITTLE CONFUSED ABOUT TIME AND SITUATION. HAS HAD LARGE LIQUID LIGHT BROWN STOOL COMPLETE BATH AND LINEN CHANGED PT ABLE TO TURN INDEPENDENTLY TO ASSIST IN THE PROCESS. SKIN INTACT. PPP. CM ON READING SR WITH PACER SPIKES ALARMS ON AND AUDIBLE. RESP EVEN AND NONLABORED O2 PER NC 2 LPM WITH SATS 94%. ABD SOFT NONTENDER BOWEL SOUNDS ACTIVE. RIGHT FOREARM PIV PATENT WITH DOBUTAMINE INFUSING PER ORDER AT 5 MCG. LEFT ARM FISTULA DRESSING CDI WITH +T+B. BED IN LOW POSITION SIDE RAILS UP TIMES 3 FOR SAFETY AND BED MOBILITY. CALL LIGHT IN REACH BED ALARM ON.
--- NOTE | 2019-01-21 20:40 | NUR ---
PT C/O GENERALIZED PAIN ALL OVER FROM UNCOMFORTABLE BED. MEDICATED WITH PRN BUPRINEX
--- NOTE | 2019-01-21 21:00 | NUR ---
FAMILY/FRIENDS HERE FOR VISITATION PT AWAKE ALERT AND TALKING WITH THEM UPDATE GIVEN. VSS AT THIS TIME DENIES PAIN OR DISCOMFORT
--- NOTE | 2019-01-21 21:15 | NUR ---
PT DENIES PAIN. PRN PAIN MEDICATION WAS AFFECTIVE
--- NOTE | 2019-01-21 23:00 | NUR ---
REASSESSMENT MADE PT RESTING AWAKENS EASILY FOLLOWS COMMANDS ORIENTED AT THIS TIME DENIES PAIN OR DISCOMFORT RESP EVEN AND NONLABORED O2 SAT 94%, PT ABLE TO [id number] SELF
[2019-01-22] VITALS (24 sets, daily range): BP systolic 105–143; BP diastolic 37–95
--- NOTE | 2019-01-22 00:53 | NUR ---
PLEASE NOTE: 01/22/19 ICU SHIFT ASSESSMENT WAS COMPLETED AND CHARTED BUT DATE/TIME INCORRECT. PLEASE SEE ICU SHIFT ASSESSMENT THAT IS STAMPED OF OCDURRING 01/22/19 AT 0053 AND STAMPED RECORDED 01/23/19 AT 0107. UNABLE TO EDIT TIME/DATE. SO ICU SHIFT ASSESSMENT FOR 01/22/19 AT 1900 IS DONE AND CHARTED
--- NOTE | 2019-01-22 03:00 | NUR ---
REASSESSMENT COMPLETE NO CHANGES PT RESTNG QUIETLY WITH EYES CLOSED. DENIES PAIN DISCOMFORT OR NEEDS. ENCOURAGED TO REPOSTION FOR PRESSURE RELIEF
[2019-01-22 04:36] LABS: HEMOGLOBIN 12.8 g/dL (13.5-17.5); LYMPHOCYTES 7.9 % (15-50); MCHC 35.6 g/dL (31.0-37.0); MCV 101.1 fL (80.0-100.0); MEAN PLATELET VOLUME 10.9 fL (7.4-10.4); NEUTROPHILS 83.5 % (40-80); PLATELET COUNT 137 10x3/uL (130-400); RBC 3.56 10x6/uL (4.20-6.10); WBC 6.5 10x3/uL (4.8-10.8)
[2019-01-22 04:44] LABS: ANION GAP 17.4 mmol/L (8-16); CALCIUM 8.8 mg/dL (8.5-10.1); CARBON DIOXIDE 26.3 mmol/L (21.0-32.0); CREATININE - SERUM 9.4 mg/dL (0.6-1.3); POTASSIUM - SERUM 3.7 mmol/L (3.5-5.1); VANCOMYCIN - RANDOM 16.2 ug/mL (10.0-20.0)
--- NOTE | 2019-01-22 06:15 | NUR ---
PT REQUESTING BED HAMPTON LARGE LIQUID LIGHT BLACK STOOL
--- NOTE | 2019-01-22 10:03 | NUR ---
GOT VERBAL PERMISSION FROM DAUGHTER FOR CENTERAL LINE -ANSWERED ALL QUESTIONS TO FAMILY'S SATISFACTION - DR. NELSY ERNANDEZ TO DO SO - VERIFIED BY SOLAR SALES REPRESENTATIVE AND ASSESSOR -
--- NOTE | 2019-01-22 10:32 | NUR ---
DR. WHITTINGTON PLACED CENTERAL LINE - CXR ORDERED AND VERIFIED PLACEMENT - MAY USE PER DR. WHITTINGTON. CPOC
--- NOTE | 2019-01-22 11:25 | NUR ---
DR. LIU AT BEDSIDE FOR ASSESSMENT - NO NEW ORDERS - CPOC AND REPORT FINDINGS
--- NOTE | 2019-01-22 11:40 | NUR ---
MEDIATIONS GIVEN - SEE MAR -
--- NOTE | 2019-01-22 12:01 | NUR ---
GAVE PATIENT LUNCH TRAY - PT AA&O X3 (NOT TO TIME) - CPOC
--- NOTE | 2019-01-22 12:40 | NUR ---
MEDICATIONS GIVEN - SEE FLOW SHEET
--- NOTE | 2019-01-22 14:20 | NUR ---
PLACED PT ON BED HAMPTON - LIQUID FROTHY CHUNKY STOOL - PT ABLE TO MOVE ALL EXT - CPOC
--- NOTE | 2019-01-22 14:58 | NUR ---
TOOK STOOL CULTURE TO LAB - AWAITING RESULTS
--- NOTE | 2019-01-22 15:02 | NUR ---
PT REQUESTED A DIET SODA - PT DRANK THEN CLOSED EYES TO REST - CPOC
--- NOTE | 2019-01-22 16:00 | NUR ---
I&O COMPLETE - SEE FLOW SHEET
--- NOTE | 2019-01-22 16:26 | NUR ---
ASKED PT IF HE WANTED OFF BED HAMPTON - PT DECLINIED TO COME OFF BED HAMPTON - 'JUST A LITTLE LONGER' - PT RESTING WITH EYES CLOSED - MONITOR AND REPORT FINDINGS
--- NOTE | 2019-01-22 18:07 | NUR ---
PT RESTING WITH EYES CLOSED - RESPIRATIONS REG RATE AND RHYTHM - VSS - EASILY AWAKENED BY TACTILE STIMULI - CPOC
--- NOTE | 2019-01-22 19:00 | NUR ---
REPORT RECEIVED AND INITIAL ASSESSMENT COMPLETED, HOWEVER THE DATE/TIME ARE INCORRECT. FOR INITIAL ICU ASSESSMENT THE ASSESSMENT FLOWSHEET IS UNDER DATE/TIME 01/22/19 AT 0053. ASSESSMENT IS COMPLETE AND CHARTED BUT I WAS UNABLE TO EDIT TIME DATE. PT IS LETHARGIC SNORING WITH EYES CLOSED. AWAKENS EASILY TO VERBAL STIMULI. DISORIENTED NOT SURE WHERE HE IS OR WHATS GOING ON. REORIENTED TO TIME DATE AND SITUATION. RESP EVEN AND NONLABORED WITH O2 PER NC AT 2LPM WITH O2 SAT 98%. PT DOES FALL ASLEEP MID CONVERSATION. PERIODS OF SLEEP APNEA ALSO NOTED WILL PASS ALONG IN REPORT IN AM TO ONCOMING SHIFT. CM READING SR WITH PACER ALARMS ON AND AUDIBLE/ ON DOBUTAMINE FOR RENAL PROFUSION ABLE TO TITRATE IF MAP BELOW 70. RIGHT TLSC WAS PLACED THIS AM. RIGHT ARM WITH DEPENDENT EDEMA AND REDNESS NOTED TO UNDERSIDE OF RIGHT MID ARM TO ELBOW. PER REPORT PTS PIV WHICH WAS ON RIGHT INNER FOREARM INFILTRATED 01/21/19 WITH SUBSEQUENT D/C CATHLON INTACT AND RESITED TO RIGHT HAND. PT VERY DIFFICULT TO GET PIV AND HAS FISTULA TO LEFT ARM THEREFORE TLSC WAS PLACED TODAY
--- NOTE | 2019-01-22 23:00 | NUR ---
REASSESSMENT MADE CPOC SEE FLOWSHEETS NO CHANGES. PT HAS REQUESTED BED HAMPTON FOR STOOL. DENIES PAIN DOES HAVE TO BE REORIENTED OFTEN. BED LOW POSITION SIDE RAILS UP TIMES 3 FOR SAFETY AND BED MOBILITY CALL LIGHT IN REACH.
[2019-01-23] VITALS (22 sets, daily range): BP systolic 95–153; BP diastolic 44–86
--- NOTE | 2019-01-23 02:00 | NUR ---
YPT REQUESTING BED HAMPTON MODERATE LIQUID LIGHT BLACK BM
--- NOTE | 2019-01-23 03:00 | NUR ---
REASSESSMENT MADE NO CHANGES REPOSITIONED FOR COMFORT
[2019-01-23 03:57] LABS: BASOPHILS 0.1 % (0-2); EOSINOPHILS 3.4 % (0-7); HEMATOCRIT 33.7 % (42.0-54.0); IMMATURE GRANULOCYTES 0.4 % (0-5); LYMPHOCYTES 4.2 % (15-50); MCH 34.9 pg (26.0-34.0); MCHC 35.6 g/dL (31.0-37.0); MEAN PLATELET VOLUME 11.1 fL (7.4-10.4); MONOCYTES 11.7 % (2-11); NEUTROPHILS 80.2 % (40-80); PLATELET COUNT 147 10x3/uL (130-400); RBC 3.44 10x6/uL (4.20-6.10); RDW 15.4 % (11.5-14.5); WBC 7.8 10x3/uL (4.8-10.8)
[2019-01-23 04:08] LABS: ANION GAP 21.8 mmol/L (8-16); CALCIUM 8.8 mg/dL (8.5-10.1); CARBON DIOXIDE 22.2 mmol/L (21.0-32.0)
--- NOTE | 2019-01-23 07:00 | NUR ---
SHIFT ASSESSMENT COMPLETED, PT CARE ASSUMED, MONITORS ON AND WORKING, VITALS STABLE, PT AWAKE, SITTING UP IN BED, NO SIGNS/SYMPTOMS OF PAIN OR DISCOMFORT NOTED AT THIS TIME, SEE FLOW SHEET FOR FURTHER DETIALS. WILL CONTINUE TO OBSERVE.
--- NOTE | 2019-01-23 07:53 | NUR ---
REASSESSMENT MADE NO CHANGES CPOC REPOSITIONED FOR COMFORT
--- NOTE | 2019-01-23 09:00 | NUR ---
PT SITTING UP IN BED EATING BREAKFAST, MONITORS ON AND WORKING, VITALS STABLE, CALL LIGHT WITHIN REACH, WILL CONTINUE TO OBSERVE.
--- NOTE | 2019-01-23 09:55 | NUR ---
NUTRITION F/U PT CURRENTLY SLEEPING. TOLERATING RENAL DIET. WILL CONTINUE TO PROVIDE DIET, MONITOR PT PROGRESS. RD FOLLOWING
--- NOTE | 2019-01-23 11:00 | NUR ---
HD NURSE AT BEDSIDE, MONITORS ON AND WORKING, VITALS STABLE, DAUGHTER CALLED FOR UPDATE, PASSWORD CONFIRMED AND UPDATE PROVIDED, SEE FLOW SHEET FOR FURTHER DETAILS. WILL CONTINUE TO OBSERVE.
--- NOTE | 2019-01-23 13:00 | NUR ---
HD AT BEDSIDE, PT REMAINS CONFUSED/DISORIENTED. MONITORS ON AND WORKING, VITALS STABLE, WILL CONTINUE TO OBSERVE.
--- NOTE | 2019-01-23 14:00 | NUR ---
PT CONTINUES TO BECOME INCREASINGLY CONFUSED AFTER SEVERAL ATTEMPTS TO RE ORIENT, PT CONTINUES TO ATTEMPT TO PULL OUT LINES, CLIMB OUT OF BED, KICK, HIT ETC.
--- NOTE | 2019-01-23 15:00 | NUR ---
PT CLEANED FROM LARGE BM, COMPLETE LINEN CHANGE DONE AT THIS TIME, PT WAS VERY UNCOOPERATIVE, CONTINUES TO TRY TO CLIMB OUT OF BED AND PULL OUT LINES.
--- NOTE | 2019-01-23 16:00 | NUR ---
PT PLACED IN SOFT L&R WRIST RESTRAINTS DESPITE SEVERAL ATTEMPTS FROM MULTIPLE NURSING STAFF TO REORIENTATE, MONITORS ON AND WORKING, VITALS STABLE, NO SIGNS/SYMPTOMS OF PAIN OR DISCOMFORT NOTED AT THIS TIME, WILL CONTINUE TO OBSERVE.
--- NOTE | 2019-01-23 16:00 | NUR ---
MD NOTIFIED, SOFT RIGHT WRIST RESTRAINT PLACED ON PT, ALEXEI BED ORDERED. MONITORS ON AND WORKING, VITALS STABLE, NO SIGNS/SYMPTOMS OF PAIN OR DISCOMFORT NOTED AT THIS TIME. CALL LIGHT WITHIN REACH, WILL CONTINUE TO OBSERVE.
--- NOTE | 2019-01-23 17:00 | NUR ---
NO CHANGES, MONITORS ON AND WORKING, WILL CONTINUE TO OBSERVE.
--- NOTE | 2019-01-23 18:00 | NUR ---
PT RESTING COMFORTABLY, R SOFT WRIST RESTRAINT DC'D. PT APPEARS TO BE IN CALM AND MORE COOPERATIVE MOOD. CALL LIGHT WITHIN REACH, WILL CONTINUE TO OBSERVE
--- NOTE | 2019-01-23 19:33 | NUR ---
BEDSIDE SHIFT REPORT GIVEN BY DEPARTING RN. PT LAYING IN BED ASLEEP. CONFUSED. REPEATS NEEDS UNTIL NEEDS MET. RT SUBCLAVIAN CENTRAL LINE IN PLACE AND SALINE LOCKED. DENIES ANY PAIN AT THIS TIME. PERRLA. ASSESSMENT COMPLETE. SEE FLOWSHEET FOR DETAILS. DENIES ANY NEEDS AT THIS MOMENT. WILL CONTINUE TO MONITOR.
--- NOTE | 2019-01-23 20:17 | NUR ---
DAUGHTER PHONED FOR UPDATE. PASSWORD GIVEN. UPDATE GIVEN. ALL QUESTIONS ANSWERED. PT CLIMBING OUT OF BED, PLACED DAUGHTER ON HOLD. PT STATED HE COULD NOT FIND HIS PHONE AND THAT IT RANG. PHONED FOUND UNDERNEATH PT. CALMED DOWN AND TRIED TO MAKE A PHONE CALL WHILE SIMULTANEOUSLY FALLING ASLEEP AND DROPPING PHONE. DAUGHTER UPDATED ON RECENT ACTIVITY. SHE STATED SHE CALLED PT BEFORE CALLING NURSING STATION AND PT DID NOT ANSWER PHONE CALL. DAUGHTER REQUESTED TO CALL PT ON CELL PHONE. PT ANSWERED PHONE WITH HELP OF NURSE. PT CONTENT. WILL CONTINUE TO MONITOR.
--- NOTE | 2019-01-23 21:11 | NUR ---
YELLED OUT FOR NURSE. ASKED FOR BED HAMPTON. PLACED. BLACK LIQUID BM NOTED IN BED HAMPTON. ROLLED SELF TO ASSIST NURSE. TOLERATED WELL.
--- NOTE | 2019-01-23 23:03 | NUR ---
ASLEEP SNORING AUDIBLY. REASSESSMENT COMPLETE. VSS. NO CHANGES NOTED IN PT CONDITION. SAFETY MEASURES IN PLACE. CBIR.
[2019-01-24] VITALS (14 sets, daily range): BP systolic 147–177; BP diastolic 70–98
--- NOTE | 2019-01-24 01:49 | NUR ---
BM NOTED IN BED. THICK, BLACK BM NOTED. COMPLETE BED BATH GIVEN USING HIBICLENS SOLUTION. ORAL CARE PROVIDED. EUSEBIA CARE PERFORMED. SCD'S REPLACED. BP CUFF REPLACED. HAIR SHAMPOOED AND BRUSHED. TOLERATED WELL. WARM BLANKETS APPLIED AFTER BATH. VSS.
--- NOTE | 2019-01-24 02:00 | NUR ---
ALL PREVIOUS VITALS SIGNS DISAPPEARED WHEN ELECTRICITY FLICKERED T/O HOSPITAL. ALL PREVIOUS VSS.
--- NOTE | 2019-01-24 03:36 | NUR ---
REASSESSMENT COMPLETE. NO NEW CHANGES AT THIS TIME. ASLEEP SHOWING NO SS OF DISTRESS. BED HAMPTON REQUESTED. SMALL AMOUNT OF BLACK LIQUID NOTED IN BED HAMPTON. TOLERATED WELL. SAFETY MEASURES IN PLACE. CBIR.
--- NOTE | 2019-01-24 04:42 | NUR ---
ASLEEP SNORING AUDIBLY FROM NURSING STATION. REPOSITIONS SELF. SAFETY MEASURES IN PLACE. CBIR.
[2019-01-24 04:56] LABS: BASOPHILS 0.1 % (0-2); EOSINOPHILS 4.2 % (0-7); HEMATOCRIT 34.9 % (42.0-54.0); HEMOGLOBIN 12.2 g/dL (13.5-17.5); IMMATURE GRANULOCYTES 0.3 % (0-5); LYMPHOCYTES 6.9 % (15-50); MCH 34.2 pg (26.0-34.0); MCV 97.8 fL (80.0-100.0); MEAN PLATELET VOLUME 11.5 fL (7.4-10.4); MONOCYTES 11.1 % (2-11); NEUTROPHILS 77.4 % (40-80); PLATELET COUNT 134 10x3/uL (130-400); RBC 3.57 10x6/uL (4.20-6.10); RDW 15.3 % (11.5-14.5)
[2019-01-24 05:03] LABS: INR 1.4 (0.85-1.17); PROTIME 16.6 SECONDS (11.6-15.0)
[2019-01-24 06:11] LABS: ALBUMIN 2.9 g/dL (3.4-5.0); BILIRUBIN - DIRECT 3.66 mg/dL (0.00-0.30); BILIRUBIN - INDIRECT 0.9 mg/dL (0.00-1.00); BILIRUBIN - TOTAL 4.56 mg/dL (0.2-1.3); CALCIUM 8.8 mg/dL (8.5-10.1); CREATININE - SERUM 9.3 mg/dL (0.6-1.3); PHOSPHOROUS 6.3 mg/dL (2.5-4.9); POTASSIUM - SERUM 3.7 mmol/L (3.5-5.1); PROTEIN - SERUM 5.9 g/dL (6.4-8.2); THYROID STIMULATING HORMONE 6.27 uIU/mL (0.36-3.74); VANCOMYCIN - RANDOM 19.2 ug/mL (10.0-20.0)
[2019-01-24 06:22] LABS: ANION GAP 13.2 mmol/L (8-16); CARBON DIOXIDE 29.5 mmol/L (21.0-32.0)
--- NOTE | 2019-01-24 06:49 | NUR ---
DAUGHTER PHONED FOR UPDATE. PASSWORD GIVEN. UPDATE GIVEN. ALL QUESTIONS ANSWERED.
--- NOTE | 2019-01-24 07:00 | NUR ---
REPORT RECEIVED FROM OCCUPATIONAL HEALTH NURSE SUPERVISOR AND PATIENT CARE ASSUMED. PATIENT AWAKE AND PLEASANTLY CONFUSED. VSS. PATIENT WITH BROWN LIQUID STOOL. PATIENT CLEANED AND LINEN CHANGED. PATIENT DENIES ANY NEEDS OR PAIN. WILL CONTINUE WITH PLAN OF CARE.
--- NOTE | 2019-01-24 09:30 | NUR ---
ASSESSMENT COMPLETED. PATIENT IS STABLE AND VSS. PATIENT DENIES ANY NEEDS OR PAIN. WILL CONTINUE TO MONITOR. SR UP X 2 BED IN LOW POSITION AND CALL LIGHT IN REACH.
--- NOTE | 2019-01-24 09:41 | NUR ---
PATIENT URINATED AND HAD LIQUID STOOL. PATIENT CLEANED AND REPOSITIONED FOR COMFORT. FAMILY AT BS. WILL CONTINUE TO MONITOR.
--- NOTE | 2019-01-24 14:00 | NUR ---
PATIENT HAD LQUID BROWN STOOL. PATIENT CLEANED AND GOWN CHAGED. WILL CONT TO MONITOR.
--- NOTE | 2019-01-24 14:00 | NUR ---
CALLED DR VENTURA. PATIENT BP CONTINUES TO ELEVATE. NEW ORDER RECIEVED FOR AMLODIPINE 5MG PO BID. MEDICATED PATIENT PER ORDER. WILL CONTINUE TO MONITOR.
--- NOTE | 2019-01-24 15:15 | NUR ---
PATIENT HAD KLARGE LIQUID BROWN STOOL WITH URINE. PATIENT CLEANED AND GOWN CHANGED. WILL CONTINUE TO MONITOR.
--- NOTE | 2019-01-24 17:30 | NUR ---
PATIENT HAD BROWN LIQUID STOOL. PATIENT CLEANED AND GOWN CHANGED. WILL CONTINUE TO MONITOR.
--- NOTE | 2019-01-24 18:15 | NUR ---
PATIENT HAD BROWN LIQUID STOOL. PATIENT CLEANED AND GOWN CHANGED.
--- NOTE | 2019-01-24 20:16 | NUR ---
PT USED CALL LIGHT TO ALERT NURSE. BM NOTED. PT CONCERNED OVER FREQUENT BMS. EDUCATION PROVIDED ON MEDICATION THERAPY ADN NECCESITY. VERBALIZED UNDERSTANDING. SCROTUM RED AND RAW. BARRIER CREAM APPLIED.
--- NOTE | 2019-01-24 20:27 | NUR ---
FAMILY AT BEDSIDE.
--- NOTE | 2019-01-24 23:39 | NUR ---
PT USED CALL LIGHT TO ALERT NURSE HE HAD A BM. LINENS CHANGED. EUSEBIA ARE COATED WITH BARRIER CREAM.
[2019-01-25 03:00] VITALS: BP 163/72
--- NOTE | 2019-01-25 03:07 | NUR ---
PT CLIMBING OUT OF BED. PULLED EKG LEADS OFF AND BP CUFF. BM IN BED LINENS. HIBICLENS BATH GIVEN. LINENS CHANGED. BARRIER CREAM APPLIED. REPLACED EKG LEADS AND EMILY CUFF. ASKED PT WHERE HE WAS GOING. HE REPLIED "HONEY, I HAVE TO DO SOMETHING. I CAN'T JUST SIT HERE AND DO NOTHING." REORIENTED. EDUCATED ON FALL PRECAUTIONS. VERBALIZES UNDERSTANDING. BED ALARM ON. SAFETY MEASURES IN PLACE. CBIR.
--- NOTE | 2019-01-25 05:16 | NUR ---
LAYING IN BED SNORING. VSS. NO SS OF DISTRESS.
[2019-01-25 06:12] LABS: BASOPHILS 0.1 % (0-2); EOSINOPHILS 3.6 % (0-7); HEMATOCRIT 33.6 % (42.0-54.0); HEMOGLOBIN 11.9 g/dL (13.5-17.5); IMMATURE GRANULOCYTES 0.5 % (0-5); LYMPHOCYTES 3.2 % (15-50); MCH 34.7 pg (26.0-34.0); MCHC 35.4 g/dL (31.0-37.0); MEAN PLATELET VOLUME 11.8 fL (7.4-10.4); MONOCYTES 11.1 % (2-11); NEUTROPHILS 81.5 % (40-80); PLATELET COUNT 134 10x3/uL (130-400); RBC 3.43 10x6/uL (4.20-6.10); RDW 15.7 % (11.5-14.5)
[2019-01-25 06:25] LABS: WBC 8.8 10x3/uL (4.8-10.8)
[2019-01-25 06:29] LABS: ANION GAP 19.1 mmol/L (8-16); CARBON DIOXIDE 23.8 mmol/L (21.0-32.0); CREATININE - SERUM 11.4 mg/dL (0.6-1.3); POTASSIUM - SERUM 3.9 mmol/L (3.5-5.1)
[2019-01-25 07:00] VITALS: BP 182/87
[2019-01-25 08:40] LABS: BILIRUBIN - DIRECT 4.4 mg/dL (0.00-0.30); BILIRUBIN - INDIRECT 1.41 mg/dL (0.00-1.00); BILIRUBIN - TOTAL 5.81 mg/dL (0.2-1.3); PROTEIN - SERUM 6.2 g/dL (6.4-8.2)
--- NOTE | 2019-01-25 09:07 | NUR ---
0700 PT RECIEVED ALERT, OREINTED TO PERSON ONLY, REORIENTED EASILY, ON ROOM AIR, R SUBCLAVIAN CVL DRESSING CDI, SL, LFA FISTULA WITH THRILL AND BRUIT PRESENT 0800 ATE 50% BREAKFAST, TOOK AM MEDS 0900 SPOKE WITH REBEL IN PHARMACY, AWAITING ZITHROMAX.
--- NOTE | 2019-01-25 10:26 | NUR ---
PT TRANSFERRED TO DIALYSIS WITH DIALYSIS NURSE
--- NOTE | 2019-01-25 10:39 | CN ---
PATIENT NAME:LEO PEREZ MEDICAL RECORD: [id number] : 52 LOCATION:[id number] ADMIT DATE: 01/19/19 ACCOUNT: [id number] CONSULTING PHYSICIAN: VIRY NOLAN MD REFERRING PHYSICIAN: HECTOR GAVIRIA MD DATE OF CONSULTATION: 01/19/2019 DIAGNOSES: 1. Ischemic cardiomyopathy, ejection fraction 10% to 15%. 2. Coronary artery disease. 3. Recent PTCA and stent, LAD and circumflex. 4. End-stage renal failure, on dialysis. 5. Hypertension. HISTORY: Mr. Perez presents with shortness of breath. He recently presented with chest pain and shortness of breath, underwent 2-vessel PTCA and stent. He did not get any Plavix filled. It was 3 days without Plavix. He had no acute changes on his EKG. His troponin was mildly elevated, but he is in renal failure and does have the ejection fraction in 10% to 15% range. He does have passive congestion of his liver secondary to the cardiomyopathy and his liver enzymes are markedly abnormal as well. He is undergoing dialysis. PHYSICAL EXAMINATION: GENERAL APPEARANCE: Well-nourished, well-developed, appears stated age. Level of distress, comfortable. PSYCHIATRIC: Mental status, alert, normal affect. Orientation, oriented to time, place and person. EYES: Lids and conjunctiva, noninjected. No discharge, no pallor. ENT: Lips, teeth, gums, normal dentition. Oropharynx, no cyanosis, no pallor. NECK: Carotid arteries, bilateral normal upstroke, no bruits, no thrills. JUGULAR VEINS: No jugular venous pressure or distention. CERVICAL LYMPH NODES: Nontender, nonenlarged. THYROID: Not enlarged. Nontender. No nodules. LUNGS: Respiratory effort, unlabored. CHEST: Normal curvature. No thoracic deformity. No chest wall tenderness. Percussion, resonant. Auscultation, clear. No wheezes, no rales, no rhonchi. CARDIOVASCULAR: Precordial exam, nondisplaced. No heaves or pericardial thrills. Rate and rhythm, regular. Heart sounds, normal S1, normal S2. No S3, no gallop, no rub. Systolic murmur, not heard. Diastolic murmur, not heard. EXTREMITIES: No cyanosis, no edema. Peripheral pulses, full and equal in all extremities, except as noted. No bruits appreciated. ABDOMEN: Soft, nondistended. Normal aorta. No bruit. Nontender. No masses. Liver, nontender, no hepatomegaly. Spleen, nontender, no splenomegaly. MUSCULOSKELETAL: No joint tenderness. No joint swelling. No erythema. NEUROLOGICAL: Normal gait, normal strength, normal tone. SKIN: Warm and dry. OVERALL IMPRESSION: End-stage cardiomyopathy. We will add dobutamine to his medical regimen. This will help the passive congestion and allow him to be dialyzed. We will use Procardia-XL for blood pressure control as well. We can use hydralazine and other vasodilatory agents for the blood pressure. His heart rate is 60s-70s. We will avoid beta blockade due to that. TRANSINT:[id number] Voice Confirmation ID: [id number] DOCUMENT ID: [id number] CONSULT REPORT [id number] LEO PEREZ, VIRY CASTELLON at 1039 CC: [id number] DICTATION DATE: 01/19/19 1147 WIRE PHOTO OPERATOR: 01/19/19 1525 ADM IN [facility] [address] [id number]
--- NOTE | 2019-01-25 12:22 | NUR ---
NUTRITION F/U PT CURRENTLY OOR TO HD. WILL PROVIDE RENAL ADA DIET, MONITOR PT PROGRESS. RD FOLLOWING
--- NOTE | 2019-01-25 14:27 | NUR ---
1415 PT RETURNED FROM DIALYSIS, PAGED DR VENTURA FOR BP 180/93, PT AMBULATED WITH PT
--- NOTE | 2019-01-25 14:35 | NUR ---
RECIEVED CALL FROM DR VENTURA, ORDERS FOR PROCARDIA XL 30MG X1 DOSE NOW
[2019-01-25 15:00] VITALS: BP 163/82
--- NOTE | 2019-01-25 16:05 | NUR ---
CVL DRESSING CHANGED PER PROTOCOL
--- NOTE | 2019-01-25 16:28 | NUR ---
REPORT CALLED TO DARLING AND PT TRANSFERRED TO 2128
--- NOTE | 2019-01-25 16:41 | NUR ---
NEW PATIENT TRANSFER FROM ICU. PATIENT IS STABLE AND VSS. PATIENT ORIENTED TO ROOM AND CALL LIGHT LIGHT. PATIENT IS AWAKE, ALERT AND ORIENTED X 3. PATIENT DENIES ANY NEEDS OR PAIN. WILL CONTINUE TO MONITOR. SR UP X 2 BED IN LOW POSTION AND CALL LIGHT IN REACH.
--- NOTE | 2019-01-25 19:10 | NUR ---
PT RESTING IN BED. ALERT AND ORIENTED X3 STATES YEAR IS 1988 REORIENTED TO CORRECT YEAR. PLACED NAME AND DATE ON BOARD. BEDLOW AND CALL LIGHT IN REACH. BED ALARM ON AND ACTIVE. WILL CPOC
--- NOTE | 2019-01-25 21:10 | NUR ---
PT IS AAO, UP WITH ASSIST. ALARM ON AND ACTIVE. NURSE HUNG A RESERVE LEFT ARM SIGN FOR LEFT FOREARM AVF. BRUIT AND THRILL NOTED. PT HAS A RIGHT SUBCLAVIAN CVL. SWAB CABS ON AND DRSG CDI. S1S2 RRR, EVERETTE'S NOTE SAID MED 2 TODAY WITH TELEMETRY. PLACED TELEMETRY ON PT. PT HAS PERIODS OF CONFUSION. NOURISHMENT WITHIN REACH. WILL CPOC
[2019-01-25 21:21] VITALS: BP 148/73
--- NOTE | 2019-01-25 22:46 | NUR ---
PT FELL ON THE WAY BACK FROM RESTROOM. DID NOT PULL EMERGENCY ALARM. WHEN NURSE CHECKED ON PT HE WAS SITTING IN FLOOR. STATED HE JUST DECIDED TO SIT DOWN. PT DENIES HITTING HEAD. NO VISIBLE BRUISES OR ABRASIONS OBSERVED. CALLED WRITER AND UPDATED REGARDING FALL. CALLED ATTENDING DOCTOR TO UPDATE. WILL CHECK VITALS. PT HAS NO CHANGE IN ORIENTATION. PT ALARM ON AND ACTIVE. VERBALIZED UNDERSTANDING TO CALL FOR ASSIST. BEDLOW AND CALL LIGHT INREACH. WILL CPOC
--- NOTE | 2019-01-25 22:54 | NUR ---
SILVIANO MORILLO FROM RENAL REGARDING FALL
--- NOTE | 2019-01-25 23:00 | NUR ---
VITALS 97.7 128/70 HR 62 RR 18 97% ROOM AIR.
--- NOTE | 2019-01-25 23:01 | NUR ---
SPOKE WITH YISEL REGARDING PT FALL. NO ORDERS RECEIVED AT THIS TIME. WILL CPOC
[2019-01-26] VITALS (7 sets, daily range): BP systolic 128–168; BP diastolic 64–74
--- NOTE | 2019-01-26 01:52 | NUR ---
ALARM WENT OFF. CHECKED ON PT AND HE STATED HE WAS JUST GETTING READY TO PUT BLANKET ON HIM. I REMINDED PT THAT HE FELL AND THAT HE MUST CALL FOR ASSIST TO PREVENT ANY MORE FALLS. PT STATES YES I KNOW I FELL. I FORGOT TO CALL. NURSE STATED THATS WHY BED ALARM IS ON JUST INCASE PT FORGETS. ASSISTED PT WITH REPOSISTIONING IN BED. CALL LIGHT IN REACH. ALARM ON AND ACTIVE. WILL CPOC
--- NOTE | 2019-01-26 04:32 | NUR ---
PT ASLEEP. RESP EVEN AND UNLABORED. PT HAS ALARM ON AND ACTIVE. NO S/S OF DISTRESS. WILL CPOC
--- NOTE | 2019-01-26 04:42 | NUR ---
LABS DRAWN FROM RIGHT SUB CVL. MORNING SYNTHROID GIVEN. PT WILL CALL FOR ASSIST AT TIMES. PT IS AAO TO NAME AND , YEAR HE STATED 1918 AND SAID OH WAIT THATS BACKWARDS. PT BEDLOW AND CALL LIGHT IN REACH. ALARM ON AND ACTIVE. WILL CPOC
[2019-01-26 05:17] LABS: BASOPHILS 0.1 % (0-2); EOSINOPHILS 2.6 % (0-7); HEMATOCRIT 35.6 % (42.0-54.0); HEMOGLOBIN 12.8 g/dL (13.5-17.5); IMMATURE GRANULOCYTES 0.3 % (0-5); LYMPHOCYTES 3.8 % (15-50); MCH 35.3 pg (26.0-34.0); MCV 98.1 fL (80.0-100.0); MEAN PLATELET VOLUME 11.5 fL (7.4-10.4); MONOCYTES 10.6 % (2-11); NEUTROPHILS 82.6 % (40-80); PLATELET COUNT 117 10x3/uL (130-400); RBC 3.63 10x6/uL (4.20-6.10); RDW 15.9 % (11.5-14.5); WBC 10.2 10x3/uL (4.8-10.8)
[2019-01-26 05:36] LABS: ALBUMIN 3.1 g/dL (3.4-5.0); ANION GAP 15.5 mmol/L (8-16); BILIRUBIN - DIRECT 5.04 mg/dL (0.00-0.30); BILIRUBIN - INDIRECT 1.61 mg/dL (0.00-1.00); BILIRUBIN - TOTAL 6.65 mg/dL (0.2-1.3); CALCIUM 9.1 mg/dL (8.5-10.1); CREATININE - SERUM 9.2 mg/dL (0.6-1.3); POTASSIUM - SERUM 3.5 mmol/L (3.5-5.1); PROTEIN - SERUM 6.6 g/dL (6.4-8.2)
--- NOTE | 2019-01-26 07:13 | NUR ---
CALLED PETE Ricketts THE FAMILY TO UPDATE ABOUT THE FALL PT HAD LAST NIGHT. NO ANSWER. LEFT A VOICEMAIL TO CALL BACK. REPORTED TO NEXT NURSE AND LATOYA.
--- NOTE | 2019-01-26 08:00 | NUR ---
PT RESTING IN BED EATING BREAKFAST, PT REQUEST TO GO TO BATHROOM. ASSISTED PT TO BATHROOM AND BACK TO BED, MOSTLY STEADY GAIT. PT A&OX4, PLEASANT MOOD. INSTRUCTED PT TO USE CALL LIGHT WHEN HE NEEDED TO USE THE BATHROOM SINCE HE FELL LAST NIGHT. PT AGREES. AM MEDICATIONS GIVEN ORDERED. CALL LIGHT WITHIN REACH, ALEXEI ALARM IN PLACE AND TESTED. DENIES ANY PAIN AT THIS TIME, DENIES ANY OTHER NEEDS AT THIS TIME, WILL CONT TO FOLLOW POC
--- NOTE | 2019-01-26 13:41 | NUR ---
Nutrition follow-up: Pt just out of ICU Diet: Renal lactose free PO intake 50-75% of meals Labs reivewed Wt: 225# RDN following.
--- NOTE | 2019-01-26 16:12 | NUR ---
PT WOULD LIKE TO GET OOB AND WALK. SPOKE WITH PHYSICAL THERAPY AND WAS GIVEN OK TO WALK PT AROUND NURSES STATION WITH WALKER. PT ABULATED TO END OF ONE MENDEZ AND WALKED BACK TO HIS ROOM WITH THE WALKER. STEADY GAIT. ASSISTED PT BACK TO BED. ALEXEI ALARM ON AND TESTED. CALL LIGHT WITHIN REACH, WILL CONT TO FOLLOW POC
--- NOTE | 2019-01-26 19:19 | NUR ---
PT LAYING ON RIGHT SIDE. TURNED BED ALARM ON R/T FALL LAST NIGHT. WAS TOLD IN REPORT PT IS MORE ALERT, HAS CALLED TO GET UP TO RESTROOM EACH TIME TODAY. VISITORS STATED PT MORE ALERT. PT AROUSES TO NURSE IN ROOM. DENIES ANY NEEDS. NO S/S OF DISTRESS. PT BEDLOW AND CALL LIGHT IN REACH. NAME AND DATE PLACE ON BOARD. WILL CPOC
--- NOTE | 2019-01-26 20:34 | NUR ---
ASSESSMENT COMPLETE. PT IS AAO, SPOKE WITH PT ABOUT PLACING BEDALARM ON DUE TO FALL LAST NIGHT AND THE NEED FOR CALLING NURSE TO GET ASSIST TO GET UP. PT VERBALIZED UNDERSTANDING. BED LOW AND ALARM IS ON AND ACTIVE. LEFT FOREARM AVF BRUIT AND THRILL NOTED. RIGHT SUB CVL PATENT WITH DRSG CDI. SWAB CABS ON. PT HAS NOURISHMENT IN REACH. S1S2 WITH RRR LUNGS CLEAR WITH SOME RHONCI UPPER LOBES. PT WILL CALL FOR ASSIST WHEN NEEDED. WILL CPOC
--- NOTE | 2019-01-27 00:38 | NUR ---
PT ASLEEP. REPS EVEN AND UNLABORED. BEDLOW AND CALL LIGHT IN REACH. ALARM ON AND ACTIVE. WILL CPOC
[2019-01-27 00:54] VITALS: BP 143/56
--- NOTE | 2019-01-27 02:08 | NUR ---
PT ASLEEP. LAYING ON BACK/RIGHT SIDE. NO S/S OF DISTRESS. RESP EVEN AND UNLABORED. WILL CPOC
[2019-01-27 05:23] VITALS: BP 178/94
--- NOTE | 2019-01-27 06:24 | NUR ---
MORNING SYNTHROID GIVEN LABS DRAWN FROM CENTRAL LINE. PT DENIES ANY NEEDS. NOURISHMENT PROVIDED. PT WILL CALL FOR ASSIST WHEN NEEDED. BED ALARM ON AND ACTIVE. CALL LIGHT IN REACH. WILL CPOC
[2019-01-27 06:55] LABS: BASOPHILS 0.2 % (0-2); EOSINOPHILS 3.7 % (0-7); HEMATOCRIT 34.3 % (42.0-54.0); HEMOGLOBIN 12.1 g/dL (13.5-17.5); IMMATURE GRANULOCYTES 0.4 % (0-5); MCH 34.6 pg (26.0-34.0); MCHC 35.3 g/dL (31.0-37.0); MEAN PLATELET VOLUME 12.3 fL (7.4-10.4); MONOCYTES 14.8 % (2-11); NEUTROPHILS 74.9 % (40-80); PLATELET COUNT 113 10x3/uL (130-400); RDW 15.9 % (11.5-14.5); WBC 9.7 10x3/uL (4.8-10.8)
[2019-01-27 07:14] LABS: ALBUMIN 2.9 g/dL (3.4-5.0); ANION GAP 16.7 mmol/L (8-16); BILIRUBIN - DIRECT 3.29 mg/dL (0.00-0.30); BILIRUBIN - INDIRECT 1.28 mg/dL (0.00-1.00); BILIRUBIN - TOTAL 4.57 mg/dL (0.2-1.3); CALCIUM 9.1 mg/dL (8.5-10.1); CARBON DIOXIDE 25.8 mmol/L (21.0-32.0); CREATININE - SERUM 11.3 mg/dL (0.6-1.3); PHOSPHOROUS 7.3 mg/dL (2.5-4.9); POTASSIUM - SERUM 3.5 mmol/L (3.5-5.1); PROTEIN - SERUM 6.6 g/dL (6.4-8.2)
--- NOTE | 2019-01-27 07:38 | NUR ---
PT AWAKE AND ORIENTED. REQUESTS A SHOWER TODAY, WOULD LIKE BEFORE DIAYLYSIS. NO OTHER COMPLAINTS/CONCERNS VOICED AT THIS TIME.
[2019-01-27 09:30] VITALS: BP 156/80
--- NOTE | 2019-01-27 10:38 | NUR ---
I have reviewed this patient and I concur with the Shift Assessment completed by the Licensed Practical Nurse today this shift.
--- NOTE | 2019-01-27 14:57 | NUR ---
PT BACK FROM DIAYLISIS. NO COMPLAINTS/CONCERNS AT THIS TIME. CL IN REACH, SRX2.
[2019-01-27 16:00] VITALS: BP 123/58
--- NOTE | 2019-01-27 17:28 | NUR ---
PT AWAKE AND ORIENTED. EATING SUPPER. PICKED GLASSES OUT OF FLOOR AND PLACED ON DESK. THEY WERE UNBROKEN. NO COMPLAINTS OR CONCERNS VOICED AT THIS TIME. NO FAMILY AT BEDSIDE. CL IN REACH. SRX2.
[2019-01-27 20:00] VITALS: BP 145/67
--- NOTE | 2019-01-27 20:47 | NUR ---
INITIAL ROUNDS COMPLETED AT 1910 HRS. PT DENEID ANY DISCOMFORT. ALERT AND ORIENTED TO PERSON, PLACE AND TIME. PEARSON. RTLSC SL. LUNGS DIMINISHED IN BASES BILAT. PT SLIGHTLY JAUNDICED. DRESSING TO R GROIN CLEAN, DRY AND INTACT. SR UP X2,CALL LIGHT WITHIN REACH.
--- NOTE | 2019-01-27 22:52 | NUR ---
PT RESTING WITH EYES CLOSED. RESP EVEN AND REGULAR. SR UP X2, CALL LIGHT WITHIN REACH.
--- NOTE | 2019-01-28 00:17 | NUR ---
PT RESTING WITH EYES CLOSED. RESP EVEN AND REGULAR. SR UP X2, CALL LIGHT WITHIN REACH.
--- NOTE | 2019-01-28 01:54 | NUR ---
PT RESTING WITH EYES CLOSED. RESP EVEN AND REAGULAR. SR UP X2, CALL LIGHT WITHIN REACH.
--- NOTE | 2019-01-28 04:25 | NUR ---
PT RESTING WITH EYES CLOSED. RESP EVEN AND REGULAR. SR UP X2,CALL LIGHT WITHIN REACH.
[2019-01-28 04:32] VITALS: BP 144/84
[2019-01-28 05:03] LABS: BASOPHILS 0.2 % (0-2); HEMATOCRIT 36.5 % (42.0-54.0); HEMOGLOBIN 12.8 g/dL (13.5-17.5); IMMATURE GRANULOCYTES 0.4 % (0-5); LYMPHOCYTES 7.3 % (15-50); MCH 34.7 pg (26.0-34.0); MCHC 35.1 g/dL (31.0-37.0); MCV 98.9 fL (80.0-100.0); MEAN PLATELET VOLUME 12.4 fL (7.4-10.4); MONOCYTES 15.1 % (2-11); PLATELET COUNT 117 10x3/uL (130-400); RBC 3.69 10x6/uL (4.20-6.10)
[2019-01-28 05:13] LABS: ANION GAP 18.7 mmol/L (8-16); CALCIUM 8.8 mg/dL (8.5-10.1); CARBON DIOXIDE 24.7 mmol/L (21.0-32.0); CREATININE - SERUM 9.8 mg/dL (0.6-1.3); POTASSIUM - SERUM 3.4 mmol/L (3.5-5.1)
--- NOTE | 2019-01-28 05:48 | NUR ---
VSS THROUGHOUT NIGHT. SR PER CM. PT DENIED ANY DISCOMFORT. NEEDS MET; WILL CONTINUE TO MONITOR.
--- NOTE | 2019-01-28 06:55 | NUR ---
PT RESTING COMFORTABLY IN BED, RESP EVEN AND NONLABORED ON RA. RT SUBCLAVIAN IV SL WITH BIOPATCH IN PLACE, AND SWAB CAPS ON. MONITOR SHOWING SR 68. PT DENIES ANY NEEDS AT THIS TIME. CALL LIGHT IN REACH, NAD NOTED, WILL CONTINUE PLAN OF CARE.
--- NOTE | 2019-01-28 08:10 | NUR ---
AM MEDS GIVEN AT THIS TIME. PT EATING BREAKFAST, DNEIES ANY NEEDS AT THIS TIME. CALL LIGHT IN REACH, NAD NOTED, WILL CONTINUE TO MONITOR.
[2019-01-28 08:44] VITALS: BP 138/76
[2019-01-28] MEDS ORDERED: PROCARDIA XL PO (10:26)
[2019-01-28] MEDS ORDERED: FLORAJEN3 CAPS460 MG PO (10:28)
--- NOTE | 2019-01-28 12:12 | NUR ---
PROVIDED VERBAL AND WRITTEN DISCHARGE TEACHING TO PT AND PT'S DAUGHTER BOTH VERBALIZED UNDERSTANDING REGARDING TEACHING. D/C RT SUBCLAVIAN IV WITH CATHETER TIP INTACT. APPLIED PRESSURE FOR 5MIN AND HAD PT LAT AT 30 DEGREES FOR 5MIN. PT LEFT UNIT VIA WHEELCHAIR, WITH ALL BELLONGIGNS. ACCOMPANIED BY DAUGHTER, NAD NOTED.
--- NOTE | 2019-01-30 09:06 | MORECARE ---
CASE MANAGEMENT DISCHARGE SUMMARY PATIENT: LEO LEUNG UNIT: [id number] ADM DATE: 01/19/19 AGE: 68 : 51 SEX: M ROOM/BED: D.6668 AUTHOR: ROSE MARY,DOC PHYSICIAN: REFERRING PHYSICIAN: HECTOR GAVIRIA MD DATE OF SERVICE: 01/30/19 Discharge Plan Patient Name: LEO LEUNG Facility: [facility]:[place] : 1950 Planned Disposition: Home Anticipated Discharge Date: 01/28/19 Discharge Date: 01/28/2019 Expected LOS: 9 Initial Reviewer: [email or web address] Initial Review Date: 01/19/2019 Generated: 01/30/19 10:06 am DCP- Discharge Planning Updated by [email or web address]: Christina Chavis on 01/19/19 5:[address] Patient Name: LEO LEUNG Admission Status: ER Accout number: [id number] Admission Date: 01-19-2019 : 1950 Admission Diagnosis:ACUTE AND SUBACUTE HEPATIC FAILURE WITHOUT COMA Attending: HECTOR GAVIRIA Current LOS: 1 Anticipated DC Date: Planned Disposition: Home Primary Insurance: MEDICARE A & B Discharge Planning Comments: CM met with patient at bedside. Patient states he lives at home alone. plans to return to their home upon discharge. Will need to monitor to see if this is a safe discharge home alone. Patient has hemodialysis MWF @ [facility] @ 0630. CM will continue to follow and assist as needed with discharge planning / needs. Administrative Assistant Receptionist: Christina Chavis DCPIA - Discharge Planning Initial Assessment Updated by [email or web address]: Christina Chavis on 01/19/19 6:52 pm * Is the patient Alert and Oriented? Yes * How many steps to enter\exit or inside your home? * PCP ANA * [facility]acy [facility] * Preadmission Environment Home Alone * ADLs Independent * Other Equipment WALKER, CANE * List name and contact numbers for known caregivers / representatives who currently or will assist patient after discharge: PETE ACOSTA - [facility]- [phone] * Verbal permission to speak to the caregivers and representatives has been obtained from the patient. Yes * Community resources currently utilized None * Please name any agencies selected above. HEMODIALYSIS - MWF - [facility] * Additional services required to return to the preadmission environment? No * Can the patient safely return to the preadmission environment? Yes * Has this patient been hospitalized within the prior 30 days at any hospital? No Last DP export: 01/19/19 6:01 p Patient Name: LEO LEUNG Page 14029 at 0906 All edits/amendments must be made on the electronic document DICTATION DATE: 01/30/19904 AUTO EMISSIONS TECHNICIAN: MORRIS 01/30/19904 RPT#: [id number] DC DATE:01/28/19 STATUS: DIS IN [facility] [address] [place] [address] END OF REPORT
== END 2019-01-28 12:56 | disposition home or self-care (01) | DRG 441 ==
LOC: D.ER 04:20 → D.ICU 06:40 → D.M2 06:40
PROVIDERS: Family Medicine; Internal Medicine Gastroenterology; Internal Medicine Nephrology; ADMIT Internal Medicine Nephrology; ATTEND Internal Medicine Nephrology
PROC: 5A1D70Z Performance of Urinary Filtration, Intermittent, Less than 6 Hours Per Day (ICD-10-PCS; 2019-01-19)
PROC: 05H533Z Insertion of Infusion Device into Right Subclavian Vein, Percutaneous Approach (ICD-10-PCS; principal; 2019-01-22)
DX: K72.00 Acute and subacute hepatic failure without coma (principal); N18.6 End stage renal disease; I13.2 Hypertensive heart and chronic kidney disease with heart failure and with stage 5 chronic kidney disease, or end stage renal disease; I25.10 Atherosclerotic heart disease of native coronary artery without angina pectoris; E87.5 Hyperkalemia; Z99.2 Dependence on renal dialysis; J44.9 Chronic obstructive pulmonary disease, unspecified; K21.9 Gastro-esophageal reflux disease without esophagitis; K52.9 Noninfective gastroenteritis and colitis, unspecified; I50.9 Heart failure, unspecified

== ENCOUNTER 2019-04-21 14:04 | Inpatient (IN) | payer MEDICARE, BC, MEDICAID ==
[~2019-04-21] VITALS: Ht 193 cm; Wt 104.6 kg
[2019-04-21] VITALS (17 sets, daily range): BP systolic 87–123; BP diastolic 60–91; BMI 28.0
[~2019-04-21 14:04] MED LIST changes: +FLORAJEN3 CAPS460 MG PO; +IMODIUM2 MG PO; +PROCARDIA XL PO
--- NOTE | 2019-04-21 14:32 | NUR ---
CARDIAC ARREST, SEE CODE BLUE PAPER CHARTING
--- NOTE | 2019-04-21 14:40 | NUR ---
ROSC. PT A/O X3. SKIN W/D/P. C/O ABD PAIN. VSS. RESP EVEN/UNLABORED.
--- NOTE | 2019-04-21 14:58 | NUR ---
BP 97/63 (79) DR GILLIS NOTIFIED.
[2019-04-21 15:08] LABS: BASOPHILS 0.3 % (0-2); EOSINOPHILS 0 % (0-7); HEMATOCRIT 46.8 % (42.0-54.0); HEMOGLOBIN 16.2 g/dL (13.5-17.5); IMMATURE GRANULOCYTES 1.1 % (0-5); LYMPHOCYTES 18.3 % (15-50); MCH 35.8 pg (26.0-34.0); MCHC 34.6 g/dL (31.0-37.0); MCV 103.3 fL (80.0-100.0); MEAN PLATELET VOLUME 12.5 fL (7.4-10.4); MONOCYTES 6.1 % (2-11); NEUTROPHILS 74.2 % (40-80); PLATELET COUNT 127 10x3/uL (130-400); RBC 4.53 10x6/uL (4.20-6.10); RDW 16.6 % (11.5-14.5); WBC 3.8 10x3/uL (4.8-10.8)
--- NOTE | 2019-04-21 15:20 | NUR ---
UNABLE TO OBTAIN AUTO BP. NO RADIAL PULSES. BP 88 PALPABLE MD NOTIFIED
[2019-04-21 15:26] LABS: APTT 30.9 SECONDS (22.8-39.4); INR 1.44 (0.85-1.17)
[2019-04-21 15:32] LABS: ALBUMIN 3.8 g/dL (3.4-5.0); ALKALINE PHOSPHATASE 74 U/L (46-116); ALT (SGPT) 81 U/L (10-68); BILIRUBIN - TOTAL 1.63 mg/dL (0.2-1.3); CALC OSMOLALITY 292 mosm/kg (275-300); CALCIUM 9.5 mg/dL (8.5-10.1); CARBON DIOXIDE 20.4 mmol/L (21.0-32.0); CHLORIDE - SERUM 94 mmol/L (98-107); CREATININE - SERUM 9.1 mg/dL (0.6-1.3); GLUCOSE 142 mg/dL (74-106); POTASSIUM - SERUM 4.9 mmol/L (3.5-5.1); PROTEIN - SERUM 7.4 g/dL (6.4-8.2); SODIUM 137 mmol/L (136-145); UREA NITROGEN 61 mg/dL (7-18); eGFR NON AFRICAN AMERICAN 6 mL/min (90-120)
--- NOTE | 2019-04-21 15:38 | NUR ---
BP 92/65 (74)
[2019-04-21 15:50] LABS: CKMB 4.4 U/L (0.0-3.6); CREATINE KINASE 100 UL (21-232); MAGNESIUM - SERUM 2.2 mg/dL (1.8-2.4)
--- NOTE | 2019-04-21 15:50 | NUR ---
TO CT VIA STRETCHER WITH CM, O2 AND RN. BP= 98/63 (61) A/OX3, TALKATIVE, SKIN W/D/P 1555: HR 58 78/50 (60) A/OX3 1600: HR 58 82/53 (62) 1605: HR 58 82/51 (60) REMAINS A/OX3 ANDF TALKATIVE. SKIN W/D/P
[2019-04-21 15:55] LABS: TROPONIN-I 0.294 ng/mL (0.000-0.060)
--- NOTE | 2019-04-21 16:15 | NUR ---
RTN TO T4, A/OX3, SKIN W/D/P. LYING SUPINE
--- NOTE | 2019-04-21 16:15 | NUR ---
91/63 (71) RESP 24-26 O2 @ 4 PNC
--- NOTE | 2019-04-21 16:28 | NUR ---
BP 92/65 (74)
--- NOTE | 2019-04-21 17:53 | NUR ---
C/O CP WITH MOVEMENT OR BREATHING. PATRIC ATKINS NOTIIED AND MEDS ADMIN
--- NOTE | 2019-04-21 18:20 | NUR ---
RESTING IN BED WITH SNORING RESP. AROUSES WHEN NAME CALLED
--- NOTE | 2019-04-21 19:03 | NUR ---
REPORT CALLED TO JOHN DO BY SBAR FORMAT
--- NOTE | 2019-04-21 19:20 | NUR ---
PT TRANSPORTED TO [facility] VIA STRETCHER WITH CM AND RN. CONDITION STABLE. AMIODARONE GTT, AND NA BICARB GTT INFUSING UPON TX TO ROOM.
--- NOTE | 2019-04-21 19:36 | NUR ---
PT ARRIVED FROM ER VIA STRETCHER. PT UNSURE ABOUT WHAT MEDICINES HE TAKES REGULARLY. POOR HISTORIAN. EASILY SIDE TRACKED. ASSESSMENT DONE SEE FLOW SHEET. L FOREARM FISTULA NO BRUIT OR THRILL. DR GAVIRIA INFORMED. LENA. YOSI NOTED. NO SIGNS OF ACUTE DISTRESS NOTED WILL CONTINUE TO MONITOR.
[2019-04-21] MEDS ORDERED: BETAPACE 120 M120 MG PO (19:43)
[2019-04-21] MEDS ORDERED: LEVOTHYROXINE100 MCG (19:44)
--- NOTE | 2019-04-21 20:13 | NUR ---
DR SYLVESTER INFORMED OF PT STATUS. ORDER TO CONTINUE AMIO DRIP. ORDER TO HOLD ALL OTHER CARDIAC MEDS UNTIL FURTHER NOTICE. VSS. WILL CONTINUE TO MONITOR.
--- NOTE | 2019-04-21 20:57 | NUR ---
MEDS GIVEN PER MAR VSS NO SING SOF ACUTE DISTRESS NOTED.
[2019-04-22] VITALS (25 sets, daily range): BP systolic 93–126; BP diastolic 56–99; Ht 193 cm; Wt 104.6 kg
--- NOTE | 2019-04-22 00:08 | NUR ---
2300 PT REASSESSMENT COMPLETED. PT MOANING OUT, WHEN ASKED WHATS WRONG PATIENT RESPONDED, "I JUST NEED SOME HELP" PT WAS ADVISED THAT HE WAS IN THE HOSPITAL AND WE WERE HELPING HIM.
--- NOTE | 2019-04-22 01:00 | NUR ---
NO CHANGING IN PATIENT AT THIS TIME. WILL MONITOR FOR CHANGES
--- NOTE | 2019-04-22 03:01 | NUR ---
REASSESSMENT DONE SEE FLOW SHEET. PT COMPLAINS OF BACK PAIN WANTING PAIN MANAGEMENT. UNABLE TO CORRECTLY ANSWER TIME AND SITUATION QUESTIONS. RANDOMLY SAYS INAPPROPRIATE PHRASES. YOSI 1ST DEGREE BLOCK HEMO STABLE. WILL CONTINUE TO MONITOR.
[2019-04-22 03:09] LABS: BASOPHILS 0.1 % (0-2); EOSINOPHILS 0 % (0-7); HEMATOCRIT 39.9 % (42.0-54.0); HEMOGLOBIN 13.7 g/dL (13.5-17.5); IMMATURE GRANULOCYTES 0.3 % (0-5); LYMPHOCYTES 4.8 % (15-50); MCH 36.1 pg (26.0-34.0); MCHC 34.3 g/dL (31.0-37.0); MEAN PLATELET VOLUME 12.7 fL (7.4-10.4); MONOCYTES 8.8 % (2-11); PLATELET COUNT 125 10x3/uL (130-400); RDW 16.6 % (11.5-14.5); WBC 10.9 10x3/uL (4.8-10.8)
[2019-04-22 03:33] LABS: ANION GAP 27.6 mmol/L (8-16); CARBON DIOXIDE 18.8 mmol/L (21.0-32.0); MAGNESIUM - SERUM 2.1 mg/dL (1.8-2.4); POTASSIUM - SERUM 5.4 mmol/L (3.5-5.1)
[2019-04-22 03:35] LABS: PHOSPHOROUS 9.8 mg/dL (2.5-4.9)
[2019-04-22 03:36] LABS: TROPONIN-I 0.283 ng/mL (0.000-0.060)
--- NOTE | 2019-04-22 05:41 | NUR ---
0500 I&O COMPLETED ALONG WITH DAILY WEIGHT. PT STILL C/O BACK PAIN, PT UNABLE TO ANSWER TIME AND SITUATION CORRECTLY. SB WITH 1ST DEGREE BLOCK, WILL CONTINUE TO MONITOR
--- NOTE | 2019-04-22 16:21 | NUR ---
0700-RECIEVED PER FLOW SHEET-NOTED MARKED ABDULKADIR COLOUR-TEMP ORAL-90.0-VEEKIF-33-LETHARGIC-MOANING -GUARDING ABD-L LATERAL-DR CARTER NOTIFIED OF SAME-WARMING BLANKET PLACED-40 C- 0730-DR GAVIRIA AT BEDSIDE-INFORMED OF L FISTULA-NO BRUIT/TRILL-PT NOT GUARDING ABD WITH PALPATION AT THIS TIME-ABLE TO CONVERSE SMALL AMOUNT WITH DR CARTER CONTINUES TO MOAN 0800-DR WHITTINGTON RETURNED CALL IFORMED OF CONSULT- ORDERED BY DR CARTER 0815-CALLED DAUGHTER-UP DATE GIVEN AND CONSENT GIVEN FOR PLACEMENT OF TRIALYSIS CATHETER-DAUGHTER VOCALIZED THAT MORPHINE MAKES HIM CONFUSED 0930-DR WHITTINGTON AT BEDSIDE-SEE PHYSICIAN ENTRY-DR VERGARA NOTIFIED OF PT ADMIT AND SPOKE WITH DR WHITTINGTON-TRIALYSIS CATH PLACED-PT NPO- 1045-DR SYLVESTER AT BEDSIDE-STATUS UPDATE GIVEN AND PLAN FOR DIALYSIS FLOYD-CONFIRMED AGREE WITH FLUID CHALLENGE-250ML FOR SYS<120-SAME STARTED 1115-ECHO CARDIOGRAM IN PROGRESS 1200-DAUGHTER AT BEDSIDE-PT HAD DIFFICULTY RECOGNIZING AND ABLE TO STATE SITUATION-UPDATE GIVEN WITH TRIALYSIS PLACEMENT AND FOLLOW UP ECHOCARDIOGRAM PLANNED DIALYSIS AND ADDITIONAL ANTIBIOTICS FOR SUSPECTED DIVERTICULITUS PER DR CARTER 1300-DIALYSIS SETUP IN PROGRESS-PT CONTINUES CONFUSION-AND MOANING 1430-DIALYSIS IN PROGRESS
--- NOTE | 2019-04-22 18:00 | NUR ---
1550-DIALYSIS COMPLETED 1800-COMPLETE AM CARE DONE-ATTEMPTING TO CLIMB OUT OF BED--BED ALARM TURNED ON REPOSITIONED IN BE-VOCALIZING HALLUCINATIONS "DID YOU SEE IT"
--- NOTE | 2019-04-22 21:01 | NUR ---
1899 PT ASSESSMENT COMPLETED AT THIS TIME. PT MOANING OUT AND C/O PAIN TO ABD AND BACK. PT MORE ALERT AND TALKING, PT IS STILL CONFUSED AT WHERE HE IS, WHAT TIME OF DAY OR THE DATE IT IS, OR HIS SITUATION. PT STATES THAT HE NEEDS TO GO TO THE EMERGENCY ROOM. PT WAS REORIENTED THAT HE WAS IN THE HOSPITAL IN ICU. 2043 DR. GAVIRIA WAS CALLED DUE TO THE PATIENT MKOANING OUT AND C/O PAIN EVEN AFTER BEING REORIENTED AND INFROMED THAT IT WAS NOT TIME FOR ANY MORE MEDICINE AT THIS TIME. DR. GAVIRIA ORDERED TO D/C THE MORPHINE AND START THE PATIENT ON BUPERNEX PRN FOR PAIN. NEW ORDERS NOTED
--- NOTE | 2019-04-22 21:58 | NUR ---
PT MOANING, WHEN CHECKING ON PATIENT HE WAS NOTED TO BE DIAPHORECTIC, TEMP WAS CHECKED AND FOUNF TO BE 98.3 ORAL. FSBS WAS CHECKED AND FOUND TO BE 93. PT DROWSY FROM PAIN MEDICINE, AWAKES TO NAME. RESP EVEN NON LABORED, WILL CONT. TO MONITOR
--- NOTE | 2019-04-22 22:49 | NUR ---
PT CONTINUES TO MOAN OUT SOME, PT AWAKES TO NAME, RESP EVEN NON LABORED. WILL CONTINUE TO MONITOR
--- NOTE | 2019-04-22 23:42 | NUR ---
2300 REASSESSMENT COMPLETED AT THIS TIME. PT MORE DROWSY, BUT AWAKES TO LIGHT STIMULI AND ANSWERS QUESTIONS, RESP EVEN, AT THIS TIME. WILL MONITOR FOR CHANGES IN PATIENTS CONDITION.
[2019-04-23] VITALS (16 sets, daily range): BP systolic 82–134; BP diastolic 40–86
--- NOTE | 2019-04-23 01:05 | NUR ---
PT RESTING WITH EYES CLOSED, RESP EVEN, NON LABORED, WILL MONITOR FOR CHANGES
--- NOTE | 2019-04-23 03:28 | NUR ---
0300 REASSESSMENT COMPLETED AT THIS TIME
--- NOTE | 2019-04-23 04:32 | NUR ---
IN AND OUT THEODORE WAS DONE ON THE PATIENT. NO URINE WAS RETURNED OR NOTED IN THE DRAINAGE TUBE. NO DIFFCULTY NOTED ON INSERTION, PT QAMAR WELL.
--- NOTE | 2019-04-23 04:54 | NUR ---
PT GIVEN CHG BATH, AND COMPLETE LINEN CHANGE WAS DONE. PT QAMAR WELL.
[2019-04-23 05:23] LABS: HEMATOCRIT 40.1 % (42.0-54.0); HEMOGLOBIN 13.5 g/dL (13.5-17.5); MCH 35.3 pg (26.0-34.0); MCHC 33.7 g/dL (31.0-37.0); MEAN PLATELET VOLUME 12.7 fL (7.4-10.4); RBC 3.82 10x6/uL (4.20-6.10); RDW 16.9 % (11.5-14.5); WBC 13.1 10x3/uL (4.8-10.8)
[2019-04-23 05:24] LABS: PLATELET COUNT 81 10x3/uL (130-400)
[2019-04-23 05:41] LABS: ANION GAP 28.8 mmol/L (8-16); CALCIUM 8.8 mg/dL (8.5-10.1); CREATININE - SERUM 8.5 mg/dL (0.6-1.3); MAGNESIUM - SERUM 2.4 mg/dL (1.8-2.4); POTASSIUM - SERUM 5.8 mmol/L (3.5-5.1)
[2019-04-23 05:46] LABS: PHOSPHOROUS 12.4 mg/dL (2.5-4.9)
[2019-04-23 06:15] LABS: LYMPHOCYTES 6 % (15-50); MONOCYTES 8 % (2-11); NEUTROPHILS 78 % (40-80)
[2019-04-23 06:16] LABS: PLATELET ESTIMATE DECREASED; PLATELET MORPHOLOGY GIANT PLTS PRESENT
--- NOTE | 2019-04-23 06:24 | NUR ---
DR. GAVIRIA CALLED ABOUT CRITCAL OF RESULTS OF PHOSPHORUS, NO NEW ORDERS NOTED
--- NOTE | 2019-04-23 12:16 | NUR ---
0715-RECIEVED PER FLOW SHEET-AWAKE MOANING-ATTEMPTED TO GET PT TO SPECIFY WHERE PAIN-"MY BACK/STOMACH"-RESTLESS IN BED 0745-BUPRENEX 0.1 GIVEN-FOR 3 LEVEL WITH 2 CHECK 0900-CONTINUES MOANING NOT ABLE TO LOCALIZE 1030-DR SYLVESTER AT BESIDE 1040-DR WHITTINGTON AT BEDSIDE-PT MOANING -RESPONDS TO DR WHITTINGTON WITH MY BELLY 1045-HR 40/RR 10 AGONAL-PLACED SUPINE AND CODE BLUE CALLED-SEE CODE BLUE SHEET 1100-RENAL SERVICES AT BEDSIDE -[id number] AT BEDSIDE-PORT CXR COMPLETE FOR ET TUBE PLACEMENT-RT AT BEDSIDE FOR VENT MANAGEMENT-DR MARI NOTIFIED OF CONSULT 1030-ABG DRAWN 1145-LAB DRAWN
[2019-04-23 13:26] LABS: ALBUMIN 3.8 g/dL (3.4-5.0); BILIRUBIN - TOTAL 5.37 mg/dL (0.2-1.3); CARBON DIOXIDE 15.4 mmol/L (21.0-32.0); CREATININE - SERUM 8.9 mg/dL (0.6-1.3); PROTEIN - SERUM 6.7 g/dL (6.4-8.2)
[2019-04-23 13:27] LABS: POTASSIUM - SERUM 6.4 mmol/L (3.5-5.1)
--- NOTE | 2019-04-23 17:56 | NUR ---
1420 -DR MARI AT BEDSIDE AND SPOKE WITH DAUGHTER-DAUGHTER STATED DECLINING ANY FURTHER DIALYSIS TREATMENTS FOR FATHER-ONLY LEGAL NEXT OF KIN-REQUESTED ET TUBE REMOVED-DR MARI RECOMMENDED TERMINAL EXTUBATION- 1430-TERMINAL EXTUBATION ORDERED BY DR SYLVESTER REQUESTED BY DAUGHTER AND RECOMMENDED BY DR MARI-DAUGHTER REQUESTED TO WAIT UNTIL ADDITIONAL FAMILY ARRIVED TO SAY THERE GOOD BYES 1515-DAUGHTER CALLED NURSE IN - AND STATED READY-DIPRIVAN TURNED OFF-BICARB IV TURNED OFF-MORPHINE 10MG IVP GIVEN PER ORDER-RESP THERAPIST NOTIFIED 1530-RESP THERAPY AND RN AT [facility]-FAMILY AGREED TO STEP OUT OF ROOM FOR REMOVAL OF ET TUBE-FAMILY RETURNED WITHIN 3MIN-DAUGHTER ONLY RR 6 HR 60-PRIVACY PROVIDED 1559-NOTED ASYSTOLE ON MONITOR-DR GAVIRIA PAGED WITH SAME 1615-RETURN CALL FROM DR GAVIRIA AND ER DR CALLED REQUESTED TO PRONOUNCE 1644-PT PRONOUNCED BY DR GOMEZ-JESSIE NOTIFIED-DAUGHTER STATED ALL BELONGINGS WERE TAKEN HOME ON WEDNESDAY IN ER-INCLUDING A GOLD CHAIN RELEASE OF BODY TO [facility] CALLED
--- NOTE | 2019-04-23 18:39 | NUR ---
REMOVED BY [facility]
--- NOTE | 2019-05-01 13:55 | CN ---
PATIENT NAME:LEO LEUNG MEDICAL RECORD: [id number] : 52 LOCATION:[facility] ADMIT DATE: 04/21/19 ACCOUNT: [id number] CONSULTING PHYSICIAN: GYPSY SYLVESTER MD REFERRING PHYSICIAN: HECTOR GAVIRIA MD DATE OF CONSULTATION: 04/21/2019 Cardiology Consultation HISTORY OF PRESENT ILLNESS: A 69-year-old man with extensive cardiovascular history including atrial fibrillation, hypertension, coronary artery disease, status post multiple interventions as well as severe cardiomyopathy of 20%, admitted, questionable sepsis with abdominal pain and has been hypothermic although this measures with warming measures on broad-spectrum antibiotics. She had an episode of ventricular tachycardia. This responded nicely to cardioversion, does have a history of atrial fibrillation on sotalol therapy. Cardiac enzymes are elevated. Suspect this is multifactorial. No recent ischemic symptomatology. We are asked to him her concerning his cardiovascular status. PAST MEDICAL HISTORY: Includes: 1. History of hypertension. 2. Hyperlipidemia. 3. Chronic renal insufficiency, on dialysis. 4. Atrial fibrillation. 5. Hypothyroidism, on replacement. MEDICATIONS: Include: Synthroid 100 mcg every day, Pepcid 40 every day, Atarax 25 q.i.d. p.r.n., Zoloft 100 every day, Neurontin 100 b.i.d., aspirin 325 every day, sotalol 120 b.i.d., and Plavix 75 every day. ALLERGIES: TRAMADOL. SOCIAL HISTORY: Nonsmoker. No illicit drug use. Until recently has been quite active, able to do routine yard work, etc. REVIEW OF SYSTEMS: The patient reports easy bruising but reports no swollen glands. The patient reports no fever, no night sweats, no significant weight gain, no significant weight loss. No significant exercise tolerance. The patient reports no dry eyes, no irritation, no vision change. Patient reports no difficulty hearing and no ear pain. Patient reports no frequent nose bleeds or nose and sinus problems. Patient reports on arm pain on exertion. No shortness of breath while lying down. No history of heart murmur. Patient reports no cough, no wheezing or coughing up blood. Patient reports no abdominal pain, no vomiting. Normal appetite. No diarrhea and not vomiting blood. No nausea and no constipation. Patient reports no incontinence. No difficulty urinating. No hematuria. No increased frequency. Patient reports no muscle aches. No weakness, no arthralgias, no back pain. No swelling of the extremities. Patient reports no abnormal mole, no jaundice, no rashes. Reports no loss of consciousness. No weakness and no numbness. No seizures, dizziness, or headaches. The patient reports no depression, no sleep disturbance, feeling safe in a relationship and no alcohol abuse. Patient reports on fatigue. Reports no runny nose or sinus pressure. No itching, no hives, and no frequent sneezing. CONSULT REPORT [id number] LEO LEUNG PHYSICAL EXAMINATION: GENERAL: Chronically ill-appearing gentleman in no acute distress, is somewhat more somnolent than usual. VITAL SIGNS: 103/75, pulse 80 and irregular. HEENT: Normocephalic, atraumatic. NECK: No bruits are noted. HEART: Regular, II/ systolic ejection murmur, questionable S3 gallop. LUNGS: Good air excursion. ABDOMEN: Soft, nontender. EXTREMITIES: Pulses are decreased. 1+ edema. IMPRESSION: Cardiomyopathy, ventricular arrhythmia may be underlying this current illness and increased catacholmine drive, etc. Additionally, given bradycardia on sotalol with marginal QT will hold this agent. We switched to amiodarone, recheck echo for baseline. Further recommendations as above. TRANSINT:[id number] Voice Confirmation ID: [id number] DOCUMENT ID: [id number] GYPSY SYLVESTER MD at 1355 CC: [id number] DICTATION DATE: 04/22/19 1133 SOUNDSCRIBER MECHANIC: 04/22/192229 DIS IN 04/23/19 [place] [address] [place] [address]
--- NOTE | 2019-05-01 13:55 | EC ---
PATIENT:LEO LEUNG DATE OF SERVICE: 04/21/19 SEX: M MEDICAL RECORD: [id number] DATE OF : 52 LOCATION:[place] [address] AGE OF PATIENT: 69 ADMISSION DATE: 04/21/19 REFERRING PHYSICIAN: INTERPRETING PHYSICIAN: GYPSY SYLVESTER MD ECHOCARDIOGRAM REPORT ECHO CHARGES 4 ECHO COMPLETE Date: 04/22/19 CLINICAL DIAGNOSIS: CMP ECHOCARDIOGRAPHIC MEASUREMENTS (adult normal given) AC root (d.<3.7cm) 3.1 cm LV Septum d (<1.2 cm> 0.6 cm Valve Excursion 2.2 cm LV Septum (systole) 0.7 cm Left Atria (s.<4.0cm> 4.7 cm LVPW d(<1.2cm) 1.6 cm RV (d.<2.3cm) 3.8 cm LVPW (sytole) 1.7 cm LV diastole(<5.6CM) 6.4 cm MV E-F(>70mm/sec) cm LV systole 5.9 cm LVOT Diameter 1.9 cm MV exc.(>10mm) cm Est.ejection fraction (50-75%) % DOPPLER: LVIT cm/sec A 67 cm/sec E 66 cm/sec LA cm/sec RVSP 24.7 mmHg LVOT 46 cm/sec AOP1/2T m/s Asc. Ao 93 cm/sec RVOT 30 cm/sec RA cm/sec PA 31 cm/sec AV Gradient Peak 3.5 mmHg AV Mean 1.9 mmHg AV Area 1.5 cm MV Gradient Peak 1.7 mmHg MV Mean 1.0 mmHg MV Area cm COMMENTS: Leadership Coach: Nelson KRUEGER [employer] Project Engineer: 3 Dr. Roberts TAPE# PACS Pericardial Effusion N DATE OF SERVICE: Adequate 2D, color flow, spectral Doppler, and M-mode. LVH is present. LV internal dimension is dilated. LV is severely globally hypokinetic. Reduced EF, estimated EF 10%. Aortic valve is sclerosed without evidence of stenosis by Doppler interrogation. Left atrium is dilated at 4.7 cm. Mitral valve shows no prolapse. Moderate MR. Right-sided chambers grossly normal. Severe TR. ECHOCARDIOGRAM REPORT [id number] LEO LEUNG TRANSINT:[id number] Voice Confirmation ID: [id number] DOCUMENT ID: [id number] GYPSY SYLVESTER MD at 1355 CC: [id number] DICTATION DATE: 04/22/19 1534 PLANT ANATOMY TEACHER: 04/23/19 0031 DIS IN 04/23/19 [facility] [address] [place] [address]
== END 2019-04-23 16:44 | DRG 871 ==
LOC: D.ER 14:04 → D.ICU 18:22 → D.CVICU 18:22
PROVIDERS: Family Medicine; ADMIT Internal Medicine Nephrology; ATTEND Internal Medicine Nephrology
PROC: 05H533Z Insertion of Infusion Device into Right Subclavian Vein, Percutaneous Approach (ICD-10-PCS; principal; 2019-04-22)
PROC: 0BH17EZ Insertion of Endotracheal Airway into Trachea, Via Natural or Artificial Opening (ICD-10-PCS; 2019-04-23)
PROC: 5A1935Z Respiratory Ventilation, Less than 24 Consecutive Hours (ICD-10-PCS; 2019-04-23)
DX: A41.9 Sepsis, unspecified organism (principal); N18.6 End stage renal disease; I50.23 Acute on chronic systolic (congestive) heart failure; G93.41 Metabolic encephalopathy; I13.2 Hypertensive heart and chronic kidney disease with heart failure and with stage 5 chronic kidney disease, or end stage renal disease; K57.92 Diverticulitis of intestine, part unspecified, without perforation or abscess without bleeding; T82.868A Thrombosis due to vascular prosthetic devices, implants and grafts, initial encounter; I47.2 Ventricular tachycardia; I46.9 Cardiac arrest, cause unspecified; E11.22 Type 2 diabetes mellitus with diabetic chronic kidney disease; Z99.2 Dependence on renal dialysis; E87.5 Hyperkalemia; D72.829 Elevated white blood cell count, unspecified; Z66 Do not resuscitate; J44.9 Chronic obstructive pulmonary disease, unspecified; I48.91 Unspecified atrial fibrillation; D63.1 Anemia in chronic kidney disease; K52.9 Noninfective gastroenteritis and colitis, unspecified; K21.9 Gastro-esophageal reflux disease without esophagitis; E86.0 Dehydration; I25.10 Atherosclerotic heart disease of native coronary artery without angina pectoris; R10.13 Epigastric pain; I49.01 Ventricular fibrillation; D69.6 Thrombocytopenia, unspecified; F17.200 Nicotine dependence, unspecified, uncomplicated; R40.2244 Coma scale, best verbal response, confused conversation, 24 hours or more after hospital admission; R40.2354 Coma scale, best motor response, localizes pain, 24 hours or more after hospital admission; R40.2134 Coma scale, eyes open, to sound, 24 hours or more after hospital admission